=== PATIENT | female | born 1970 | race Caucasian/White ===

== ENCOUNTER → 2016-10-24 | Outpatient (CLI) | payer OTHER ==
[~2016-10-24] MED LIST: ACT30 PO; ALBUAER19 INH; AMT24 PO; ASPCH81X PO; ATOR-24 PO; BUPR75TA20 PO; CEPH500C2 PO; CLOP1TAB54 PO; CYM/30 PO; DOCU100C31 PO; DULO60CA44 PO; FURO-85 PO; GABA-113 PO; GABA1CAP5 PO; GLIP1TAB85 PO; HYDR-5688 PO; LEVO-366 PO; LEVO25TA5 PO; LISI40TA PO; METO25TA56 PO; MORP15TA19 PO; POLY335019 PO; SITA100T3 PO; TORS20TA2 PO; TRIA37.5 PO
[2016-10-24 20:43] LABS: URINE APPEARANCE CLEAR (CLEAR); URINE BILIRUBIN NEG (NEG); URINE COLOR YELLOW; URINE NITRITE NEG (NEG); URINE SPECIFIC GRAVITY 1.008 (1.000-1.030); UROBILINOGEN NEG (NEG)
[2016-10-24 20:56] LABS: MANUAL MICROSCOPIC REQUIRED? NO; REVIEW REQ? YES
== END | disposition home or self-care (01) ==
LOC: C.LABSPEC 12:06
PROVIDERS: ATTEND Nurse Practitioner Family
DX: M54.9 Dorsalgia, unspecified (principal)

== ENCOUNTER → 2016-12-25 | Outpatient (CLI) | payer OTHER ==
[2016-12-25 13:04] LABS: ESTIMATED AVERAGE GLUCOSE 154 mg/dl; HA1C FLAG Normal (Normal)
[2016-12-25 13:21] LABS: ALT/SGPT 33 U/L (12-78); AST/SGOT 25 U/L (15-37); BLOOD UREA NITROGEN 17 mg/dl (7-18); CARBON DIOXIDE 25 mmol/L (21-32); CHLORIDE 103 mmol/L (98-107); CREATININE 0.73 mg/dl (0.60-1.20); GLUCOSE 79 mg/dl (70-99); POTASSIUM 4.2 mmol/L (3.5-5.1); SODIUM 137 mmol/L (136-145)
[2016-12-25 13:32] LABS: ALB/GLOB RATIO 0.8 (0.9-2); ALKALINE PHOSPHATASE 65 U/L (45-117); CHOLESTEROL 129 mg/dl (0-200); CHOLESTEROL/HDL RATIO 5.9; HDL CHOLESTEROL 22 mg/dl; LDL CHOLESTEROL CALCULATED 81 mg/dl; TRIGLYCERIDES 129 mg/dl (0-150); VERY LOW DENSITY LIPOPROT CALC 26 mg/dl
== END | disposition home or self-care (01) ==
LOC: C.LABPBG 09:50
PROVIDERS: ATTEND Family Medicine
DX: I10 Essential (primary) hypertension (principal); E78.5 Hyperlipidemia, unspecified; E03.9 Hypothyroidism, unspecified; E55.9 Vitamin D deficiency, unspecified

== ENCOUNTER → 2017-01-01 | Outpatient (CLI) | payer OTHER ==
--- NOTE | 2017-01-01 09:19 | DIAGNOSTIC IMAGING REPORT ---
ABDOMEN COMPLETE (US) CLINICAL HISTORY: Denies abdominal pain COMPARISON STUDY: CT scan dated February 12, 2012 FINDINGS: No focal hepatic masses are visualized. There is no intra or extrahepatic biliary ductal dilatation. The common bile duct measures 5 mm. The pancreas appears normal as visualized. The gallbladder appears sonographically normal. The common bile duct measures 5 mm. No splenic masses are visualized. The spleen measures 10 cm. The right kidney measures 11.4 cm in length. The left kidney measures 12.1 cm in length. No focal renal masses are visualized. There is no hydronephrosis. Visualized portions aorta are unremarkable in appearance. No abnormality IVC are visualized. IMPRESSION: No significant abnormalities identified Electronically signed by: Collin Zapata M.D. 01/01/2017 9:18 AM Dictated Date/Time: 01/01/2017 9:15 AM
== END | disposition home or self-care (01) ==
LOC: C.ULTRBC 08:25
PROVIDERS: ATTEND Family Medicine
DX: R10.9 Unspecified abdominal pain (principal); R82.99 Other abnormal findings in urine

== ENCOUNTER → 2017-04-18 | Outpatient (CLI) | payer OTHER ==
[2017-04-18 13:11] LABS: BLOOD UREA NITROGEN 30 mg/dl (7-18); CALCIUM 9.8 mg/dl (8.5-10.1); CARBON DIOXIDE 24 mmol/L (21-32); CHLORIDE 101 mmol/L (98-107); GLUCOSE 180 mg/dl (70-99); POTASSIUM 4.1 mmol/L (3.5-5.1); SODIUM 136 mmol/L (136-145)
== END | disposition home or self-care (01) ==
LOC: C.LABPBG 09:17
PROVIDERS: ATTEND Family Medicine
DX: I10 Essential (primary) hypertension (principal)

== ENCOUNTER → 2017-05-31 | Outpatient (CLI) | payer OTHER ==
[2017-05-31 18:41] LABS: BLOOD UREA NITROGEN 25 mg/dl (7-18); BUN/CREATININE RATIO 25.3 (10-20); CARBON DIOXIDE 28 mmol/L (21-32); CHLORIDE 101 mmol/L (98-107); CREATININE 0.99 mg/dl (0.60-1.20); GLUCOSE 218 mg/dl (70-99); POTASSIUM 4.6 mmol/L (3.5-5.1); SODIUM 132 mmol/L (136-145)
== END ==
LOC: C.LABPBG 11:27
PROVIDERS: ATTEND Family Medicine
DX: R25.2 Cramp and spasm (principal)

== ENCOUNTER → 2017-06-18 | Outpatient (CLI) | payer OTHER ==
[2017-06-18 17:01] LABS: BLOOD UREA NITROGEN 24 mg/dl (7-18); BUN/CREATININE RATIO 22.2 (10-20); CALCIUM 9.8 mg/dl (8.5-10.1); CARBON DIOXIDE 26 mmol/L (21-32); CHLORIDE 101 mmol/L (98-107); GLUCOSE 235 mg/dl (70-99); POTASSIUM 4.7 mmol/L (3.5-5.1); SODIUM 134 mmol/L (136-145)
[2017-06-18 17:12] LABS: ALT/SGPT 36 U/L (12-78); CHOLESTEROL 146 mg/dl (0-200); CHOLESTEROL/HDL RATIO 5.8; HDL CHOLESTEROL 25 mg/dl; LDL CHOLESTEROL CALCULATED 86 mg/dl; TRIGLYCERIDES 173 mg/dl (0-150); VERY LOW DENSITY LIPOPROT CALC 35 mg/dl
[2017-06-19 06:04] LABS: ESTIMATED AVERAGE GLUCOSE 192 mg/dl; HA1C FLAG Normal (Normal)
== END | disposition home or self-care (01) ==
LOC: C.LABPBG 13:32
PROVIDERS: ATTEND Family Medicine
DX: E87.1 Hypo-osmolality and hyponatremia (principal); E11.9 Type 2 diabetes mellitus without complications; I10 Essential (primary) hypertension; E78.5 Hyperlipidemia, unspecified; E03.9 Hypothyroidism, unspecified

== ENCOUNTER 2017-07-02 17:18 | Emergency (ER) | payer OTHER ==
[~2017-07-02] VITALS: Ht 154.9 cm; Wt 112.6 kg
[~2017-07-02 17:18] MED LIST changes: -ACT30 PO; -AMT24 PO; -BUPR75TA20 PO; -DOCU100C31 PO; -FURO-85 PO; -GABA1CAP5 PO; -LEVO-366 PO; -POLY335019 PO; -TRIA37.5 PO
[2017-07-02 17:47] VITALS: TEMP 37; Ht 154.9 cm; Wt 112.6 kg
[2017-07-02] MEDS ORDERED: ACT30 PO (18:14)
[2017-07-02] MEDS ORDERED: FURO-85 PO (18:14)
[2017-07-02] MEDS ORDERED: DOCU100C31 PO (18:14)
[2017-07-02] MEDS ORDERED: POLY335019 PO (18:14)
[2017-07-02] MEDS ORDERED: GABA1CAP5 PO (18:14)
[2017-07-02] MEDS ORDERED: BUPR75TA20 PO (18:14)
[2017-07-02] MEDS ORDERED: TRIA37.5 PO (18:14)
[2017-07-02] MEDS ORDERED: AMT24 PO (18:14)
[2017-07-02] MEDS ORDERED: ACETAMINOPHEN 500 MG TAB PO STA (18:29)
[2017-07-02] MEDS ORDERED: CYCLOBENZAPRINE HCL 5 MG TAB PO STA (18:29)
[2017-07-02] MEDS ORDERED: SODIUM CHLORIDE 0.9% 500ML 500 ML IV STA (18:29)
[2017-07-02] MEDS ORDERED: TRAMADOL HCL 50 MG TAB PO STA (18:29)
[2017-07-02] MEDS ORDERED: OPTIRAY 320 IV PRN (18:45)
--- NOTE | 2017-07-02 18:55 | DIAGNOSTIC IMAGING REPORT ---
CHEST ONE VIEW PORTABLE CLINICAL HISTORY: L sided flank pain COMPARISON STUDY: May 28, 2014 FINDINGS: The heart is the upper limits of normal in size. Prominence of the right paratracheal soft tissues, is likely secondary to film rotation. There is central vascular prominence. There is no focal pulmonary consolidation. There are no pleural effusions. There is no free intraperitoneal air.[ IMPRESSION: 1. Central vascular prominence, finding likely accentuated due to the patient's body habitus 2. No evidence of focal pulmonary consolidation 3. No evidence of free intraperitoneal air Electronically signed by: Collin Zapata M.D. 07/02/2017 6:53 PM Dictated Date/Time: 07/02/2017 6:52 PM
[2017-07-02 19:05] LABS: BASO % 0.3 %; BASO ABS # 0.04 K/uL (0-0.2); COMPLETE YES; HEMATOCRIT 44.2 % (37-47); IG% 0.4 %; LYMPH % 16.6 %; LYMPH ABS # 2.09 K/uL (1.2-3.4); MEAN CELL VOLUME 82.9 fL (80-100); MEAN CORPUSCULAR HGB CONC 33.7 g/dl (32-36); MEAN PLATELET VOLUME 10.3 fL (7.4-10.4); MONO % 8.4 %; NEUT % 72.3 %; PLATELET COUNT 298 K/uL (130-400); RED BLOOD COUNT 5.33 M/uL (4.2-5.4); WHITE BLOOD COUNT 12.57 K/uL (4.8-10.8)
--- NOTE | 2017-07-02 19:05 | EMERGENCY ROOM VISIT NOTE ---
History Report prepared by Yakelin: Jose Otero Under the Supervision of: Dr. Torey Meadows M.D. First contact with patient: 17:59 Chief Complaint: FLANK PAIN Stated Complaint: LF SIDE BY KIDNEY IS SWOLLEN & PAINFUL History of Present Illness The patient is a 47 year old white female with a past medical history of HTN, CVA, TIA, hyperlipidemia, diabetes, kidney abscess and kidney stone who presents to the ED with a cc of intermittent left flank pain beginning two days ago. Pain worse with walking, not worsened with urination. Describes pain as "sharp". Patient on Hydrocodone and Morphine for chronic back pain. Recent scan which showed multiple stones in her kidneys. Positive low back pain. Negative nausea, vomiting, fevers, or chills. Patient is a smoker. No recent trauma or injury. Uses a walker to ambulate at home. Patient on Plavix and aspirin for her previous CVA and TIA. Supposed to be on supplemental oxygen at night, but does not regularly wear it. Source of History: patient Onset: Two days ago Position: other (left flank) Quality: sharp Timing: intermittent Modifying Factors (Worsening): other (walking) Associated Symptoms: + back pain (low), No fevers, No chills, No nausea, No vomiting Review of Systems See HPI for pertinent positives and negatives. A total of ten systems were reviewed and were otherwise negative. Past Medical & Surgical Medical Problems: (1) History of asthma (2) History of diabetes mellitus (3) History of hypertension (4) History of kidney stones (5) History of TIA (transient ischemic attack) Family History Diabetes mellitus FH: cancer Hypertension Social History Smoking Status: Current Every Day Smoker Alcohol Use: occasionally Marital Status: Housing Status: lives with family Occupation Status: unemployed Current/Historical Medications Scheduled Albuterol Inhaler (Ventolin Inhaler), 2 PUFFS INH QID Aspirin (Aspirin Chewable), 81 MG PO DAILY Atorvastatin (Lipitor), 80 MG PO DAILY Bupropion (Wellbutrin), 150 MG PO DAILY Clopidogrel Bisulfate (Plavix), 75 MG PO DAILY Docusate Sodium (Docusate Sodium), 100 MG PO BID Furosemide (Lasix), 20 MG PO DAILY Gabapentin (Neurontin), 400 MG PO TID Glipizide Xl (Glucotrol Xl), 10 MG PO QAM Hydrocodone/Acetaminophen 5MG/325MG ([place] 5MG/325MG), 1 TAB PO TID Levofloxacin (Levaquin), 750 MG PO DAILY Levothyroxine Sodium (Levothyroxine Sodium), 25 MCG PO DAILY Lisinopril (Zestril), 40 MG PO QAM Lisinopril (Zestril), 20 MG PO QPM Lubiprostone (Amitiza), 24 MCG PO BID Metoprolol Tartrate (Lopressor) (Lopressor), 50 MG PO BID Morphine Cont Rel (Ms Contin), 15 MG PO TID Pioglitazone (Actos), 45 MG PO DAILY Polyethylene Glycol 3350 (Miralax), 17 GM PO DAILY Sitagliptin Phosphate (Januvia), 100 MG PO DAILY Triamterene/Hctz (Dyazide 37.5MG/25MG), 1 TAB PO TID Allergies Coded Allergies: Aripiprazole (Verified Allergy, Intermediate, confused, 07/02/17) Cephalexin (Unverified Allergy, Unknown, HIVES, 07/02/17) Sulfa Drugs (Verified Allergy, Unknown, ., 07/02/17) Physical Exam Vital Signs Date Time Temp Pulse Resp B/P (MAP) Pulse Ox O2 Delivery O2 Flow Rate FiO2 07/02/17 22:29 87 18 106/68 96 Room Air 07/02/17 21:35 94 18 125/73 96 Room Air 07/02/17 17:47 37.0 105 20 113/65 94 Room Air Physical Exam GENERAL: Awake, alert, well-appearing, NAD, appears older than stated age. HENT: Normocephalic, atraumatic. EYES: Normal conjunctiva. Sclera non-icteric. NECK: Supple. No nuchal rigidity. FROM. RESPIRATORY: Wheezing throughout all lung damon. CARDIAC: RRR, no MRG ABDOMEN: Soft, NTND, BS+ BACK: Reproducible left CVA TTP. No erythema or calor noted. MSK: No chest wall TTP, no LE edema NEURO: GCS 15, CN 2-12 intact, moves all 4s on command SKIN: No rash or jaundice noted. Scars on upper back. Medical Decision & Procedures ER Provider Diagnostic Interpretation: Radiology results as stated below per my review and radiologist interpretation: CT ABD/PELVIS IV CONTRAST ONLY FINDINGS: Lower chest: There is right middle lobe atelectasis/consolidation. Liver: The liver is enlarged. Mild hepatic steatosis is suspected. There is mild hepatomegaly. Gallbladder: Unremarkable. Spleen: Normal in size and attenuation. Pancreas: Unremarkable. Adrenal glands: Unremarkable. Kidneys: There are several right renal calcifications which are likely cortical. There is right renal cortical scarring. There is an 8 mm left renal hypodensity likely representing a cyst. No solid renal masses are visualized. There is no hydronephrosis. Bowel: There are no transition zones indicate bowel obstruction. There is no evidence of acute diverticulitis. The visualized portions of the appendix appear normal. Peritoneum: There is no intraperitoneal free air or abdominal ascites. Vasculature: The abdominal aorta is normal in course and caliber. Adenopathy: None. Pelvic viscera: There is a suspected uterine fibroid. No bladder calculi are visualized. Skeletal structures: No destructive osseous lesions are seen. IMPRESSION: 1. Right renal cortical scarring. 2. No evidence of hydronephrosis 3. No evidence of bowel obstruction. No evidence of free air 4. No evidence of acute diverticulitis. No evidence of acute appendicitis. Electronically signed by: Collin Zapata M.D. 07/02/2017 9:16 PM CHEST ONE VIEW PORTABLE FINDINGS: The heart is the upper limits of normal in size. Prominence of the right paratracheal soft tissues, is likely secondary to film rotation. There is central vascular prominence. There is no focal pulmonary consolidation. There are no pleural effusions. There is no free intraperitoneal air.[ IMPRESSION: 1. Central vascular prominence, finding likely accentuated due to the patient's body habitus 2. No evidence of focal pulmonary consolidation 3. No evidence of free intraperitoneal air Electronically signed by: Collin Zapata M.D. 07/02/2017 6:53 PM Laboratory Results 07/02/17 18:50 Red Blood Count 5.33, Mean Corpuscular Volume 82.9, Mean Corpuscular Hemoglobin 28.0, Mean Corpuscular Hemoglobin Concent 33.7, Mean Platelet Volume 10.3, Neutrophils (%) (Auto) 72.3, Lymphocytes (%) (Auto) 16.6, Monocytes (%) (Auto) 8.4, Eosinophils (%) (Auto) 2.0, Basophils (%) (Auto) 0.3, Neutrophils # (Auto) 9.09, Lymphocytes # (Auto) 2.09, Monocytes # (Auto) 1.05, Eosinophils # (Auto) 0.25, Basophils # (Auto) 0.04 07/02/17 18:50 Test 07/02/17 18:50 07/02/17 19:10 07/02/17 20:56 White Blood Count 12.57 K/uL (4.8-10.8) Red Blood Count 5.33 M/uL (4.2-5.4) Hemoglobin 14.9 g/dL (12.0-16.0) Hematocrit 44.2 % (37-47) Mean Corpuscular Volume 82.9 fL (80-100) Mean Corpuscular Hemoglobin 28.0 pg (25-34) Mean Corpuscular Hemoglobin Concent 33.7 g/dl (32-36) Platelet Count 298 K/uL (130-400) Mean Platelet Volume 10.3 fL (7.4-10.4) Neutrophils (%) (Auto) 72.3 % Lymphocytes (%) (Auto) 16.6 % Monocytes (%) (Auto) 8.4 % Eosinophils (%) (Auto) 2.0 % Basophils (%) (Auto) 0.3 % Neutrophils # (Auto) 9.09 K/uL (1.4-6.5) Lymphocytes # (Auto) 2.09 K/uL (1.2-3.4) Monocytes # (Auto) 1.05 K/uL (0.11-0.59) Eosinophils # (Auto) 0.25 K/uL (0-0.5) Basophils # (Auto) 0.04 K/uL (0-0.2) RDW Standard Deviation 53.8 fL (36.4-46.3) RDW Coefficient of Variation 17.5 % (11.5-14.5) Immature Granulocyte % (Auto) 0.4 % Immature Granulocyte # (Auto) 0.05 K/uL (0.00-0.02) Prothrombin Time 11.0 SECONDS (9.0-12.0) Prothromb Time International Ratio 1.0 (0.9-1.1) Anion Gap 9.0 mmol/L (3-11) Est Creatinine Clear Calc Drug Dose 67.4 ml/min Estimated GFR () 62.3 Estimated GFR (Non- 53.8 BUN/Creatinine Ratio 19.8 (10-20) Calcium Level 9.6 mg/dl (8.5-10.1) Total Bilirubin 0.3 mg/dl (0.2-1) Direct Bilirubin mg/dl (0-0.2) Aspartate Amino Transf (AST/SGOT) 26 U/L (15-37) Alanine Aminotransferase (ALT/SGPT) 28 U/L (12-78) Alkaline Phosphatase 62 U/L (45-117) Total Protein 7.5 gm/dl (6.4-8.2) Albumin 3.0 gm/dl (3.4-5.0) Lipase 146 U/L (73-393) Chemistry Specimen Hemolysis Urine Color DK YELLOW Urine Appearance CLEAR (CLEAR) Urine pH 5.5 (4.5-7.5) Urine Specific [place] 1.021 (1.000-1.030) Urine Protein TRACE (NEG) Urine Glucose (UA) NEG (NEG) Urine Ketones TRACE (NEG) Urine Occult Blood TRACE (NEG) Urine Nitrite POS (NEG) Urine Bilirubin NEG (NEG) Urine Urobilinogen NEG (NEG) Urine Leukocyte Esterase SMALL (NEG) Urine WBC (Auto) >30 /hpf (0-5) Urine RBC (Auto) 5-10 /hpf (0-4) Urine Hyaline Casts (Auto) 5-10 /lpf (0-5) Urine Epithelial Cells (Auto) >30 /lpf (0-5) Urine Bacteria (Auto) 3+ (NEG) Troponin I < 0.015 ng/ml (0-0.045) Laboratory results reviewed by me Medications Administered Medications (Trade) Dose Ordered Sig/Alisha Route Start Time Stop Time Status Last Admin Dose Admin Sodium Chloride 500 ml @ 500 mls/hr Q1H STAT IV 07/02/17 18:29 07/02/17 19:28 DC 07/02/17 18:29 500 MLS/HR Tramadol HCl (Ultram Tab) 25 mg NOW STAT PO 07/02/17 18:29 07/02/17 18:33 DC 07/02/17 19:06 25 MG Acetaminophen (Tylenol Tab) 1,000 mg NOW STAT PO 07/02/17 18:29 07/02/17 18:33 DC 07/02/17 19:07 1,000 MG Cyclobenzaprine HCl (Flexeril Tab) 10 mg ONE STAT PO 07/02/17 18:29 07/02/17 18:33 DC 07/02/17 19:06 10 MG Ceftriaxone Sodium (Rocephin Inj) 1 gm NOW STAT IV 07/02/17 19:59 07/02/17 20:00 DC 07/02/17 19:59 1 GM ECG Indication: back/shoulder pain Rate (beats per minute): 102 Rhythm: sinus tachycardia Findings: 1st degree AV block, other (Prolonged DE. Normal axis. Questionable elevation in V4 and V5.) Comparison ECG Date: May 28, 2014 Change: no significant change ED Course 1820: The patient was evaluated in room A2. A complete history and physical exam was performed. 2209: I reevaluated the patient. Discussed results and discharge instructions: she verbalized understanding and agreement. The patient is ready for discharge. Medical Decision The patient is a 47 year old white female with a past medical history of HTN, CVA, TIA, hyperlipidemia, diabetes, kidney abscess and kidney stone who presents to the ED with a cc of intermittent left flank pain beginning two days ago. Differential diagnosis: Etiologies such as renal colic, appendicitis, diverticulitis, mesenteric ischemia, aortic pathology, infections, inflammatory bowel disease, PUD, biliary pathology, UTI, as well as others were entertained. Patient seen and evaluated the bedside. Patient has been complaining of some left-sided flank pain since Sunday. Patient's pain has been fairly constant. Patient does take aspirin and Plavix for prior CVAs and TIAs. Patient denies any recent trauma. Patient is a history of kidney stones. Patient denies any fevers or chills addition to nausea or vomiting. Patient states that her pain is worse when she voids. Denies any burning urination or blood in the urine. Patient did have labs, a urine, a CT of the abdomen pelvis with contrast completed. Patient was noted to have a urinary tract infection. Patient is CT the abdomen and pelvis didn't show any acute medical or surgical emergency. Patient's pain improved. Heart rate improved. EKG was fairly benign and had a negative troponin. Chest x-ray was clear. Patient was given strict follow-up, discharge , return precautions. Patient agreed with plan of care and patient was safely discharged home. Medication Reconcilliation Current Medication List: was personally reviewed by me Blood Pressure Screening Patient's blood pressure: Normal blood pressure Blood pressure disposition: Did not require urgent referral Impression Primary Impression: Left flank pain Additional Impressions: Encounter for smoking cessation counseling UTI (urinary tract infection) Scribe Attestation The scribe's documentation has been prepared under my direction and personally reviewed by me in its entirety. I confirm that the note above accurately reflects all work, treatment, procedures, and medical decision making performed by me. Departure Information Dispostion Home / Self-Care Prescriptions Levofloxacin (Levaquin) 500 Mg Tab 750 MG PO DAILY for 7 Days, #11 TAB Prov: Torey Meadows M.D. 07/02/17 Referrals Brandee Guadarrama MD (PCP) Patient Instructions ED UTI Cystitis Female, My [facility] Additional Instructions Please return to the emergency department if you have worsening or recurrent symptoms not amenable to at-home treatment. Please call for a follow-up appointment with her primary care physician. Please take your medications as prescribed. If you have other concerns and/or complaints please feel free to also call your primary care physician's office or return the ED for further evaluation, management, and treatment. You were found to have an elevated blood pressure today (>120 sytolic or >90 diastolic). Per medicare guidelines, you need to follow up with this blood pressure screening with your Primary Care Physician (PCP). For a new PCP call [phone]. You received narcotic or benzodiazepene medication while in the emergency room today. This is an addictive medication that may cause drowziness as well as constipation. Do not drive, operate heavy machinery, or drink alcohol under the influence of this medication. You may take 600 mg Ibuprofen every 6 hours as needed for pain with food for no more than 2 consecutive days. You may take tylenol 1000mg every 6 hours as needed for pain. You may take motrin and tylenol separately or at the same time. Take antibiotic as prescribed. You have been examined and treated today on an emergency basis only. This is not a substitute for, or an effort to provide, complete comprehensive medical care. It is impossible to recognize and treat all injuries or illnesses in a single emergency department visit. It is therefore important that you follow up closely with [facility]. Call as soon as possible for an appointment. Thank you for your time and consideration. I look forward to speaking with you again soon. Please don't hesitate to call us if you have any questions. Problem Qualifiers Additional Impressions: UTI (urinary tract infection) Urinary tract infection type: acute cystitis Hematuria presence: with hematuria Qualified Codes: N30.01 - Acute cystitis with hematuria
[2017-07-02 19:24] LABS: URINE APPEARANCE CLEAR (CLEAR); URINE BILIRUBIN NEG (NEG); URINE COLOR DK YELLOW; URINE EPITHELIAL CELL AUTO >30 /lpf (0-5); URINE NITRITE POS (NEG); URINE PH 5.5 (4.5-7.5); URINE SPECIFIC GRAVITY 1.021 (1.000-1.030); UROBILINOGEN NEG (NEG); ZZUR CULT IF INDIC CLEAN CATCH YES
[2017-07-02 19:25] LABS: MANUAL MICROSCOPIC REQUIRED? NO; REVIEW REQ? NO
[2017-07-02] MEDS ORDERED: CEFTRIAXONE SOD INJ 1 GM ADDVIAL IV STA (19:59)
[2017-07-02 20:16] LABS: ALT/SGPT 28 U/L (12-78); AST/SGOT 26 U/L (15-37)
[2017-07-02 20:17] LABS: ALKALINE PHOSPHATASE 62 U/L (45-117); BLOOD UREA NITROGEN 24 mg/dl (7-18); BUN/CREATININE RATIO 19.8 (10-20); CALCIUM 9.6 mg/dl (8.5-10.1); CARBON DIOXIDE 23 mmol/L (21-32); CHLORIDE 106 mmol/L (98-107); GLUCOSE 165 mg/dl (70-99); POTASSIUM 4.1 mmol/L (3.5-5.1); SODIUM 138 mmol/L (136-145)
--- NOTE | 2017-07-02 21:17 | DIAGNOSTIC IMAGING REPORT ---
CT ABD/PELVIS IV CONTRAST ONLY CLINICAL HISTORY: L flank pain; h/o of renal abscess and kidney stones COMPARISON STUDY: 02/12/2012 TECHNIQUE: Following the IV administration of 116 mL of Optiray-320, CT scan of the abdomen and pelvis was performed from the lung bases to the proximal femurs. Images are reviewed in the axial, sagittal, and coronal planes. IV contrast was administered without complication. A dose lowering technique was utilized adhering to the principles of ALARA. CT DOSE: 1453.98 mGy.cm FINDINGS: Lower chest: There is right middle lobe atelectasis/consolidation. Liver: The liver is enlarged. Mild hepatic steatosis is suspected. There is mild hepatomegaly. Gallbladder: Unremarkable. Spleen: Normal in size and attenuation. Pancreas: Unremarkable. Adrenal glands: Unremarkable. Kidneys: There are several right renal calcifications which are likely cortical. There is right renal cortical scarring. There is an 8 mm left renal hypodensity likely representing a cyst. No solid renal masses are visualized. There is no hydronephrosis. Bowel: There are no transition zones indicate bowel obstruction. There is no evidence of acute diverticulitis. The visualized portions of the appendix appear normal. Peritoneum: There is no intraperitoneal free air or abdominal ascites. Vasculature: The abdominal aorta is normal in course and caliber. Adenopathy: None. Pelvic viscera: There is a suspected uterine fibroid. No bladder calculi are visualized. Skeletal structures: No destructive osseous lesions are seen. IMPRESSION: 1. Right renal cortical scarring. 2. No evidence of hydronephrosis 3. No evidence of bowel obstruction. No evidence of free air 4. No evidence of acute diverticulitis. No evidence of acute appendicitis. Electronically signed by: Collin Zapata M.D. 07/02/2017 9:16 PM Dictated Date/Time: 07/02/2017 9:11 PM
[2017-07-02] MEDS ORDERED: LEVO-366 PO (22:14)
[2017-07-02 22:29] VITALS: BP 106/68; PULSE 87; O2SAT 96
--- NOTE | 2017-07-04 13:13 | Pharmacy Progress Note ---
ED Pharmacist Culture FollowUp Date of Service: Jul 04, 2017. Patient was discharged on levaquin for cystitis which was later found to be resistant to the E. Coli. Called patient regarding E. coli urine culture. She informed me she was not experiencing any new symptoms and was still afebrile. Prescription for macrobid 100mg BID X 7 days called to [place] pharmacy ) at the patient's request. Case discussed with Dr. Castle, who is the prescribing provider.
== END 2017-07-02 22:55 | disposition home or self-care (01) ==
LOC: C.EDB 17:19 → C.EDA 22:55
DX: R10.9 Unspecified abdominal pain (principal); Z71.6 Tobacco abuse counseling; N30.01 Acute cystitis with hematuria; I10 Essential (primary) hypertension; E11.9 Type 2 diabetes mellitus without complications; J45.909 Unspecified asthma, uncomplicated; E78.5 Hyperlipidemia, unspecified; F17.200 Nicotine dependence, unspecified, uncomplicated; Z86.73 Personal history of transient ischemic attack (TIA), and cerebral infarction without residual deficits; Z87.442 Personal history of urinary calculi; Z83.3 Family history of diabetes mellitus; Z82.49 Family history of ischemic heart disease and other diseases of the circulatory system; Z79.02 Long term (current) use of antithrombotics/antiplatelets; Z79.82 Long term (current) use of aspirin; Z79.84 Long term (current) use of oral hypoglycemic drugs; Z79.899 Other long term (current) drug therapy

== ENCOUNTER → 2017-07-19 | Outpatient (CLI) | payer OTHER ==
[~2017-07-19] MED LIST changes: +ACT30 PO; +AMT24 PO; +BUPR75TA20 PO; -CEPH500C2 PO; -CYM/30 PO; +DOCU100C31 PO; -DULO60CA44 PO; +FURO-85 PO; -GABA-113 PO; +GABA1CAP5 PO; +POLY335019 PO; -TORS20TA2 PO; +TRIA37.5 PO
[2017-07-19 17:28] LABS: BASO % 0.4 %; BASO ABS # 0.04 K/uL (0-0.2); COMPLETE YES; HEMATOCRIT 45.5 % (37-47); IG% 0.3 %; LYMPH % 21.4 %; LYMPH ABS # 2.32 K/uL (1.2-3.4); MEAN CELL VOLUME 84.7 fL (80-100); MEAN CORPUSCULAR HEMOGLOBIN 29.2 pg (25-34); MEAN CORPUSCULAR HGB CONC 34.5 g/dl (32-36); MEAN PLATELET VOLUME 10.2 fL (7.4-10.4); MONO % 7.8 %; NEUT % 67.1 %; PLATELET COUNT 282 K/uL (130-400); RED BLOOD COUNT 5.37 M/uL (4.2-5.4); WHITE BLOOD COUNT 10.83 K/uL (4.8-10.8)
[2017-07-19 18:17] LABS: ALB/GLOB RATIO 0.8 (0.9-2); ALKALINE PHOSPHATASE 79 U/L (45-117); ALT/SGPT 36 U/L (12-78); AST/SGOT 24 U/L (15-37); BLOOD UREA NITROGEN 26 mg/dl (7-18); BUN/CREATININE RATIO 23.6 (10-20); CALCIUM 9.4 mg/dl (8.5-10.1); CARBON DIOXIDE 25 mmol/L (21-32); CHLORIDE 102 mmol/L (98-107); GLUCOSE 188 mg/dl (70-99); POTASSIUM 4.6 mmol/L (3.5-5.1); SODIUM 135 mmol/L (136-145)
== END | disposition home or self-care (01) ==
LOC: C.LABPBG 13:09
PROVIDERS: ATTEND Family Medicine
DX: R68.83 Chills (without fever) (principal)

== ENCOUNTER → 2017-07-26 | Outpatient (CLI) | payer OTHER | END | disposition home or self-care (01) | LOC: C.LABPBG 13:33 | PROVIDERS: ATTEND Family Medicine | DX: R68.83 Chills (without fever) (principal) ==

== ENCOUNTER → 2017-12-06 | Outpatient (CLI) | payer OTHER ==
[~2017-12-06] MED LIST changes: +GABA-1220 PO; -GABA1CAP5 PO
[2017-12-06 13:02] LABS: HEMOGLOBIN A1C 7.2 % (4.5-5.6)
[2017-12-06 13:15] LABS: ALT/SGPT 36 U/L (12-78); BLOOD UREA NITROGEN 29 mg/dl (7-18); CALCIUM 9.2 mg/dl (8.5-10.1); CARBON DIOXIDE 24 mmol/L (21-32); CHOLESTEROL 147 mg/dl (0-200); CREATININE 1.11 mg/dl (0.60-1.20); GLUCOSE 129 mg/dl (70-99); POTASSIUM 4.1 mmol/L (3.5-5.1); SODIUM 135 mmol/L (136-145)
[2017-12-06 13:25] LABS: LDL CHOLESTEROL CALCULATED 91 mg/dl
== END | disposition home or self-care (01) ==
LOC: C.LABPBG 08:57
PROVIDERS: ATTEND Family Medicine
DX: E11.9 Type 2 diabetes mellitus without complications (principal); E78.5 Hyperlipidemia, unspecified; E03.9 Hypothyroidism, unspecified

== ENCOUNTER 2017-12-27 13:30 | Emergency (ER) | payer OTHER ==
[~2017-12-27] VITALS: Ht 152.4 cm; Wt 116.5 kg
[~2017-12-27 13:30] MED LIST changes: -CLOP1TAB54 PO; -TRIA37.5 PO
[2017-12-27] MEDS ORDERED: ALBUT/IPRATROP 3MG/0.5MG NEB 3 ML VIAL INH STA (13:43)
--- NOTE | 2017-12-27 13:44 | EMERGENCY ROOM VISIT NOTE ---
History Report prepared by Yakelin: Matthew William Under the Supervision of: Dr. Ant Pappas D.O. First contact with patient: 13:33 Stated Complaint: ILLNESS History of Present Illness The patient is a 47 year old female who presents to the Emergency Room with complaints of intermittent hematemesis and coughing up blood that began this morning at 0200, 11.5 hours ago. The patient states that when she woke up this morning she immediately "vomited" a large blood clot. She states that she then vomited one more clot, before "coughing" up blood persistently. The at bedside confirmed that there was a significant amount of blood. The patient cannot tell if the blood is coming from her lungs or belly. She adds that she does have trouble with nosebleeds and has had her nose cauterized in the past. She does feel fatigued, but denies any fevers, chills, or nausea. She is on Plavix and Aspirin secondary to a history of mini-strokes. She has COPD, and does smoke 2 packs per day. Source of History: patient Onset: 11.5 hours [employer] Position: chest Quality: other (Hematemesis/Vomiting blood) Timing: intermittent Associated Symptoms: + fatigue, No chest pain, No nausea Review of Systems See HPI for pertinent positives & negatives. A total of 10 systems reviewed and were otherwise negative. Past Medical & Surgical Medical Problems: (1) History of asthma (2) History of diabetes mellitus (3) History of hypertension (4) History of kidney stones (5) History of TIA (transient ischemic attack) Family History Diabetes mellitus FH: cancer Hypertension Social History Smoking Status: Current Every Day Smoker Alcohol Use: occasionally Marital Status: Housing Status: lives with family Occupation Status: unemployed Current/Historical Medications Scheduled Albuterol Hfa (Ventolin Hfa), 2-4 PUFFS INH Q6H Amlodipine (Norvasc), 5 MG PO DAILY Aspirin (Aspirin Chewable), 81 MG PO DAILY Atorvastatin (Lipitor), 80 MG PO DAILY Azithromycin (Zithromax), 250 MG PO DAILY Bupropion (Wellbutrin Sr), 150 MG PO BID Buspirone Hcl (Buspar), 15 MG PO BID Clopidogrel Bisulfate (Plavix), 75 MG PO DAILY Gabapentin (Gabapentin), 600 MG PO TID Glipizide Xl (Glucotrol Xl), 10 MG PO QAM Hydrocodone/Acetaminophen 5MG/325MG ([place] 5MG/325MG), 1 TAB PO TID Levothyroxine Sodium (Levothyroxine Sodium), 25 MCG PO DAILY Lisinopril (Zestril), 40 MG PO QAM Metoprolol Tartrate (Lopressor) (Lopressor), 50 MG PO BID Norethindrone (Aygestin), 5 MG PO BID Pioglitazone (Actos), 45 MG PO DAILY Sitagliptin Phosphate (Januvia), 100 MG PO DAILY Triamterene/Hctz (Dyazide 37.5MG/25MG), 1 TAB PO DAILY Scheduled PRN Morphine Sulfate (Morphine Sulfate ER), 15 MG PO TID PRN for Pain Allergies Coded Allergies: Aripiprazole (Verified Allergy, Intermediate, confused, 07/02/17) Cephalexin (Unverified Allergy, Unknown, HIVES, 07/02/17) Sulfa Drugs (Verified Allergy, Unknown, ., 07/02/17) Physical Exam Vital Signs Date Time Temp Pulse Resp B/P (MAP) Pulse Ox O2 Delivery O2 Flow Rate FiO2 12/27/17 17:30 86 19 107/85 93 Room Air 12/27/17 15:29 86 17 112/77 93 Room Air 12/27/17 14:17 87 25 121/75 95 Room Air 12/27/17 13:57 Room Air 12/27/17 13:57 96 Room Air 12/27/17 13:51 93 12/27/17 13:46 37.1 89 22 125/93 96 Room Air Physical Exam GENERAL: Patient is awake, alert, and in no acute distress. Patient is resting comfortably and showing no signs of anxiety EYES: The conjunctivae are clear. The pupils are round and reactive. EARS, NOSE, MOUTH AND THROAT: The nose is without any evidence of any deformity. Mucous membranes are moist tongue is midline. There is no clotted blood in the naris or posterior oropharynx. NECK: The neck is nontender and supple. RESPIRATORY: There was expiratory wheezing noted bilaterally, no tachypnea or conversational dyspnea noted. There is no evidence rhonchi or rales CARDIOVASCULAR: Regular rate and rhythm noted there no murmurs rubs or gallops normal S1 normal S2 GASTROINTESTINAL: The abdomen is soft. Bowel sounds are present in all quadrants. Abdomen is nontender MUSCULOSKELETAL/EXTREMITIES: There is no evidence of gross deformity full range of motion is noted in the hips and shoulders. NO pedal edema noted. NO calf tenderness appreciated. SKIN: There is no obvious evidence of any rash. There are no petechiae, pallor or cyanosis noted. NEUROLOGIC: Patient is awake alert and oriented x3 strength is symmetric patellar reflexes are 2+ bilaterally Medical Decision & Procedures ER Provider Diagnostic Interpretation: Radiology results as stated below per my review and radiologist interpretation: (CHEST FOR PE) ANGIO WITH CT DOSE: 654.39 mGycm HISTORY: 47 years-old Female presents with acute shortness of breath TECHNIQUE: Multiple CTA images of the chest were obtained after the intravenous administration of 93 ml Optiray 320. Coronal and sagittal MIPS were obtained from the axial data set and were submitted for review. A dose lowering technique was utilized adhering to the principles of ALARA. COMPARISON: Chest radiograph 12/27/2017, CT abdomen and pelvis 02/12/2012 FINDINGS: CTA: Heart is normal in size without pericardial effusion. Thoracic aorta is normal in both course and caliber without aneurysm or dissection. The imaged great vessels appear patent. Mild atherosclerosis of the aorta. The left vertebral artery appears very diminutive in size. The pulmonary arterial tree is opacified to the level of the segmental branches and demonstrates no focal filling defects to suggest pulmonary thromboembolic disease. CT CHEST: No dominant thyroid nodule. Calcifications are seen within the right thyroid lobe. Mildly enlarged 11 mm right hilar lymph node, likely reactive. No pneumothorax or pleural effusion. There is mild subsegmental dependent bibasilar atelectasis. Subsegmental are calcified granuloma of the right lower lobe. Linear subsegmental atelectasis or scarring of the inferior segment lingula and lateral segment right middle lobe. Central airways are patent. No acute abnormality identified within the imaged upper abdomen. Soft tissues appear unremarkable. Multilevel endplate spurring about the spine. IMPRESSION: 1. No acute intrathoracic abnormality identified, specifically no acute aortic pathology or evidence of pulmonary thromboembolic disease. 2. No lobar airspace consolidation to suggest pneumonia. The above report was generated using voice recognition software. It may contain grammatical, syntax or spelling errors. Electronically signed by: Sean Black M.D. 12/27/2017 4:23 PM Dictated Date/Time: 12/27/2017 4:17 PM Laboratory Results 12/27/17 14:10 Red Blood Count 5.47, Mean Corpuscular Volume 81.9, Mean Corpuscular Hemoglobin 27.4, Mean Corpuscular Hemoglobin Concent 33.5, Mean Platelet Volume 10.4, Neutrophils (%) (Auto) 70.2, Lymphocytes (%) (Auto) 18.4, Monocytes (%) (Auto) 7.5, Eosinophils (%) (Auto) 3.2, Basophils (%) (Auto) 0.4, Neutrophils # (Auto) 6.43, Lymphocytes # (Auto) 1.69, Monocytes # (Auto) 0.69, Eosinophils # (Auto) 0.29, Basophils # (Auto) 0.04 12/27/17 14:10 Test 12/27/17 14:10 12/27/17 14:15 White Blood Count 9.17 K/uL (4.8-10.8) Red Blood Count 5.47 M/uL (4.2-5.4) Hemoglobin 15.0 g/dL (12.0-16.0) Hematocrit 44.8 % (37-47) Mean Corpuscular Volume 81.9 fL (80-100) Mean Corpuscular Hemoglobin 27.4 pg (25-34) Mean Corpuscular Hemoglobin Concent 33.5 g/dl (32-36) Platelet Count 294 K/uL (130-400) Mean Platelet Volume 10.4 fL (7.4-10.4) Neutrophils (%) (Auto) 70.2 % Lymphocytes (%) (Auto) 18.4 % Monocytes (%) (Auto) 7.5 % Eosinophils (%) (Auto) 3.2 % Basophils (%) (Auto) 0.4 % Neutrophils # (Auto) 6.43 K/uL (1.4-6.5) Lymphocytes # (Auto) 1.69 K/uL (1.2-3.4) Monocytes # (Auto) 0.69 K/uL (0.11-0.59) Eosinophils # (Auto) 0.29 K/uL (0-0.5) Basophils # (Auto) 0.04 K/uL (0-0.2) RDW Standard Deviation 50.9 fL (36.4-46.3) RDW Coefficient of Variation 16.9 % (11.5-14.5) Immature Granulocyte % (Auto) 0.3 % Immature Granulocyte # (Auto) 0.03 K/uL (0.00-0.02) Prothrombin Time 10.5 SECONDS (9.0-12.0) Prothromb Time International Ratio 1.0 (0.9-1.1) Activated Partial Thromboplast Time 25.9 SECONDS (21.0-31.0) Partial Thromboplastin Ratio 1.0 Urine Color YELLOW Urine Appearance CLEAR (CLEAR) Urine pH 8.0 (4.5-7.5) Urine Specific Dixon 1.010 (1.000-1.030) Urine Protein NEG (NEG) Urine Glucose (UA) NEG (NEG) Urine Ketones NEG (NEG) Urine Occult Blood TRACE (NEG) Urine Nitrite NEG (NEG) Urine Bilirubin NEG (NEG) Urine Urobilinogen NEG (NEG) Urine Leukocyte Esterase NEG (NEG) Urine WBC (Auto) 1-5 /hpf (0-5) Urine RBC (Auto) 0-4 /hpf (0-4) Urine Hyaline Casts (Auto) 1-5 /lpf (0-5) Urine Epithelial Cells (Auto) >30 /lpf (0-5) Urine Bacteria (Auto) NEG (NEG) Anion Gap 7.0 mmol/L (3-11) Est Creatinine Clear Calc Drug Dose 67.6 ml/min Estimated GFR () 62.3 Estimated GFR (Non- 53.8 BUN/Creatinine Ratio 19.3 (10-20) Calcium Level 8.9 mg/dl (8.5-10.1) Total Bilirubin 0.4 mg/dl (0.2-1) Aspartate Amino Transf (AST/SGOT) 26 U/L (15-37) Alanine Aminotransferase (ALT/SGPT) 31 U/L (12-78) Alkaline Phosphatase 78 U/L (45-117) Troponin I < 0.015 ng/ml (0-0.045) Pro-B-Type Natriuretic Peptide 22 pg/ml (0-450) Total Protein 7.4 gm/dl (6.4-8.2) Albumin 3.0 gm/dl (3.4-5.0) Globulin 4.4 gm/dl (2.5-4.0) Albumin/Globulin Ratio 0.7 (0.9-2) Bedside D-Dimer > 450 ng/mlFEU (0-450) Laboratory results per my review. Medications Administered Medications (Trade) Dose Ordered Sig/Alisha Route Start Time Stop Time Status Last Admin Dose Admin Albuterol/ Ipratropium (Duoneb) 3 ml NOW STAT INH 12/27/17 13:43 12/27/17 13:45 DC 12/27/17 14:17 3 ML Azithromycin (Zithromax Tab) 500 mg NOW STAT PO 12/27/17 16:54 12/27/17 16:55 DC 12/27/17 17:29 500 MG ECG Per My Interpretation Indication: SOB/dyspnea Rate (beats per minute): 89 Rhythm: normal sinus Findings: other (no HUA/STD, no PVCs) Comparison ECG Date: 07/02/2017 ED Course 1335: The patient was evaluated in room B7. A complete history and physical examination were performed. 1343: Ordered Duoneb 3 mL INH. 1654: Ordered Azithromycin 500 mg PO. 1706: Upon reevaluation, the patient is resting in bed. I discussed the results and treatment plan with her. She verbalized agreement of the treatment plan. The patient was discharged home. Medical Decision Differential diagnosis: Etiologies such as gastroenteritis, food borne illness, infections, appendicitis , diverticulitis, inflammatory bowel disease, obstruction, GI bleed, biliary pathology, as well as others were entertained. Nursing notes reviewed. The patient is a 47-year-old female who presented to the emergency department for hemoptysis. This does not appear to be hematemesis by history as well as physical exam. She does state that she has had some epistaxis recently but no source of the blood was noted in the nasopharynx were on nasal exam. I discussed patient's laboratory and radiographic studies with her. I was concerned hemoptysis could be secondary to a pulmonary embolism. For this reason d-dimer and CT the chest were ordered. I discussed the patient's laboratory and radiographic studies with her. At this time she does continue to smoke. She was encouraged to stop smoking as soon as possible. She was also encouraged to continue all medications as prescribed. It is possible this is secondary to a bronchitis so she was started on a course of Zithromax. She was encouraged to follow-up with her family doctor soon as possible but return to the emergency department immediately if symptoms change worsen or the need arises. Medication Reconcilliation Current Medication List: was personally reviewed by me Blood Pressure Screening Patient's blood pressure: Normal blood pressure Impression Primary Impression: Bronchitis Scribe Attestation The scribe's documentation has been prepared under my direction and personally reviewed by me in its entirety. I confirm that the note above accurately reflects all work, treatment, procedures, and medical decision making performed by me. Departure Information Dispostion Home / Self-Care Prescriptions Azithromycin (Zithromax) 250 Mg Tab 250 MG PO DAILY, #4 TAB Prov: Ant Pappas, 12/27/17 Referrals Brandee Guadarrama MD (PCP) Forms HOME CARE DOCUMENTATION FORM, IMPORTANT VISIT INFORMATION, WORK / SCHOOL INSTRUCTIONS Patient Instructions My [facility] Additional Instructions Continue all medications as prescribed. Try to stop smoking. Follow-up with your family doctor soon as possible. Take the next dose of Zithromax tomorrow, Sunday, because you were given the first dose in the emergency department today.
[2017-12-27 13:46] VITALS: TEMP 37.1
[2017-12-27 13:57] VITALS: O2SAT 96; Ht 152.4 cm; Wt 116.5 kg
[2017-12-27] MEDS ORDERED: BUSP15TA70 PO (14:25)
[2017-12-27] MEDS ORDERED: METO50TA16 PO (14:25)
[2017-12-27] MEDS ORDERED: VNTHFA/IN INH (14:25)
[2017-12-27] MEDS ORDERED: NRN600 PO (14:25)
[2017-12-27] MEDS ORDERED: BUPR-79 PO (14:25)
[2017-12-27] MEDS ORDERED: MRPSR15 PO (14:25)
[2017-12-27] MEDS ORDERED: ACT30 PO (14:25)
[2017-12-27] MEDS ORDERED: AMLO-110 PO (14:25)
[2017-12-27] MEDS ORDERED: NORE5TAB5 PO (14:25)
[2017-12-27 14:29] LABS: BASO % 0.4 %; BASO ABS # 0.04 K/uL (0-0.2); EOS % 3.2 %; EOS ABS # 0.29 K/uL (0-0.5); HEMATOCRIT 44.8 % (37-47); IG# 0.03 K/uL (0.00-0.02); LYMPH % 18.4 %; LYMPH ABS # 1.69 K/uL (1.2-3.4); MEAN CELL VOLUME 81.9 fL (80-100); MEAN CORPUSCULAR HEMOGLOBIN 27.4 pg (25-34); MEAN CORPUSCULAR HGB CONC 33.5 g/dl (32-36); MEAN PLATELET VOLUME 10.4 fL (7.4-10.4); MONO % 7.5 %; MONO ABS # 0.69 K/uL (0.11-0.59); NEUT % 70.2 %; NEUT ABS # 6.43 K/uL (1.4-6.5); PLATELET COUNT 294 K/uL (130-400); RED CELL DISTRIBUTION WIDTH CV 16.9 % (11.5-14.5); RED CELL DISTRIBUTION WIDTH SD 50.9 fL (36.4-46.3); WHITE BLOOD COUNT 9.17 K/uL (4.8-10.8)
[2017-12-27 14:36] LABS: PTT PATIENT 25.9 SECONDS (21.0-31.0)
[2017-12-27 14:48] LABS: ALT/SGPT 31 U/L (12-78); AST/SGOT 26 U/L (15-37); BLOOD UREA NITROGEN 23 mg/dl (7-18); CALCIUM 8.9 mg/dl (8.5-10.1); CARBON DIOXIDE 25 mmol/L (21-32); GLUCOSE 161 mg/dl (70-99); POTASSIUM 4.5 mmol/L (3.5-5.1); SODIUM 135 mmol/L (136-145)
[2017-12-27 14:52] LABS: ALKALINE PHOSPHATASE 78 U/L (45-117); TOTAL PROTEIN 7.4 gm/dl (6.4-8.2)
[2017-12-27] MEDS ORDERED: OPTIRAY 320 IV PRN (15:30)
--- NOTE | 2017-12-27 16:24 | DIAGNOSTIC IMAGING REPORT ---
(CHEST FOR PE) ANGIO WITH CT DOSE: 654.39 mGycm HISTORY: 47 years-old Female presents with acute shortness of breath TECHNIQUE: Multiple CTA images of the chest were obtained after the intravenous administration of 93 ml Optiray 320. Coronal and sagittal MIPS were obtained from the axial data set and were submitted for review. A dose lowering technique was utilized adhering to the principles of ALARA. COMPARISON: Chest radiograph 12/27/2017, CT abdomen and pelvis 02/12/2012 FINDINGS: CTA: Heart is normal in size without pericardial effusion. Thoracic aorta is normal in both course and caliber without aneurysm or dissection. The imaged great vessels appear patent. Mild atherosclerosis of the aorta. The left vertebral artery appears very diminutive in size. The pulmonary arterial tree is opacified to the level of the segmental branches and demonstrates no focal filling defects to suggest pulmonary thromboembolic disease. CT CHEST: No dominant thyroid nodule. Calcifications are seen within the right thyroid lobe. Mildly enlarged 11 mm right hilar lymph node, likely reactive. No pneumothorax or pleural effusion. There is mild subsegmental dependent bibasilar atelectasis. Subsegmental are calcified granuloma of the right lower lobe. Linear subsegmental atelectasis or scarring of the inferior segment lingula and lateral segment right middle lobe. Central airways are patent. No acute abnormality identified within the imaged upper abdomen. Soft tissues appear unremarkable. Multilevel endplate spurring about the spine. IMPRESSION: 1. No acute intrathoracic abnormality identified, specifically no acute aortic pathology or evidence of pulmonary thromboembolic disease. 2. No lobar airspace consolidation to suggest pneumonia. The above report was generated using voice recognition software. It may contain grammatical, syntax or spelling errors. Electronically signed by: Sean Black M.D. 12/27/2017 4:23 PM Dictated Date/Time: 12/27/2017 4:17 PM
[2017-12-27] MEDS ORDERED: AZITHROMYCIN 250 MG TAB PO STA (16:54)
[2017-12-27] MEDS ORDERED: AZIT250T PO (17:07)
[2017-12-27] MEDS ORDERED: CLOP1TAB54 PO (17:20)
[2017-12-27 17:30] VITALS: BP 107/85; PULSE 86; O2SAT 93
[2017-12-27] MEDS ORDERED: LISI40TA PO (18:07)
[2017-12-27] MEDS ORDERED: TRIA37.5 PO (18:14)
--- NOTE | 2017-12-31 08:18 | DIAGNOSTIC IMAGING REPORT ---
CHEST ONE VIEW PORTABLE CLINICAL HISTORY: Respiratory distress COMPARISON STUDY: 07/02/2017 FINDINGS: The heart is normal in size. Diffuse interstitial prominence, likely secondary to technical factors given the patient's large body habitus. There is no lobar consolidation. There is no overt failure. There are no pleural effusions.[ IMPRESSION: 1. Interstitial prominence, likely related to technical factors given the patient's large body habitus 2. No evidence of focal pulmonary consolidation Electronically signed by: Collin Zapata M.D. 12/27/2017 2:20 PM Dictated Date/Time: 12/27/2017 2:18 PM
== END 2017-12-27 17:45 | disposition home or self-care (01) ==
LOC: EDBD 13:30 → C.EDB 13:32
DX: J40 Bronchitis, not specified as acute or chronic (principal); Z86.73 Personal history of transient ischemic attack (TIA), and cerebral infarction without residual deficits; J44.9 Chronic obstructive pulmonary disease, unspecified; J45.909 Unspecified asthma, uncomplicated; E11.9 Type 2 diabetes mellitus without complications; I10 Essential (primary) hypertension; Z87.442 Personal history of urinary calculi; Z83.3 Family history of diabetes mellitus; Z80.9 Family history of malignant neoplasm, unspecified; Z82.49 Family history of ischemic heart disease and other diseases of the circulatory system; F17.210 Nicotine dependence, cigarettes, uncomplicated; Z79.82 Long term (current) use of aspirin; Z79.02 Long term (current) use of antithrombotics/antiplatelets; Z79.899 Other long term (current) drug therapy; Z88.1 Allergy status to other antibiotic agents; Z88.2 Allergy status to sulfonamides; Z88.8 Allergy status to other drugs, medicaments and biological substances

== ENCOUNTER 2018-05-03 15:21 | Emergency (ER) | payer OTHER ==
[~2018-05-03 15:21] MED LIST changes: -ALBUAER19 INH; +AMLO5TAB3 PO; -AMT24 PO; +AZIT250T PO; +BUPR-79 PO; -BUPR75TA20 PO; +BUSP15TA70 PO; +CLOP1TAB54 PO; -DOCU100C31 PO; -FURO-85 PO; -GABA-1220 PO; -METO25TA56 PO; +METO50TA16 PO; -MORP15TA19 PO; +MRPSR15 PO; +NORE5TAB5 PO; +NRN600 PO; -POLY335019 PO; +TRIA37.5 PO; +VNTHFA/IN INH
[2018-05-03 15:32] VITALS: TEMP 37.1
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
[2018-05-03 17:53] VITALS: BP 140/85; PULSE 87; O2SAT 95
== END 2018-05-03 17:55 | disposition home or self-care (01) ==
LOC: EDBD 15:21 → C.EDD 15:23
DX: T23.112A Burn of first degree of left thumb (nail), initial encounter (principal); X10.2XXA Contact with fats and cooking oils, initial encounter; Y92.090 Kitchen in other non-institutional residence as the place of occurrence of the external cause; E11.9 Type 2 diabetes mellitus without complications; Z86.73 Personal history of transient ischemic attack (TIA), and cerebral infarction without residual deficits; E78.5 Hyperlipidemia, unspecified; F17.210 Nicotine dependence, cigarettes, uncomplicated; Z79.82 Long term (current) use of aspirin; Z79.02 Long term (current) use of antithrombotics/antiplatelets; Z83.3 Family history of diabetes mellitus; Z80.9 Family history of malignant neoplasm, unspecified; Z82.49 Family history of ischemic heart disease and other diseases of the circulatory system

== ENCOUNTER 2018-11-14 15:05 | Inpatient (IN) ==
[2018-11-14] MEDS ORDERED: ALBUTEROL 0.083% NEBU SOLN 3 ML VIAL NEB STA (16:00)
[2018-11-14 16:13] LABS: Basophils # (auto) 0.07 K/uL (0-0.2); Basophils % (auto) 0.9 %; Eosinophils % (auto) 1.3 %; Hematocrit (blood only) 46.3 % (37-47); Hemoglobin 15.8 g/dL (12.0-16.0); Immature Granulocytes # (auto) 0.33 K/uL (0.00-0.02); Immature Granulocytes % (auto) 4.3 %; Lymphocytes # (auto) 1.45 K/uL (1.2-3.4); Lymphocytes % (auto) 18.9 %; Mean Corpuscular Hgb Conc 34.1 g/dL (32-36); Mean Corpuscular Volume 81.5 fL (80-100); Mean Platelet Volume 10.7 fL (7.4-10.4); Monocytes # (auto) 0.73 K/uL (0.11-0.59); Monocytes % (auto) 9.5 %; Neutrophils # (auto) 5.01 K/uL (1.4-6.5); Neutrophils % (auto) 65.1 %; Platelet Count 274 K/uL (130-400); RDW Coefficient of Variation 16.5 % (11.5-14.5); RDW Standard Deviation 48.8 fL (36.4-46.3); Red Blood Count 5.68 M/uL (4.2-5.4); White Blood Count 7.69 K/uL (4.8-10.8)
--- NOTE | 2018-11-14 16:29 | XRay Report ---
XR chest 1V portable CLINICAL HISTORY: sob dyspnea COMPARISON STUDY: 10/24/2017 FINDINGS: The bones soft tissues and hemidiaphragms are normal. The cardiomediastinal silhouette is n ormal. The lungs are clear. The pulmonary vasculature is normal. Mild stable cardiomegaly. IMPRESSION: No acute process. Chronic changes as noted. The above report was generated using voice recognition software. It may contain grammatical, syntax or spelling errors. Electronically signed by: Deondre Trejo M.D. 11/14/2018 4:27 PM
[2018-11-14 16:42] LABS: Albumin Globulin Ratio 0.5 (0.9-2); Albumin Level 2.6 gm/dl (3.4-5.0); BUN Creatinine Ratio 29.2 (10-20); Bilirubin,Total 0.4 mg/dl (0.2-1); Calcium 13.6 mg/dl (8.5-10.1); Creatinine Clr Calc Pharmacy 30.9 ml/min; Est GFR (African American) 26.5; Est GFR (Non-African American) 22.9; Globulin 5.7 gm/dl (2.5-4.0); Potassium 5.1 mmol/L (3.5-5.1); Total Protein 8.3 gm/dl (6.4-8.2)
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
[2018-11-14] MEDS ORDERED: SODIUM CHLORIDE 0.9% 1000ML 1,000 ML IV ONE (17:17)
--- NOTE | 2018-11-14 17:17 | CT Scan Report ---
CT SCAN OF THE ABDOMEN AND PELVIS WITHOUT IV CONTRAST CLINICAL HISTORY: Fall. COMPARISON STUDY: Abdominal CT dated 10/24/2018 and 02/12/2012. TECHNIQUE: CT scan of the abdomen and pelvis is performed from the lung bases to the proximal femora. Images are reviewed in the axial, sagittal, and coronal planes. IV contrast was not administered for this examination as per the referring clinician. Note that the examination was performed in suboptim al fashion without IV contrast. A dose lowering technique was utilized adhering to the principles of ALARA. CT DOSE: 1332.78 mGy.cm FINDINGS: Lung bases: The heart is normal in size noting a small to moderate pericardial effusion. There is bib asilar scarring/atelectasis. No airspace consolidation or pleural effusion is identified. A 3 mm pleu ral-based nodule at the right lung base is again seen on image #37. Liver: The unenhanced liver is normal in size, contour, and attenuation. There is no intrahepatic william iary ductal dilatation. There is a 5.4 cm low-attenuation lesion identified within the right hepatic lobe seen on image #98. Gallbladder: Unremarkable. Spleen: Normal in size and attenuation. Pancreas: The unenhanced pancreas is grossly unremarkable. Adrenal glands: Unremarkable. Kidneys: The unenhanced kidneys are normal in size and without hydronephrosis. Cortical scarring is n oted in the right kidney. There are punctate nonobstructing right renal calculi. No left or a calculi are identified. There is no evidence of contour deforming renal mass lesion. Abdominal vasculature: The abdominal aorta is normal in course and caliber noting mild to moderate at herosclerotic calcification. Bowel: Residual enteric contrast is noted in the colon. No bowel obstruction is identified. The appen hany is well-visualized and normal, and filled with enteric contrast. Peritoneum: There is laxity of the ventral abdominal wall with protrusion of abdominal contents. Ther e is no intraperitoneal free air or abdominal ascites. There is an indeterminant 1.4 cm peritoneal no dule anterior to the left lobe of liver seen on image #115. A 12 mm peritoneal nodule seen within the anterior pelvis on image #355. Additional smaller peritoneal and retroperitoneal nodules are identif ied on images #66, #97, #220, and #358. Lymphadenopathy: None. Pelvic viscera: Evaluation of the pelvis is read by streak artifact from retained enteric contrast in the colon. The bladder bladder is normal as visualized. An exophytic fibroid versus enlarged right o vary as seen on image #322 and measures 4.3 cm. Skeletal structures: The skeletal structures are osteopenic. Mild lumbosacral spondylosis is observed . Sclerotic change is noted in the sacroiliac joints and symphysis pubis. Subtle osteolytic lesions i dentified within the mirta bilaterally (images #229 and #228). A subtle osteolytic lesion is also seen in the body of L3 on image #169, and in the spinous process of T10 on image #42. A lesion the right femoral head is seen on image #337. There are chronic left-sided rib fractures. IMPRESSION: 1. Suboptimal examination without IV contrast. 2. There is no evidence of solid organ injury in the abdomen or pelvis on this unenhanced examination . 3. There is an enlarging right hepatic lobe mass lesion, as well as numerous enlarging peritoneal nod ules as compared to 10/24/2018. These are new from 02/12/2012 and highly concerning for neoplasm. 4. There are several subtle osteolytic bone lesions. These are also highly concerning for metastatic disease. 5. Small nonobstructing right renal calculi. 6. Small to moderate pericardial effusion, unchanged from 10/24/2018. 7. There is an enlarged right ovary versus exophytic uterine fibroid. Nonemergent follow-up with pelv ic ultrasound is recommended. 8. Additional findings as above. Electronically signed by: Tony Khan M.D. 11/14/2018 5:15 PM
--- NOTE | 2018-11-14 17:46 | History & Physical Report ---
Date of Service November 14, 2018 History of Present Illness Primary Care Provider: Brandee Guadarrama MD Allergies Allergy/AdvReac Type Severity Reaction Status Date / Time aripiprazole Allergy Intermediate confused Verified 11/14/18 16:22 cephalexin Allergy Unknown HIVES Unverified 11/14/18 16:22 Sulfa (Sulfonamide Allergy Unknown . Verified 11/14/18 16:22 Antibiotics) Home Medications Home Medications Medication Instructions Recorded Confirmed Type albuterol sulfate [ProAir HFA] 2 puff INHALATION Q6H PRN 10/24/18 11/14/18 History amlodipine 5 mg PO DAILY 10/24/18 11/14/18 History aspirin [Aspirin Low Dose] 81 mg PO DAILY 10/24/18 11/14/18 History atorvastatin 80 mg PO DAILY 10/24/18 11/14/18 History blood glucose control, normal 10/24/18 11/14/18 History [OneTouch Ultra Control] bupropion HCl 75 mg PO TID 10/24/18 11/14/18 History clopidogrel 75 mg PO DAILY 10/24/18 11/14/18 History diclofenac sodium 75 mg PO BID 10/24/18 11/14/18 History docusate sodium [Colace] 100 mg PO BID 10/24/18 11/14/18 History duloxetine 60 mg PO DAILY 10/24/18 11/14/18 History fluticasone furoate [Arnuity 1 inh INHALATION DAILY 10/24/18 11/14/18 History Ellipta] furosemide 20 mg PO DAILY PRN 10/24/18 11/14/18 History gabapentin 800 mg PO TID 10/24/18 11/14/18 History glipizide 10 mg PO BID 10/24/18 11/14/18 History ipratropium bromide 2 spray INTRANASAL BID PRN 10/24/18 11/14/18 History lamotrigine 150 mg PO BID 10/24/18 11/14/18 History levothyroxine 25 mcg PO DAILY 10/24/18 11/14/18 History lidocaine [Aspercreme (lidocaine)] 1 patch TOPICAL BID 10/24/18 11/14/18 History lubiprostone [Amitiza] 24 mcg PO BID 10/24/18 11/14/18 History metoprolol tartrate 50 mg PO BID 10/24/18 11/14/18 History pioglitazone 45 mg PO DAILY 10/24/18 11/14/18 History polyethylene glycol 3350 [Miralax] 17 g PO BID 10/24/18 11/14/18 History psyllium husk [Metamucil] 0.52 g PO DAILY 10/24/18 11/14/18 History sitagliptin [Januvia] 100 mg PO DAILY 10/24/18 11/14/18 History tolterodine 2 mg PO DAILY 10/24/18 11/14/18 History umeclidinium-vilanterol [Anoro 1 inh INHALATION DAILY 10/24/18 11/14/18 History Ellipta] B complex-vitamin C-folic acid 1 tab PO DAILY 11/14/18 11/14/18 History buspirone 15 mg PO BID 11/14/18 11/14/18 History hydrocodone-acetaminophen 1 tab PO TID PRN 11/14/18 11/14/18 History lisinopril 20 mg PO DAILY 11/14/18 11/14/18 History morphine 15 mg PO TID PRN 11/14/18 11/14/18 History norethindrone acetate 5 mg PO BID 11/14/18 11/14/18 History triamterene-hydrochlorothiazid 1 tab PO DAILY 11/14/18 11/14/18 History Past Med/Surg History Medical History Chronic back pain (Chronic) History of TIA (transient ischemic attack) (Chronic) History of asthma (Chronic) History of kidney stones (Chronic) History of diabetes mellitus (Chronic) History of hypertension (Chronic) Social History Feels Safe at Home: Yes Smoking Status: Heavy tobacco smoker Preferred Language: Tajik Review of Systems Pertinent positives and negatives reviewed in HPI--all others negative Physical Exam 2 Vital Signs (Past 24 Hours): Last Vital Signs Temp 37.1 C 11/14/18 15:29 Pulse 122 H 11/14/18 16:42 Resp 20 11/14/18 16:42 BP 99/69 L 11/14/18 16:42 Pulse Ox 95 11/14/18 16:42 Results & Data Diagnostic Findings CT AP: 1. Suboptimal examination without IV contrast. 2. There is no evidence of solid organ injury in the abdomen or pelvis on this unenhanced examination. 3. There is an enlarging right hepatic lobe mass lesion, as well as numerous enlarging peritoneal nodules as compared to 10/24/2018. These are new from 2011 and highly concerning for neoplasm. 4. There are several subtle osteolytic bone lesions. These are also highly concerning for metastatic disease. 5. Small nonobstructing right renal calculi. 6. Small to moderate pericardial effusion, unchanged from 10/24/2018. 7. There is an enlarged right ovary versus exophytic uterine fibroid. Nonemergent follow-up with pelvic ultrasound is recommended. 8. Additional findings as above. CT L spine: DJD CXR: neg for acute
--- NOTE | 2018-11-14 18:51 | History & Physical Report ---
Date of Service November 14, 2018 Assessment & Plan (1) Abnormal CT of the abdomen: As noted Concern for mets with lung primary given above Hem/onc c/s pending (2) ARF (acute renal failure): Noted as 2.0 on 10/24 Monitor s/p IVF (3) Hypercalcemia: Concerning in the setting of xochilt mets Monitor on IVF (4) Swallowing difficulty: Recent barium swallow reported as neg Speech eval pending (5) Chronic back pain: Now worse s/p fall Continue home meds ?? soft tissue injury vs mets (6) HTN (hypertension): continue home meds Monitor with hold parameters given mildly hypoTN in the ED (7) Fall: Related to hypoglycemia Monitor (8) Depression: continue home meds as able Pt has not been taking due to inability to swallow (9) DM type 2 (diabetes mellitus, type 2): Has been unable to take solid PO and with weight loss Likely hypoglycemia was related to this A1c pending SSI PRN Holding PO meds until further assessment of needs (10) CVA (cerebral vascular accident): Aspirin/plavix (11) Anxiety: continue home meds as able Pt has not been taking due to inability to swallow (12) Lung nodule: Seen by Dr. Angulo but unable to have bx C/S pending (13) Fibroid: Recs for non-emergent US f/u (14) Tobacco use disorder: Declines need for nicotine patch (15) ROSIBEL (obstructive sleep apnea): Noncompliant with CPAP, does use HS O2 (16) Hypothyroid: continue home meds (17) Hyperlipidemia: continue home meds (18) DVT prophylaxis: SCDs Heparin for DVT proph History of Present Illness Primary Care Provider: Brandee Guadarrama MD 48 y/o F c/o worsening LBP. Pt has h/o LBP that she takes pain medication for. On Sunday, pt fell at home with LOC. EMS came to the home and her BS was found to be 30. She felt fine once this was improved and declined further care at that time. Since then, she has had worsening b/l lumbar spine pain. No radiation. It was noted at that time that pt's glucometer was not working. Her daughter got her a new one and had been monitoring. He BS were in the low 100s since then. Pt states that she has not been eating much recently due to swallowing issues. She can swallow fluids, but not solids. Daughter states that since the hypoglycemia issue on Sunday, they have been working with [facility] and her BS have been better. Pt states that she has lost a lot of weight with the swallowing issues. She has not been taking most of her medications due to this as well. She has been taking her DM, thyroid, HTN, aspirin/plavix, and pain meds, but none of her psych meds or lasix. Pt states she had an outpt barium swallow that was reported to her as negative. Pt was found to have a lung mass last year. She was supposed to have a bx with Dr. Angulo, however she arrived on day of procedure and was unable to have it due to not being told she was to stop her aspirin/plavix. It was rescheduled but pt had other health issues and so this has not been done. Pt denies fever, chest pain, abd pain, n/v/c/d, LE pain or swelling. Pt states she has intermittent SOB and this is at its baseline. Allergies Allergy/AdvReac Type Severity Reaction Status Date / Time aripiprazole Allergy Intermediate confused Verified 11/14/18 16:22 cephalexin Allergy Unknown HIVES Unverified 11/14/18 16:22 Sulfa (Sulfonamide Allergy Unknown . Verified 11/14/18 16:22 Antibiotics) Home Medications Home Medications Medication Instructions Recorded Confirmed Type albuterol sulfate [ProAir HFA] 2 puff INHALATION Q6H PRN 10/24/18 11/14/18 History amlodipine 5 mg PO DAILY 10/24/18 11/14/18 History aspirin [Aspirin Low Dose] 81 mg PO DAILY 10/24/18 11/14/18 History atorvastatin 80 mg PO DAILY 10/24/18 11/14/18 History blood glucose control, normal 10/24/18 11/14/18 History [OneTouch Ultra Control] bupropion HCl 75 mg PO TID 10/24/18 11/14/18 History clopidogrel 75 mg PO DAILY 10/24/18 11/14/18 History diclofenac sodium 75 mg PO BID 10/24/18 11/14/18 History docusate sodium [Colace] 100 mg PO BID 10/24/18 11/14/18 History duloxetine 60 mg PO DAILY 10/24/18 11/14/18 History fluticasone furoate [Arnuity 1 inh INHALATION DAILY 10/24/18 11/14/18 History Ellipta] furosemide 20 mg PO DAILY PRN 10/24/18 11/14/18 History gabapentin 800 mg PO TID 10/24/18 11/14/18 History glipizide 10 mg PO BID 10/24/18 11/14/18 History ipratropium bromide 2 spray INTRANASAL BID PRN 10/24/18 11/14/18 History lamotrigine 150 mg PO BID 10/24/18 11/14/18 History levothyroxine 25 mcg PO DAILY 10/24/18 11/14/18 History lidocaine [Aspercreme (lidocaine)] 1 patch TOPICAL BID 10/24/18 11/14/18 History lubiprostone [Amitiza] 24 mcg PO BID 10/24/18 11/14/18 History metoprolol tartrate 50 mg PO BID 10/24/18 11/14/18 History pioglitazone 45 mg PO DAILY 10/24/18 11/14/18 History polyethylene glycol 3350 [Miralax] 17 g PO BID 10/24/18 11/14/18 History psyllium husk [Metamucil] 0.52 g PO DAILY 10/24/18 11/14/18 History sitagliptin [Januvia] 100 mg PO DAILY 10/24/18 11/14/18 History tolterodine 2 mg PO DAILY 10/24/18 11/14/18 History umeclidinium-vilanterol [Anoro 1 inh INHALATION DAILY 10/24/18 11/14/18 History Ellipta] B complex-vitamin C-folic acid 1 tab PO DAILY 11/14/18 11/14/18 History buspirone 15 mg PO BID 11/14/18 11/14/18 History hydrocodone-acetaminophen 1 tab PO TID PRN 11/14/18 11/14/18 History lisinopril 20 mg PO DAILY 11/14/18 11/14/18 History morphine 15 mg PO TID PRN 11/14/18 11/14/18 History norethindrone acetate 5 mg PO BID 11/14/18 11/14/18 History triamterene-hydrochlorothiazid 1 tab PO DAILY 11/14/18 11/14/18 History Past Med/Surg History Medical History Chronic back pain (Chronic) History of TIA (transient ischemic attack) (Chronic) History of asthma (Chronic) History of kidney stones (Chronic) History of diabetes mellitus (Chronic) History of hypertension (Chronic) Family History Mother Heart attack Social History Feels Safe at Home: Yes Smoking Status: Heavy tobacco smoker Tobacco Type: cigarettes Cigarettes per Day: 20 Hx Alcohol Use: No Hx Substance Use: No Preferred Language: Nigerian Review of Systems Pertinent positives and negatives reviewed in HPI--all others negative Physical Exam 2 Vital Signs (Past 24 Hours): Last Vital Signs Temp 37.1 C 11/14/18 15:29 Pulse 117 H 11/14/18 17:58 Resp 20 11/14/18 17:58 BP 131/94 11/14/18 17:58 Pulse Ox 94 11/14/18 17:58 Constitutional: WD/WN, vitals as above + obese Eyes: normal visual damon by confrontation and + anicteric sclerae Neck: normal visual inspection and trachea midline Respiratory: normal respiratory effort, lungs clear to auscultation Cardiovascular: Rate/Rhythm: regular rate and regular rhythm Gastrointestinal (Abdomen): Inspection/Auscultation: abdomen not distended Percussion/Palpation: abdomen soft; abdomen nontender Musculoskeletal: Head/Neck/Chest: normocephalic and head atraumatic negative for edema, peripheral pulses intact Skin: no rashes, warm and dry Neurologic: awake; not confused Speech / Cognition: normal speech Psychiatric: A+Ox3, euthymic affect Results & Data Diagnostic Findings CT AP: 1. Suboptimal examination without IV contrast. 2. There is no evidence of solid organ injury in the abdomen or pelvis on this unenhanced examination. 3. There is an enlarging right hepatic lobe mass lesion, as well as numerous enlarging peritoneal nodules as compared to 10/24/2018. These are new from 2011 and highly concerning for neoplasm. 4. There are several subtle osteolytic bone lesions. These are also highly concerning for metastatic disease. 5. Small nonobstructing right renal calculi. 6. Small to moderate pericardial effusion, unchanged from 10/24/2018. 7. There is an enlarged right ovary versus exophytic uterine fibroid. Nonemergent follow-up with pelvic ultrasound is recommended. 8. Additional findings as above. CT lumbar spine: DJD CXR: neg for acute ECG Rhythm: sinus tachycardia Code Status & VTE Plan Code Status Full cardiac code, DNI VTE Prophylaxis Plan VTE Prophylaxis will be ordered: Yes
[2018-11-14] MEDS ORDERED: GLUCOSE 40% GEL 15 GM TUBE PO PRN (20:29)
[2018-11-14] MEDS ORDERED: FUROSEMIDE 20 MG TAB PO PRN (20:29)
[2018-11-14] MEDS ORDERED: MAGNESIUM HYDROXIDE SUSP 30 ML UDC PO PRN (20:29)
[2018-11-14] MEDS ORDERED: CARBOHYDRATES FOR HYPOGLYCEMIA PO PRN (20:29)
[2018-11-14] MEDS ORDERED: GLUCAGON FOR INJ 1 MG VIAL SQ PRN (20:29)
[2018-11-14] MEDS ORDERED: MoRPHine SULFATE CR 15 MG TABCR PO PRN (20:29)
[2018-11-14] MEDS ORDERED: DEXTROSE 50% 50 ML SYRINGE IV PRN (20:29)
[2018-11-14] MEDS ORDERED: GLUCOSE 10 TABS/TUBE PO PRN (20:29)
[2018-11-14 20:54] LABS: Appearance Urine Cloudy (Clear); Bacteria Urine Automated 4+ (Negative); Bilirubin Urine Negative (Negative); Color Urine Yellow; Epithelial Cell Urine Auto >30 /lpf (0-5); Glucose Urine UA Negative (Negative); Ketones Urine Negative (Negative); Leukocyte Esterase Urine 2+ (Negative); Nitrite Urine Positive (Negative); Protein Urine Negative (Negative); Specific Gravity Urine 1.016 (1.000-1.030); Urobilinogen Urine Negative (Negative); WBC Urine Automated >30 /hpf (0-5)
--- NOTE | 2018-11-14 20:56 | Emergency Department Note ---
Entered by Km Andrew acting as a scribe for Brady Clements MD History of Present Illness General Chief complaint: Back Injury/Pain Time Seen by Provider: 11/14/18 15:46 Source: patient and family History of Present Illness Onset (ago): week(s) (past few) Location: back and lower extremity (knees) Pain Consistency: + other (persistent back and knee pain) Quality: + other (failure to thrive, worsened back/knee pain after fall, hypoglycemia five days ago) Associated symptoms: + shortness of breath and + other (trouble swallowing, right ear pain; denies suicidal or homicidal ideation) The patient is a 48 year old female with a history of depression, diabetes and chronic back pain who presents to the Emergency Room with failure to thrive for the past few weeks. The patient reports that five days ago, she fell out of bed and was found to have a blood sugar of 38. She notes that she was not evaluated at that time, and her blood sugar carly to 128 after drinking BOOST. She reports that her lower back pain and knee pain have worsened since falling. She notes some shortness of breath, trouble swallowing, and right ear discomfort. She reports that she has been more depressed since the onset of her symptoms. She denies suicidal/homicidal ideation, hallucinations, numbness, bowel/bladder incontinence, cardiac history, or history of her blood sugar dropping low prior to five days ago. She states that she takes Plavix and baby aspirin for a history of stroke. She notes that she was taken off of morphine and hydrocodone last month due to insurance, but recently started again 1.5 weeks ago. She notes that she recently had a barium swallow at [facility] that was unremarkable. She states that she takes four medications for diabetes but does not take insulin. She notes that she is a smoker. She states that she lives with family. She denies a history of back surgery. She states that she uses nebulizers, inhalers, and supplemental oxygen at night. Home Medications Home Medications Medication Instructions Recorded Confirmed Type albuterol sulfate [ProAir HFA] 2 puff INHALATION Q6H PRN 10/24/18 11/14/18 History amlodipine 5 mg PO DAILY 10/24/18 11/14/18 History aspirin [Aspirin Low Dose] 81 mg PO DAILY 10/24/18 11/14/18 History atorvastatin 80 mg PO DAILY 10/24/18 11/14/18 History blood glucose control, normal 10/24/18 11/14/18 History [OneTouch Ultra Control] bupropion HCl 75 mg PO TID 10/24/18 11/14/18 History clopidogrel 75 mg PO DAILY 10/24/18 11/14/18 History diclofenac sodium 75 mg PO BID 10/24/18 11/14/18 History docusate sodium [Colace] 100 mg PO BID 10/24/18 11/14/18 History duloxetine 60 mg PO DAILY 10/24/18 11/14/18 History fluticasone furoate [Arnuity 1 inh INHALATION DAILY 10/24/18 11/14/18 History Ellipta] furosemide 20 mg PO DAILY PRN 10/24/18 11/14/18 History gabapentin 800 mg PO TID 10/24/18 11/14/18 History glipizide 10 mg PO BID 10/24/18 11/14/18 History ipratropium bromide 2 spray INTRANASAL BID PRN 10/24/18 11/14/18 History lamotrigine 150 mg PO BID 10/24/18 11/14/18 History levothyroxine 25 mcg PO DAILY 10/24/18 11/14/18 History lidocaine [Aspercreme (lidocaine)] 1 patch TOPICAL BID 10/24/18 11/14/18 History lubiprostone [Amitiza] 24 mcg PO BID 10/24/18 11/14/18 History metoprolol tartrate 50 mg PO BID 10/24/18 11/14/18 History pioglitazone 45 mg PO DAILY 10/24/18 11/14/18 History polyethylene glycol 3350 [Miralax] 17 g PO BID 10/24/18 11/14/18 History psyllium husk [Metamucil] 0.52 g PO DAILY 10/24/18 11/14/18 History sitagliptin [Januvia] 100 mg PO DAILY 10/24/18 11/14/18 History tolterodine 2 mg PO DAILY 10/24/18 11/14/18 History umeclidinium-vilanterol [Anoro 1 inh INHALATION DAILY 10/24/18 11/14/18 History Ellipta] B complex-vitamin C-folic acid 1 tab PO DAILY 11/14/18 11/14/18 History buspirone 15 mg PO BID 11/14/18 11/14/18 History hydrocodone-acetaminophen 1 tab PO TID PRN 11/14/18 11/14/18 History lisinopril 20 mg PO DAILY 11/14/18 11/14/18 History morphine 15 mg PO TID PRN 11/14/18 11/14/18 History norethindrone acetate 5 mg PO BID 11/14/18 11/14/18 History triamterene-hydrochlorothiazid 1 tab PO DAILY 11/14/18 11/14/18 History Allergies Allergy/AdvReac Type Severity Reaction Status Date / Time aripiprazole Allergy Intermediate confused Verified 11/14/18 16:22 cephalexin Allergy Unknown HIVES Unverified 11/14/18 16:22 Sulfa (Sulfonamide Allergy Unknown . Verified 11/14/18 16:22 Antibiotics) Past Med/Surg History Medical History Chronic back pain (Chronic) History of TIA (transient ischemic attack) (Chronic) History of asthma (Chronic) History of kidney stones (Chronic) History of diabetes mellitus (Chronic) History of hypertension (Chronic) Family History Mother Heart attack Social History Feels Safe at Home: Yes Smoking Status: Heavy tobacco smoker Tobacco Type: cigarettes Cigarettes per Day: 20 Hx Alcohol Use: No Hx Substance Use: No Preferred Language: Yakut Review of Systems See HPI for pertinent positives & negatives. and A total of 10 systems reviewed and were otherwise negative Physical Exam Vital Signs Vital Signs - 24 hr 11/14/18 15:29 11/14/18 16:12 11/14/18 16:42 Temperature 37.1 C Temperature Source Oral Sepsis Recent Fever Within 48 Hours No Sepsis New/Unexplained Change in Mental Status No Sepsis Action Taken by Nursing No Action Required Pulse Rate 128 H Pulse Rate [Apical] 122 H Respiratory Rate 22 20 Respiratory Effort / Characteristics Labored Blood Pressure 106/88 Blood Pressure [Right Arm] 99/69 L Blood Pressure Mean 94 Blood Pressure Mean [Right Arm] 79 Blood Pressure Position Sitting Blood Pressure Position [Right Arm] Pulse Oximetry 93 91 95 Oxygen Delivery Method Room Air Room Air Room Air 11/14/18 17:58 11/14/18 19:22 11/14/18 20:07 Temperature Temperature Source Sepsis Recent Fever Within 48 Hours Sepsis New/Unexplained Change in Mental Status Sepsis Action Taken by Nursing Pulse Rate Pulse Rate [Apical] 117 H 117 H Respiratory Rate 20 Respiratory Effort / Characteristics Blood Pressure Blood Pressure [Right Arm] 131/94 115/85 Blood Pressure Mean Blood Pressure Mean [Right Arm] 106 95 Blood Pressure Position Blood Pressure Position [Right Arm] Sitting Pulse Oximetry 94 95 95 Oxygen Delivery Method Room Air Room Air Room Air General: Chronically-ill appearing middle age female in no acute distress. HEENT: Normal cephalic atraumatic. Pupils are equal round and reactive to light. Extraocular movements are intact. Oropharynx is pink with moist mucous membranes. No swelling of the mouth lips or tongue. Neck: Supple with a midline trachea. No meningeal signs or stiffness, no JVD or bruits. No Stridor. Chest: Clear to auscultation bilaterally. No wheezes or rhonchi. No increased work of breathing. Heart: regular rate and rhythm. Abdomen: Soft nontender, nondistended without rebound guarding or rigidity. Extremities: No cyanosis clubbing or edema. No calf tenderness or assymetry Spine/Back. Non tender to palpation. No CVA tenderness Skin: Good turgor without rashes. Neurologic exam: Cranial nerves two through 12 are intact. Motor and sensation are intact and symmetrical throughout. Psychiatric: Normal thought process. Denies suicidal or homicidal ideation. Course 1547: Past medical records reviewed. The patient was evaluated in room A5, and a complete history and physical examination were performed. 1720: I updated the patient on results. She is agreeable to hospitalization. 1751: I consulted Dr. Talley [facility] Hospitalist. She will reevaluate the patient for hospitalization. Consultations Consultation #1: I consulted Dr. Talley [facility] Hospitalist. She will reevaluate the patient for hospitalization. Time: 17:51 Administered Medications Discontinued Medications Albuterol (Ventolin 0.083% 2.5mg/3ml) 2.5 mg NEB NOW STA Stop: 11/14/18 16:01 Last Admin: 11/14/18 16:25 Dose: 2.5 mg Sodium Chloride (Nss 1000ml) 1,000 mls @ 999 mls/hr IV .Q1H1M ONE Stop: 11/14/18 18:17 Last Infusion: 11/14/18 19:26 Dose: 0 mls/hr Admin: 11/14/18 17:26 Dose: 999 mls/hr Medical Decision Making Differential Diagnosis Differential diagnosis: trauma, electrolyte or metabolic abnormalities, cardiac disease, toxicological, psychological Medical Records Attestation: I reviewed the patient's medical records. Home Medications Current Medication List: was personally reviewed by me Laboratory Data Attestation: I reviewed the patient's lab results. Result diagrams: 11/14/18 15:42 11/14/18 15:42 Lab Results 11/14/18 11/14/18 11/14/18 Range/Units 15:40 15:42 15:42 WBC 7.69 (4.8-10.8) K/uL RBC 5.68 H (4.2-5.4) M/uL Hgb 15.8 (12.0-16.0) g/dL Hct 46.3 (37-47) % MCV 81.5 (80-100) fL MCH 27.8 (25-34) pg MCHC 34.1 (32-36) g/dL RDW Std Deviation 48.8 H (36.4-46.3) fL RDW Coeff of Rayray 16.5 H (11.5-14.5) % Plt Count 274 (130-400) K/uL MPV 10.7 H (7.4-10.4) fL Immature Gran % (Auto) 4.3 % Neut % (Auto) 65.1 % Lymph % (Auto) 18.9 % [place] % (Auto) 9.5 % Eos % (Auto) 1.3 % Baso % (Auto) 0.9 % Immature Gran # (Auto) 0.33 H (0.00-0.02) K/uL Neut # (Auto) 5.01 (1.4-6.5) K/uL Lymph # (Auto) 1.45 (1.2-3.4) K/uL [place] # (Auto) 0.73 H (0.11-0.59) K/uL Eos # (Auto) 0.10 (0-0.5) K/uL Baso # (Auto) 0.07 (0-0.2) K/uL Sodium 127 L (136-145) mmol/L Potassium 5.1 (3.5-5.1) mmol/L Chloride 95 L (98-107) mmol/L Carbon Dioxide 25 (21-32) mmol/L Anion Gap 7.0 (3-11) BUN 71 H (7-18) mg/dl Creatinine 2.42 H (0.6-1.2) mg/dl Est Cr Clr Drug Dosing 30.9 ml/min Est GFR ( Amer) 26.5 Est GFR (Non-Af Amer) 22.9 BUN/Creatinine Ratio 29.2 H (10-20) Glucose 126 H (70-99) mg/dl POC Glucose 128 H (70-99) Calcium 13.6 H* (8.5-10.1) mg/dl Total Bilirubin 0.4 (0.2-1) mg/dl AST 49 H (15-37) U/L ALT 27 (12-78) U/L Alkaline Phosphatase 75 (45-117) U/L Total Protein 8.3 H (6.4-8.2) gm/dl Albumin 2.6 L (3.4-5.0) gm/dl Globulin 5.7 H (2.5-4.0) gm/dl Albumin/Globulin Ratio 0.5 L (0.9-2) Lipase 1057 H (73-393) U/L 11/14/18 Range/Units 20:32 WBC (4.8-10.8) K/uL RBC (4.2-5.4) M/uL Hgb (12.0-16.0) g/dL Hct (37-47) % MCV (80-100) fL MCH (25-34) pg MCHC (32-36) g/dL RDW Std Deviation (36.4-46.3) fL RDW Coeff of Rayray (11.5-14.5) % Plt Count (130-400) K/uL MPV (7.4-10.4) fL Immature Gran % (Auto) % Neut % (Auto) % Lymph % (Auto) % [place] % (Auto) % Eos % (Auto) % Baso % (Auto) % Immature Gran # (Auto) (0.00-0.02) K/uL Neut # (Auto) (1.4-6.5) K/uL Lymph # (Auto) (1.2-3.4) K/uL [place] # (Auto) (0.11-0.59) K/uL Eos # (Auto) (0-0.5) K/uL Baso # (Auto) (0-0.2) K/uL Sodium (136-145) mmol/L Potassium (3.5-5.1) mmol/L Chloride (98-107) mmol/L Carbon Dioxide (21-32) mmol/L Anion Gap (3-11) BUN (7-18) mg/dl Creatinine (0.6-1.2) mg/dl Est Cr Clr Drug Dosing ml/min Est GFR ( Amer) Est GFR (Non-Af Amer) BUN/Creatinine Ratio (10-20) Glucose (70-99) mg/dl POC Glucose 85 (70-99) Calcium (8.5-10.1) mg/dl Total Bilirubin (0.2-1) mg/dl AST (15-37) U/L ALT (12-78) U/L Alkaline Phosphatase (45-117) U/L Total Protein (6.4-8.2) gm/dl Albumin (3.4-5.0) gm/dl Globulin (2.5-4.0) gm/dl Albumin/Globulin Ratio (0.9-2) Lipase (73-393) U/L Imaging Data Radiologist's Impression: Radiology results as stated below per my review and the radiologist's interpretation: CT SCAN OF THE ABDOMEN AND PELVIS WITHOUT IV CONTRAST CLINICAL HISTORY: Fall. COMPARISON STUDY: Abdominal CT dated 10/24/2018 and 02/12/2012. TECHNIQUE: CT scan of the abdomen and pelvis is performed from the lung bases to the proximal femora. Images are reviewed in the axial, sagittal, and coronal planes. IV contrast was not administered for this examination as per the referring clinician. Note that the examination was performed in suboptimal fashion without IV contrast. A dose lowering technique was utilized adhering to the principles of ALARA. CT DOSE: 1332.78 mGy.cm FINDINGS: Lung bases: The heart is normal in size noting a small to moderate pericardial effusion. There is bibasilar scarring/atelectasis. No airspace consolidation or pleural effusion is identified. A 3 mm pleural-based nodule at the right lung base is again seen on image #37. Liver: The unenhanced liver is normal in size, contour, and attenuation. There is no intrahepatic biliary ductal dilatation. There is a 5.4 cm low-attenuation lesion identified within the right hepatic lobe seen on image #98. Gallbladder: Unremarkable. Spleen: Normal in size and attenuation. Pancreas: The unenhanced pancreas is grossly unremarkable. Adrenal glands: Unremarkable. Kidneys: The unenhanced kidneys are normal in size and without hydronephrosis. Cortical scarring is noted in the right kidney. There are punctate nonobstructing right renal calculi. No left or a calculi are identified. There is no evidence of contour deforming renal mass lesion. Abdominal vasculature: The abdominal aorta is normal in course and caliber noting mild to moderate atherosclerotic calcification. Bowel: Residual enteric contrast is noted in the colon. No bowel obstruction is identified. The appendix is well-visualized and normal, and filled with enteric contrast. Peritoneum: There is laxity of the ventral abdominal wall with protrusion of abdominal contents. There is no intraperitoneal free air or abdominal ascites. There is an indeterminant 1.4 cm peritoneal nodule anterior to the left lobe of liver seen on image #115. A 12 mm peritoneal nodule seen within the anterior pelvis on image #355. Additional smaller peritoneal and retroperitoneal nodules are identified on images #66, #97, #220, and #358. Lymphadenopathy: None. Pelvic viscera: Evaluation of the pelvis is read by streak artifact from retained enteric contrast in the colon. The bladder bladder is normal as visualized. An exophytic fibroid versus enlarged right ovary as seen on image # 322 and measures 4.3 cm. Skeletal structures: The skeletal structures are osteopenic. Mild lumbosacral spondylosis is observed. Sclerotic change is noted in the sacroiliac joints and symphysis pubis. Subtle osteolytic lesions identified within the mirta bilaterally (images #229 and #228). A subtle osteolytic lesion is also seen in the body of L3 on image #169, and in the spinous process of T10 on image #42. A lesion the right femoral head is seen on image #337. There are chronic left- sided rib fractures. IMPRESSION: 1. Suboptimal examination without IV contrast. 2. There is no evidence of solid organ injury in the abdomen or pelvis on this unenhanced examination. 3. There is an enlarging right hepatic lobe mass lesion, as well as numerous enlarging peritoneal nodules as compared to 10/24/2018. These are new from 2011 and highly concerning for neoplasm. 4. There are several subtle osteolytic bone lesions. These are also highly concerning for metastatic disease. 5. Small nonobstructing right renal calculi. 6. Small to moderate pericardial effusion, unchanged from 10/24/2018. 7. There is an enlarged right ovary versus exophytic uterine fibroid. Nonemergent follow-up with pelvic ultrasound is recommended. 8. Additional findings as above. Electronically signed by: Tony Khan M.D. 11/14/2018 5:15 PM XR chest 1V portable CLINICAL HISTORY: sob dyspnea COMPARISON STUDY: 10/24/2017 FINDINGS: The bones soft tissues and hemidiaphragms are normal. The cardiomediastinal silhouette is normal. The lungs are clear. The pulmonary vasculature is normal. Mild stable cardiomegaly. IMPRESSION: No acute process. Chronic changes as noted. The above report was generated using voice recognition software. It may contain grammatical, syntax or spelling errors. Electronically signed by: Deondre Trejo M.D. 11/14/2018 4:[address] lumbar spine wo con CT DOSE: HISTORY: Trauma. Pain. eval for trauma TECHNIQUE: Multiaxial CT images of the lumbar spine were performed and reformatted in the sagittal and coronal plane without the use of contrast. A dose lowering technique was utilized adhering to the principles of ALARA. COMPARISON: None. FINDINGS: No fractures. No subluxation. Paraspinal soft tissues are unremarkable. Degenerative disc changes throughout. Significant degenerative change posterior elements. No evidence for compression deformity. Moderate degenerative sclerosis superior sacroiliac joints. IMPRESSION: No fractures within the lumbar spine. Considerable degenerative change. The above report was generated using voice recognition software. It may contain grammatical, syntax or spelling errors. Electronically signed by: Deondre Trejo M.D. 11/14/2018 5:01 PM ECG Data Attestation: I personally reviewed and interpreted this ECG as follows: Indication: SOB/dyspnea Rate (beats per minute): 128 Rhythm: sinus tachycardia Findings: + other (inferior T-wave abnormalities; QTc is short compared to prior ECG); no ST elevation Comparison ECG Date: from (10/24/18) Change: the following changes noted (QTc is now short compared to prior) Blood Pressure Blood Pressure Findings: Normal blood pressure Blood Pressure Disposition: did not require urgent referral MDM Narrative This patient comes in after complaining of back pain. She fell this past Sunday and had some back issues. she has ongoing diabetes and apparently she was hypoglycemic at the time. she has been keeping her sugar up. Her psychiatric counter caser saw her today and was concerned about her back so she sent her here. The patient had pain in her legs but she has no neurologic deficits. She has normal bowel and bladder function and no dysuria or hematuria. She was initially significantly tachycardic in the 120s. IV access established was hydrated with IV normal saline. EKG, chest x-ray, and multiple blood testing was obtained. She was found to have significant electrolyte abnormalities. Her sodium is low at 127 and potassium is significant high at 13. Her BUN and creatinine are also elevated with a creatinine 2.7 which is new. She was just above to the last time it was checked. EKG shows sinus tachycardia QT interval is mildly shortened compared to old which could further go along with the hypercalcemia. She has no ischemic changes. Chest x-ray does not show any acute findings. I did a CAT scan of her abdomen and pelvis without contrast due to renal insufficiency/failure. She has a liver lesion which is concerning for malignancy and she also has some bony lesions which are concerning for metastases that could also be causing some of her pain. With her electrolyte abnormalities and as well as her other diagnoses I do think she needs to be admitted for further inpatient treatment and evaluation. He has a history of mental health issues however at this point she denies overdose or suicidal or homicidal ideations the seem to be stable. She was hydrated with IV fluids in the ER and will be admitted for these measures. Impression & Plan Renal failure, Hypercalcemia, Low back pain, Lesion of liver, Bony metastasis Discharge Plan Visit Data Chief Complaint: Back Injury/Pain ED Provider: Brady Clements Discharge Problem: Renal failure, Hypercalcemia, Low back pain, Lesion of liver, Bony metastasis Patient Disposition: Being Evaluated by Hospitalist Discharge Instructions Interventions: ED Discharge Assessment Last Done: 11/14/18 20:07 The scribe's documentation has been prepared under my direction and personally reviewed by me in its entirety. I confirm that the note above accurately reflects all work, treatment, procedures, and medical decision making performed by me.
[2018-11-14] MEDS ORDERED: ALBUTEROL HFA 8 GM INHALER INH PRN (21:15)
[2018-11-14] MEDS: SODIUM CHLORIDE 0.45 % 1,000 ML IV SCH (21:18)
[2018-11-14] MEDS ORDERED: IPRATROPIUM BROMIDE NASAL SPRAY 0.06% 15ML NAE PRN (21:45)
[2018-11-14] MEDS: DOCUSATE SODIUM 100 MG CAP PO SCH (21:52)
[2018-11-14] MEDS: BusPIRone 15 MG TAB PO SCH (21:53)
[2018-11-14] MEDS: GABAPENTIN 800 MG TAB PO SCH ×2 (21:53→22:32)
[2018-11-14] MEDS: DICLOFENAC SODIUM 75 MG TABCR PO SCH (21:53)
[2018-11-14] MEDS: INSULIN ASPART 100 UNITS/ML 3 ML PEN SC SCH (21:55)
[2018-11-14] MEDS: LUBIPROSTONE 8 MCG CAP PO SCH (22:06)
[2018-11-14] MEDS: NORETHINDRONE 5 MG TAB PO SCH (22:07)
[2018-11-14] MEDS: buPROPion HCl 75 MG TABLET PO SCH (22:07)
[2018-11-14] MEDS: METOPROLOL TARTRATE 50 MG TAB PO SCH (22:08)
[2018-11-14] MEDS: lamoTRIgine 100 MG TAB PO SCH (22:08)
[2018-11-14] MEDS: POLYETHYLENE (MIRALAX) 17 GM PACK PO SCH (22:09)
[2018-11-14 22:37] LABS: INR 1.1 (0.9-1.1); Prothrombin Time 11.4 Seconds (9.0-12.0)
[2018-11-15] MEDS: HEPARIN SOD 5,000 UNIT/0.5 ML VIAL SQ SCH ×4 (00:55→21:04)
[2018-11-15 05:50] LABS: Hematocrit (blood only) 44.2 % (37-47); Hemoglobin 14.9 g/dL (12.0-16.0); Mean Corpuscular Hgb Conc 33.7 g/dL (32-36); Mean Platelet Volume 10.1 fL (7.4-10.4); Nucleated RBC # (auto) 0.05 K/uL (0-0); Nucleated RBC % (auto) 0.8 %; Platelet Count 238 K/uL (130-400); RDW Coefficient of Variation 16.6 % (11.5-14.5); RDW Standard Deviation 49.6 fL (36.4-46.3); Red Blood Count 5.39 M/uL (4.2-5.4)
[2018-11-15] MEDS: HYDROCODONE/ACETAMOPHEN 5/325MG TAB PO PRN (05:58)
[2018-11-15] MEDS: LEVOTHYROXINE SODIUM 25 MCG TABLET PO SCH (05:58)
[2018-11-15 06:41] LABS: BUN Creatinine Ratio 30.1 (10-20); Calcium 12.3 mg/dl (8.5-10.1); Creatinine Clr Calc Pharmacy 32.3 ml/min; Est GFR (African American) 27.9; Est GFR (Non-African American) 24.1
[2018-11-15 06:56] LABS: Basophils # (auto) 0.04 K/uL (0-0.2); Basophils % (auto) 0.6 %; Eosinophils # (auto) 0.11 K/uL (0-0.5); Eosinophils % (auto) 1.7 %; Immature Granulocytes # (auto) 0.33 K/uL (0.00-0.02); Immature Granulocytes % (auto) 5.1 %; Lymphocytes # (auto) 1.31 K/uL (1.2-3.4); Lymphocytes % (auto) 20.2 %; Monocytes % (auto) 7.7 %; Neutrophils # (auto) 4.21 K/uL (1.4-6.5); Neutrophils % (auto) 64.7 %
[2018-11-15 07:07] LABS: Estimated Average Glucose 157 mg/dl
[2018-11-15] MEDS: SODIUM CHLORIDE 0.45 % 1,000 ML IV SCH ×2 (08:58→21:15)
[2018-11-15] MEDS: INSULIN ASPART 100 UNITS/ML 3 ML PEN SC SCH ×4 (08:59→20:54)
[2018-11-15] MEDS ORDERED: ASPIRIN 81 MG ECTAB PO SCH (09:00)
[2018-11-15] MEDS ORDERED: LISINOPRIL 20 MG TAB PO SCH (09:00)
[2018-11-15] MEDS: buPROPion HCl 75 MG TABLET PO SCH ×3 (09:00→20:55)
[2018-11-15] MEDS: NORETHINDRONE 5 MG TAB PO SCH ×2 (09:00→20:51)
[2018-11-15] MEDS ORDERED: TRIAMTERENE/HCTZ 37.5/25MG CAP PO SCH (09:00)
[2018-11-15] MEDS: DICLOFENAC SODIUM 75 MG TABCR PO SCH (09:01)
[2018-11-15] MEDS: DOCUSATE SODIUM 100 MG CAP PO SCH ×2 (09:01→20:44)
[2018-11-15] MEDS: LUBIPROSTONE 8 MCG CAP PO SCH ×2 (09:01→20:43)
[2018-11-15] MEDS: BusPIRone 15 MG TAB PO SCH (09:02)
[2018-11-15] MEDS: CLOPIDOGREL BISULFATE 75 MG TAB PO SCH (09:02)
[2018-11-15] MEDS: ATORVASTATIN 40 MG TAB PO SCH (09:02)
[2018-11-15] MEDS: DULOXETINE HCL 60 MG CAP PO SCH (09:03)
[2018-11-15] MEDS: lamoTRIgine 100 MG TAB PO SCH ×2 (09:03→20:53)
[2018-11-15] MEDS: TOLTERODINE TARTRATE LA 2 MG CAPCR PO SCH (09:04)
[2018-11-15] MEDS: GABAPENTIN 800 MG TAB PO SCH ×2 (09:04→09:14)
[2018-11-15] MEDS: VITAMIN B COMPLEX TAB PO SCH (09:04)
[2018-11-15] MEDS: METOPROLOL TARTRATE 50 MG TAB PO SCH ×2 (09:04→20:53)
[2018-11-15] MEDS: PSYLLIUM 58.6% POWDER PACKET PO SCH (09:05)
[2018-11-15] MEDS: POLYETHYLENE (MIRALAX) 17 GM PACK PO SCH ×2 (09:05→20:44)
--- NOTE | 2018-11-15 09:26 | Oncology Consultation ---
Date of Consultation November 15, 2018 Assessment & Plan (1) Lesion of liver: The appearance of her scans is concerning for a malignancy, though they are limited due to a lack of IV contrast. I would get a dedicated chest CT today , to look for primary lesions. Given her upper airway symptoms, I might also consider a CT neck, though that study would be difficult to interpret without contrast. I would also consult gastroenterology to discuss her dysphagia symptoms. If a primary lesion is not immediately obvious following such a workup , the next step would likely involve a biopsy of the liver mass, though an US might be needed to better characterize the lesion first. Present on Admission?: Yes (2) Hypercalcemia: This may be related to a malignancy. One possibility is a paraneoplastic hypercalcemia and I would check a PTH-related protein level. The other possibility is hypercalcemia from increased bone turnover related to possible bony metastases seen on CT. Continue supportive management for now. Bisphosphonates will need to be used with caution, or omitted, in light of her renal failure. Another alternative would be denosumab. Present on Admission?: Yes History of Present Illness Reason for Consultation: CT scans concerning for metastatic malignancy Hypercalcemia Renal Failure Attending Physician: Erlin Garcia DO History of Present Illness Ms. 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 She has been ill over the last few months. Her primary complaints have been generalized weakness, ~20-30lb weight loss, and difficulty eating. She says food gets stuck, though she describes the sensation as happening high in her neck. She states that the sensation is often associated with pain in her right ear. She denies any vomiting, hematemesis, or regurgitation. She was seen in the ER in October for a somewhat similar constellation of symptoms. At that time, she had a CT that revealed an Indeterminate 37 mm right hepatic lobe lesion, an indeterminate 11 mm peritoneal nodule located anterior to the left lobe the liver, and a 4 cm lobulated right adnexal structure, likely representing a mildly enlarged right ovary. She also had an XU and mild hypercalcemia. Her ED physicians recommended admission, but she refused and left AMA. She returned yesterday after her intensive renal case manager found that she was too weak to climb down stairs. She had a more marked hypercalcemia and XU. She has some pain in her back and legs, though a lumbar spine MRI was negative for masses or fractures. She also has a rash that has been ongoing for a few weeks. It starts as nodules that rupture and then leave a discolored jalyn on her skin. Allergies Allergy/AdvReac Type Severity Reaction Status Date / Time aripiprazole Allergy Intermediate confused Verified 11/14/18 16:22 cephalexin Allergy Unknown HIVES Unverified 11/14/18 16:22 Sulfa (Sulfonamide Allergy Unknown . Verified 11/14/18 16:22 Antibiotics) Home Medications Home Medications Medication Instructions Recorded Confirmed Type albuterol sulfate [ProAir HFA] 2 puff INHALATION Q6H PRN 10/24/18 11/14/18 History amlodipine 5 mg PO DAILY 10/24/18 11/14/18 History aspirin [Aspirin Low Dose] 81 mg PO DAILY 10/24/18 11/14/18 History atorvastatin 80 mg PO DAILY 10/24/18 11/14/18 History blood glucose control, normal 10/24/18 11/14/18 History [OneTouch Ultra Control] bupropion HCl 75 mg PO TID 10/24/18 11/14/18 History clopidogrel 75 mg PO DAILY 10/24/18 11/14/18 History diclofenac sodium 75 mg PO BID 10/24/18 11/14/18 History docusate sodium [Colace] 100 mg PO BID 10/24/18 11/14/18 History duloxetine 60 mg PO DAILY 10/24/18 11/14/18 History fluticasone furoate [Arnuity 1 inh INHALATION DAILY 10/24/18 11/14/18 History Ellipta] furosemide 20 mg PO DAILY PRN 10/24/18 11/14/18 History gabapentin 800 mg PO TID 10/24/18 11/14/18 History glipizide 10 mg PO BID 10/24/18 11/14/18 History ipratropium bromide 2 spray INTRANASAL BID PRN 10/24/18 11/14/18 History lamotrigine 150 mg PO BID 10/24/18 11/14/18 History levothyroxine 25 mcg PO DAILY 10/24/18 11/14/18 History lidocaine [Aspercreme (lidocaine)] 1 patch TOPICAL BID 10/24/18 11/14/18 History lubiprostone [Amitiza] 24 mcg PO BID 10/24/18 11/14/18 History metoprolol tartrate 50 mg PO BID 10/24/18 11/14/18 History pioglitazone 45 mg PO DAILY 10/24/18 11/14/18 History polyethylene glycol 3350 [Miralax] 17 g PO BID 10/24/18 11/14/18 History psyllium husk [Metamucil] 0.52 g PO DAILY 10/24/18 11/14/18 History sitagliptin [Januvia] 100 mg PO DAILY 10/24/18 11/14/18 History tolterodine 2 mg PO DAILY 10/24/18 11/14/18 History umeclidinium-vilanterol [Anoro 1 inh INHALATION DAILY 10/24/18 11/14/18 History Ellipta] B complex-vitamin C-folic acid 1 tab PO DAILY 11/14/18 11/14/18 History buspirone 15 mg PO BID 11/14/18 11/14/18 History hydrocodone-acetaminophen 1 tab PO TID PRN 11/14/18 11/14/18 History lisinopril 20 mg PO DAILY 11/14/18 11/14/18 History morphine 15 mg PO TID PRN 11/14/18 11/14/18 History norethindrone acetate 5 mg PO BID 11/14/18 11/14/18 History triamterene-hydrochlorothiazid 1 tab PO DAILY 11/14/18 11/14/18 History Patient History Medical History Chronic back pain (Chronic) History of TIA (transient ischemic attack) (Chronic) History of asthma (Chronic) History of kidney stones (Chronic) History of diabetes mellitus (Chronic) History of hypertension (Chronic) Family History Mother Heart attack Social History Current Living Situation: Spouse Other Information That Helps Us Care for You: No Feels Safe at Home: Yes Smoking Status: Current every day smoker Tobacco Type: cigarettes Cigarettes per Day: 18 Do You Dip or Chew Tobacco: No Second Hand Exposure: Yes Tobacco Cessation Education Requested by Patient: Yes Hx Alcohol Use: No Hx Substance Use: No Beliefs That Will Affect Care: None Preferred Language: Bulgarian Oxygen Equipment Preparer Required: No Review of Systems Constitutional: as per Subjective / HPI Eyes: no worsening vision Ear, Nose, Mouth, Throat: as per Subjective / HPI Respiratory: + cough and + dyspnea Cardiovascular: no chest pain and no palpitations Gastrointestinal: no abdominal pain, no vomiting and no diarrhea/loose stools Genitourinary (Female): no dysuria, no hematuria and no abnormal vaginal bleeding Musculoskeletal: + back pain Integumentary: as per Subjective / HPI Neurologic: no localized weakness, no headache(s) and no confusion Hematologic / Lymphatic: no lymphadenopathy and no night sweats Physical Exam 2 Vital Signs (Past 24 Hours): Last Vital Signs Temp 37.0 C 11/15/18 07:00 Pulse 92 H 11/15/18 07:00 Resp 21 11/15/18 07:00 BP 91/63 L 11/15/18 07:00 Pulse Ox 92 11/15/18 07:00 Constitutional: + ill appearing, + obese and + disheveled; no acute distress Eyes: + anicteric sclerae and EOM intact bilaterally ENMT: external ear and nose normal, oropharynx normal Respiratory: normal respiratory effort and + prolonged expiratory phase Auscultation: + wheezes (in all damon anteriorly) Cardiovascular: RRR, no murmur, no edema Gastrointestinal (Abdomen): normal bowel sounds, soft, nontender, no hepatosplenomegaly Musculoskeletal: no cyanosis or clubbing, extremities motor strength 5/5 Skin: Scattered brownish discolored spots on her abdomen anteriorly, with some containing central areas of healing ulceration Lymphatic: no cervical or axillary lymphadenopathy Results & Data Laboratory Results Abnormal Labs 11/14/18 11/14/18 11/14/18 15:40 15:42 15:42 RBC 5.68 H RDW Std Deviation 48.8 H RDW Coeff of Rayray 16.5 H MPV 10.7 H Immature Gran # (Auto) 0.33 H [place] # (Auto) 0.73 H Absolute Nucleated RBC Sodium 127 L Chloride 95 L BUN 71 H Creatinine 2.42 H BUN/Creatinine Ratio 29.2 H Glucose 126 H POC Glucose 128 H Hemoglobin A1c Calcium 13.6 H* AST 49 H Total Protein 8.3 H Albumin 2.6 L Globulin 5.7 H Albumin/Globulin Ratio 0.5 L Lipase 1057 H Urine Appearance Urine Blood Urine Nitrite Ur Leukocyte Esterase Urine WBC (Auto) Urine RBC (Auto) U Hyaline Cast (Auto) U Epithel Cells (Auto) Urine Bacteria (Auto) 11/14/18 11/15/18 11/15/18 20:30 05:36 05:36 RBC RDW Std Deviation 49.6 H RDW Coeff of Rayray 16.6 H MPV Immature Gran # (Auto) 0.33 H [place] # (Auto) Absolute Nucleated RBC 0.05 H Sodium 130 L Chloride BUN 70 H Creatinine 2.32 H BUN/Creatinine Ratio 30.1 H Glucose POC Glucose Hemoglobin A1c Calcium 12.3 H* AST Total Protein Albumin Globulin Albumin/Globulin Ratio Lipase Urine Appearance Cloudy H Urine Blood 1+ H Urine Nitrite Positive H Ur Leukocyte Esterase 2+ H Urine WBC (Auto) >30 H Urine RBC (Auto) 10-30 H U Hyaline Cast (Auto) 5-10 H U Epithel Cells (Auto) >30 H Urine Bacteria (Auto) 4+ H 11/15/18 05:36 RBC RDW Std Deviation RDW Coeff of Rayray MPV Immature Gran # (Auto) [place] # (Auto) Absolute Nucleated RBC Sodium Chloride BUN Creatinine BUN/Creatinine Ratio Glucose POC Glucose Hemoglobin A1c 7.1 H Calcium AST Total Protein Albumin Globulin Albumin/Globulin Ratio Lipase Urine Appearance Urine Blood Urine Nitrite Ur Leukocyte Esterase Urine WBC (Auto) Urine RBC (Auto) U Hyaline Cast (Auto) U Epithel Cells (Auto) Urine Bacteria (Auto)
[2018-11-15] MEDS: ONDANSETRON INJ 2 MG/ML 2 ML VIAL IV PRN (11:40)
[2018-11-15] MEDS: GABAPENTIN 250 MG/5 ML 470 ML BTL PO SCH ×3 (12:24→21:13)
--- NOTE | 2018-11-15 17:58 | Family Medicine Progress Note ---
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 She presented with complaints of chronic back pain. -Gabapentin and Cymbalta for chronic pain, can increase dose as needed for adequate pain control. -MS Contin for pain as well. -Will stop ASA/Plavix for 1 week for possible lung biopsy to likely be done outpt. (2) Renal failure: Repeat UA to look for possible intrarenal cause -Socium random urine-for fractional excretion -IV fluids-will continue to assess how he tolerates hydration -Trend BMP -Nephrotoxic meds d/c- Diclofenac, Lisionpril, HZT (3) Hypercalcemia: -asymptomatic currently -On IV fluids -Will continue to assess need for calcitonin/bisphosphonate (4) Swallowing difficulty: -GI consult for possible scope to uncover potential causes -Barium swallow showed mild dysmotility-otherwise normal (5) Chronic back pain: -As above for pain for bony mets (6) HTN (hypertension): -Lisinopril held due to effect on kidneys. (7) Fall: related to her hypoglycemia -fall precautions (8) Depression: cont home meds (9) DM type 2 (diabetes mellitus, type 2): V7y---6.1 SSI prn (10) CVA (cerebral vascular accident): Aspirin/Plavix d/c for liver met biopsy in near future (11) Anxiety: continue home meds (12) Fibroid: f/u outpt (13) ROSIBEL (obstructive sleep apnea): -noncompliant with CPAP -uses bedtime oxygen (14) Hypothyroid: continue home meds (15) Hyperlipidemia: continue home meds (16) DVT prophylaxis: Heparin, SCDs Supervising Physician Co-Signing Physician Notes I personally examined the patient and verified all morrison points of history and exam, discussed case, and agree with decision making with Dr Martinez. Having significant dysphasia is her biggest problem. She notes her pain is under reasonable control. She has lost significant weight over quite a time period. Visited patient and then revisited later. On revisit we were asked to evaluate due to degree of lethargy. She is sleeping appearing comfortable she awakens arouses communicates well and then drifts back off to sleep. She has no new complaints at that time. Her family has extensive questions and answered them all to the best my ability. Initial visit approximately 10 to 10:20 AM, second visit approximately 4 to 4:30 PM. Vitals noted, in general she appears very fatigued but is in no distress. HEENT normocephalic atraumatic mucous membranes are moist. Skin shows no rashes no pallor or icterus. Lungs are clear to auscultation without any rales rhonchi or wheezes, cardio is regular without rubs murmurs or gallops. Neuro shows no focal deficits Metastatic cancermost likely lung, repeat CT chest given that it appears that the initial diagnosis was made on CT more than [address] head for staging. We will hold aspirin and Plavix with hopes of being able to get a needle biopsy of her liver lesion. Dysphasiaher barium swallow not that long ago appears relatively normal, there was a mild degree of dysmotility but certainly not enough to explain her symptoms. Will ask GI to evaluate her for possible EGD. Painher pain appears to be under reasonable control right now. Continue current regimen. Renal failureit is uncertain how much of this is acute and how much is permanent. Check UA, fractional excretion of sodium. Continue IV fluids and follow. Cerebrovascular diseaseshe notes a stroke about 16 years ago, and she believes another stroke about 7 years ago. She is not aware of circumstances other than that she was started on aspirin and Plavix for those and has been on it since. She does not have a history of NC, and has no stents that she is aware of. Given the need to obtain a needle biopsy of her liver to progress her care with her cancer, holding the aspirin and Plavix appears to be more favorable for risk /benefit in the current setting DVT prophylaxisheparin subcu Subjective Pt states that her biggest problem is her dysphagia. States she is also scared of having to be on a ventilator. Denies chest pain, SOB, palpitations, N/V, diarrhea. Physical Exam 2 Vital Signs (Past 24 Hours): Last Vital Signs Temp 36.4 C L 11/15/18 15:01 Pulse 107 H 11/15/18 15:01 Resp 20 11/15/18 15:01 BP 94/66 L 11/15/18 15:01 Pulse Ox 94 11/15/18 15:01 General: Alert, oriented HEENT: NC/AT, PERRLA, EOMI, oropharynx moist. Chest: Nontender to palpation. CV: RRR, Normal s1, s2. No murmurs appreciated Resp:Audible stridor without stethoscope. Breath sounds clear bilaterally with some reflected stridor, no increased effort of breathing. No crackles/rhonchi/ rales. Abdomen: Mulitple healed lesions on abdomen. BS+. Soft, nontender, nondistended. No guarding. No organomegaly appreciated. Extremities: No edema. Results & Data Laboratory Results Laboratory Results - last 24 hr 11/14/18 11/14/18 11/14/18 20:30 20:30 20:32 WBC RBC Hgb Hct MCV MCH MCHC RDW Std Deviation RDW Coeff of Rayray Plt Count MPV Immature Gran % (Auto) Neut % (Auto) Lymph % (Auto) [place] % (Auto) Eos % (Auto) Baso % (Auto) Immature Gran # (Auto) Neut # (Auto) Lymph # (Auto) [place] # (Auto) Eos # (Auto) Baso # (Auto) Absolute Nucleated RBC Nucleated RBC % (auto) Giant Platelets PT INR Sodium Potassium Chloride Carbon Dioxide Anion Gap BUN Creatinine Est Cr Clr Drug Dosing Est GFR ( Amer) Est GFR (Non-Af Amer) BUN/Creatinine Ratio Glucose POC Glucose 85 Estimat Average Glucose Hemoglobin A1c Calcium Urine Color Yellow Urine Appearance Cloudy H Urine pH 5.0 Ur Specific [place] 1.016 Urine Protein Negative Urine Glucose (UA) Negative Urine Ketones Negative Urine Blood 1+ H Urine Nitrite Positive H Urine Bilirubin Negative Urine Urobilinogen Negative Ur Leukocyte Esterase 2+ H Urine WBC (Auto) >30 H Urine RBC (Auto) 10-30 H U Hyaline Cast (Auto) 5-10 H U Epithel Cells (Auto) >30 H Urine Bacteria (Auto) 4+ H POC Ur Test Cancelled 11/14/18 11/15/18 11/15/18 22:12 05:36 05:36 WBC 6.50 RBC 5.39 Hgb 14.9 Hct 44.2 MCV 82.0 MCH 27.6 MCHC 33.7 RDW Std Deviation 49.6 H RDW Coeff of Rayray 16.6 H Plt Count 238 MPV 10.1 Immature Gran % (Auto) 5.1 Neut % (Auto) 64.7 Lymph % (Auto) 20.2 [place] % (Auto) 7.7 Eos % (Auto) 1.7 Baso % (Auto) 0.6 Immature Gran # (Auto) 0.33 H Neut # (Auto) 4.21 Lymph # (Auto) 1.31 [place] # (Auto) 0.50 Eos # (Auto) 0.11 Baso # (Auto) 0.04 Absolute Nucleated RBC 0.05 H Nucleated RBC % (auto) 0.8 Giant Platelets 1+ PT 11.4 INR 1.1 Sodium 130 L Potassium 5.0 Chloride 98 Carbon Dioxide 24 Anion Gap 8.0 BUN 70 H Creatinine 2.32 H Est Cr Clr Drug Dosing 32.3 Est GFR ( Amer) 27.9 Est GFR (Non-Af Amer) 24.1 BUN/Creatinine Ratio 30.1 H Glucose 82 POC Glucose Estimat Average Glucose Hemoglobin A1c Calcium 12.3 H* Urine Color Urine Appearance Urine pH Ur Specific [place] Urine Protein Urine Glucose (UA) Urine Ketones Urine Blood Urine Nitrite Urine Bilirubin Urine Urobilinogen Ur Leukocyte Esterase Urine WBC (Auto) Urine RBC (Auto) U Hyaline Cast (Auto) U Epithel Cells (Auto) Urine Bacteria (Auto) POC Ur Test 11/15/18 11/15/18 11/15/18 05:36 07:38 11:48 WBC RBC Hgb Hct MCV MCH MCHC RDW Std Deviation RDW Coeff of Rayray Plt Count MPV Immature Gran % (Auto) Neut % (Auto) Lymph % (Auto) [place] % (Auto) Eos % (Auto) Baso % (Auto) Immature Gran # (Auto) Neut # (Auto) Lymph # (Auto) [place] # (Auto) Eos # (Auto) Baso # (Auto) Absolute Nucleated RBC Nucleated RBC % (auto) Giant Platelets PT INR Sodium Potassium Chloride Carbon Dioxide Anion Gap BUN Creatinine Est Cr Clr Drug Dosing Est GFR ( Amer) Est GFR (Non-Af Amer) BUN/Creatinine Ratio Glucose POC Glucose 91 100 H Estimat Average Glucose 157 Hemoglobin A1c 7.1 H Calcium Urine Color Urine Appearance Urine pH Ur Specific [place] Urine Protein Urine Glucose (UA) Urine Ketones Urine Blood Urine Nitrite Urine Bilirubin Urine Urobilinogen Ur Leukocyte Esterase Urine WBC (Auto) Urine RBC (Auto) U Hyaline Cast (Auto) U Epithel Cells (Auto) Urine Bacteria (Auto) POC Ur Test 11/15/18 16:38 WBC RBC Hgb Hct MCV MCH MCHC RDW Std Deviation RDW Coeff of Rayray Plt Count MPV Immature Gran % (Auto) Neut % (Auto) Lymph % (Auto) [place] % (Auto) Eos % (Auto) Baso % (Auto) Immature Gran # (Auto) Neut # (Auto) Lymph # (Auto) [place] # (Auto) Eos # (Auto) Baso # (Auto) Absolute Nucleated RBC Nucleated RBC % (auto) Giant Platelets PT INR Sodium Potassium Chloride Carbon Dioxide Anion Gap BUN Creatinine Est Cr Clr Drug Dosing Est GFR ( Amer) Est GFR (Non-Af Amer) BUN/Creatinine Ratio Glucose POC Glucose 85 Estimat Average Glucose Hemoglobin A1c Calcium Urine Color Urine Appearance Urine pH Ur Specific [place] Urine Protein Urine Glucose (UA) Urine Ketones Urine Blood Urine Nitrite Urine Bilirubin Urine Urobilinogen Ur Leukocyte Esterase Urine WBC (Auto) Urine RBC (Auto) U Hyaline Cast (Auto) U Epithel Cells (Auto) Urine Bacteria (Auto) POC Ur Test Medications Administered Home Medications albuterol sulfate [ProAir HFA] 2 puff INHALATION Q6H PRN 10/24/18 [History Confirmed 11/14/18] amlodipine 5 mg PO DAILY 10/24/18 [History Confirmed 11/14/18] aspirin [Aspirin Low Dose] 81 mg PO DAILY 10/24/18 [History Confirmed 11/14/18] atorvastatin 80 mg PO DAILY 10/24/18 [History Confirmed 11/14/18] blood glucose control, normal [OneTouch Ultra Control] 10/24/18 [History Confirmed 11/14/18] bupropion HCl 75 mg PO TID 10/24/18 [History Confirmed 11/14/18] clopidogrel 75 mg PO DAILY 10/24/18 [History Confirmed 11/14/18] diclofenac sodium 75 mg PO BID 10/24/18 [History Confirmed 11/14/18] docusate sodium [Colace] 100 mg PO BID 10/24/18 [History Confirmed 11/14/18] duloxetine 60 mg PO DAILY 10/24/18 [History Confirmed 11/14/18] fluticasone furoate [Arnuity Ellipta] 1 inh INHALATION DAILY 10/24/18 [History Confirmed 11/14/18] furosemide 20 mg PO DAILY PRN 10/24/18 [History Confirmed 11/14/18] gabapentin 800 mg PO TID 10/24/18 [History Confirmed 11/14/18] glipizide 10 mg PO BID 10/24/18 [History Confirmed 11/14/18] ipratropium bromide 2 spray INTRANASAL BID PRN 10/24/18 [History Confirmed 11/14] lamotrigine 150 mg PO BID 10/24/18 [History Confirmed 11/14/18] levothyroxine 25 mcg PO DAILY 10/24/18 [History Confirmed 11/14/18] lidocaine [Aspercreme (lidocaine)] 1 patch TOPICAL BID 10/24/18 [History Confirmed 11/14/18] lubiprostone [Amitiza] 24 mcg PO BID 10/24/18 [History Confirmed 11/14/18] metoprolol tartrate 50 mg PO BID 10/24/18 [History Confirmed 11/14/18] pioglitazone 45 mg PO DAILY 10/24/18 [History Confirmed 11/14/18] polyethylene glycol 3350 [Miralax] 17 g PO BID 10/24/18 [History Confirmed 11/14] psyllium husk [Metamucil] 0.52 g PO DAILY 10/24/18 [History Confirmed 11/14/18] sitagliptin [Januvia] 100 mg PO DAILY 10/24/18 [History Confirmed 11/14/18] tolterodine 2 mg PO DAILY 10/24/18 [History Confirmed 11/14/18] umeclidinium-vilanterol [Anoro Ellipta] 1 inh INHALATION DAILY 10/24/18 [ History Confirmed 11/14/18] B complex-vitamin C-folic acid 1 tab PO DAILY 11/14/18 [History Confirmed ] buspirone 15 mg PO BID 11/14/18 [History Confirmed 11/14/18] hydrocodone-acetaminophen 1 tab PO TID PRN 11/14/18 [History Confirmed 11/14/18] lisinopril 20 mg PO DAILY 11/14/18 [History Confirmed 11/14/18] morphine 15 mg PO TID PRN 11/14/18 [History Confirmed 11/14/18] norethindrone acetate 5 mg PO BID 11/14/18 [History Confirmed 11/14/18] triamterene-hydrochlorothiazid 1 tab PO DAILY 11/14/18 [History Confirmed ] Active Medications Acetaminophen (Tylenol) 650 mg PO Q4H PRN PRN Reason: pain/fever Stop: 12/14/18 20:28 Hydrocodone Bitart/Acetaminophen ([place] 5/325) 1 tab PO TID PRN PRN Reason: Pain Stop: 11/28/18 20:28 Last Admin: 11/15/18 05:58 Dose: 1 tab Albuterol (Ventolin Hfa) 2 puffs INH Q6H PRN PRN Reason: Shortness Of Breath Stop: 12/14/18 21:14 Aspirin (Ecotrin Ectab) 81 mg PO DAILY [facility] Stop: 12/15/18 08:59 Last Admin: 11/15/18 09:01 Dose: 81 mg Atorvastatin Calcium (Lipitor) 80 mg PO DAILY [facility] Stop: 12/15/18 08:59 Last Admin: 11/15/18 09:02 Dose: 80 mg Bupropion HCl (Wellbutrin) 75 mg PO TID [facility] Stop: 12/14/18 20:59 Last Admin: 11/15/18 13:16 Dose: Not Given Buspirone HCl (Buspar) 15 mg PO BID [facility] Stop: 12/15/18 20:59 Clopidogrel Bisulfate (Plavix) 75 mg PO DAILY [facility] Stop: 12/15/18 08:59 Last Admin: 11/15/18 09:02 Dose: 75 mg Dextrose (Dextrose 50%) 25 - 50 ml IV UD PRN; Protocol PRN Reason: Hypoglycemia Protocol Stop: 12/14/18 20:28 Docusate Sodium (Colace) 100 mg PO BID [facility] Stop: 12/14/18 20:59 Last Admin: 11/15/18 09:01 Dose: 100 mg Duloxetine HCl (Cymbalta) 60 mg PO DAILY [facility] Stop: 12/15/18 08:59 Last Admin: 11/15/18 09:03 Dose: 60 mg Furosemide (Lasix) 20 mg PO DAILY PRN PRN Reason: Fluid Retention Stop: 12/14/18 20:28 Last Admin: 11/15/18 09:02 Dose: 20 mg Gabapentin (Neurontin) 800 mg PO TID [facility] Stop: 12/15/18 10:59 Last Admin: 11/15/18 16:50 Dose: 800 mg Glucagon (Glucagen) 1 mg SQ UD PRN; Protocol PRN Reason: Hypoglycemia Protocol Stop: 12/14/18 20:28 Glucose (Glucose 40%) 15 - 30 gm PO UD PRN; Protocol PRN Reason: Hypoglycemia Protocol Stop: 12/14/18 20:28 Glucose (Dex4 Glucose) 4 - 8 tabs PO UD PRN; Protocol PRN Reason: Hypoglycemia Protocol Stop: 12/14/18 20:28 Heparin Sodium (Porcine) (Heparin Sodium (Porcine)) 5,000 units SQ Q8 [facility] Stop: 12/14/18 22:59 Last Admin: 11/15/18 13:15 Dose: 5,000 units Sodium Chloride (1/2 Nss) 1,000 mls @ 80 mls/hr IV .[id number] [facility] Stop: 12/14/18 20:28 Last Admin: 11/15/18 08:58 Dose: 80 mls/hr Insulin Aspart (Novolog Flexpen) 0 units SC ACHS [facility] Stop: 12/14/18 20:59 Last Admin: 11/15/18 18:04 Dose: 1 units Ipratropium [place] (Atrovent Nasal [place] 0.06%) 1 sprays MELISSA BID PRN PRN Reason: NASAL CONGESTION Stop: 12/14/18 21:44 Lamotrigine (Lamictal) 150 mg PO BID [facility] Stop: 12/14/18 21:29 Last Admin: 11/15/18 09:03 Dose: 150 mg Latanoprost (Xalatan Oph) 1 drops OP BID [facility] Stop: 12/15/18 20:59 Levobunolol HCl (Betagan 0.5% Oph) 1 drops OP BID [facility] Stop: 12/15/18 20:59 Levothyroxine Sodium (Synthroid) 25 mcg PO DAILYBB [facility] Stop: 12/15/18 06:29 Last Admin: 11/15/18 05:58 Dose: 25 mcg Lubiprostone (Amitiza) 24 mcg PO BID [facility] Stop: 12/14/18 21:59 Last Admin: 11/15/18 09:01 Dose: 24 mcg Magnesium Hydroxide (Milk Of Magnesia) 30 ml PO Q6H PRN PRN Reason: Constipation Stop: 12/14/18 20:28 Metoprolol Tartrate (Lopressor) 50 mg PO BID [facility] Stop: 12/14/18 20:59 Last Admin: 11/15/18 09:04 Dose: Not Given Miscellaneous (Order Awaiting Action) 1 ea N/A QS [facility] Stop: 12/15/18 00:00 Last Admin: 11/15/18 16:41 Dose: Not Given Miscellaneous (Carbohydrates For Hypoglycemia) 15 - 30 gm PO UD PRN PRN Reason: Hypoglycemia Treatment Stop: 12/14/18 20:28 Miscellaneous (Order Awaiting Action) 1 ea N/A QS [facility] Stop: 12/15/18 00:00 Last Admin: 11/15/18 16:41 Dose: Not Given Miscellaneous (Order Awaiting Action) 1 ea N/A QS [facility] Stop: 12/15/18 00:00 Last Admin: 11/15/18 16:41 Dose: Not Given Norethindrone (Aygestin) 5 mg PO BID [facility] Stop: 12/14/18 20:59 Last Admin: 11/15/18 09:00 Dose: 5 mg Ondansetron HCl (Zofran) 4 mg IV Q6H PRN PRN Reason: Nausea Stop: 12/14/18 20:28 Last Admin: 11/15/18 11:40 Dose: 4 mg Polyethylene Glycol (Miralax Powder Packet) 17 gm PO BID [facility] Stop: 12/14/18 20:59 Last Admin: 11/15/18 09:05 Dose: Not Given Psyllium Hydrophilic Mucilloid (Metamucil) 1 pkt PO QAM [facility] Stop: 12/15/18 08:59 Last Admin: 11/15/18 09:05 Dose: Not Given Tolterodine Tartrate (Detrol La) 2 mg PO DAILY [facility] Stop: 12/15/18 08:59 Last Admin: 11/15/18 09:04 Dose: 2 mg Vitamin B Complex (Vitamin B Complex) 1 tab PO QAM [facility] Stop: 12/15/18 08:59 Last Admin: 11/15/18 09:04 Dose: 1 tab Resident Activity Tracking Resident Involvement: Resident Care Provided Care Provided: [facility] Medicine _ (1) Renal failure Acute renal failure type: Chronic kidney disease stage: Renal failure chronicity:
--- NOTE | 2018-11-15 19:32 | CT Scan Report ---
HEAD CT NONCONTRAST CT DOSE: HISTORY: lung cancer staging TECHNIQUE: Multiaxial CT images of the head were performed without the use of intravenous contrast. A utomated exposure control was utilized for this study. A dose lowering technique was utilized adheri ng to the principles of ALARA. Comparison: None. Findings: The paranasal sinuses and mastoid air cells are clear. The calvarium and skull base are int act. The ventricles and sulci are within normal limits. Evaluation for a mass is suboptimal due to th e lack of intravenous contrast. However, there is no definite is no mass, hematoma, midline shift, or acute infarct. Impression: No acute intracranial abnormality. Electronically signed by: Abdirahman Nance M.D. 11/15/2018 7:31 PM
--- NOTE | 2018-11-15 20:02 | CT Scan Report ---
CT chest wo con CT DOSE: 1688.80 mGy.cm HISTORY: History of lung cancer. TECHNIQUE: Multiaxial CT images of the chest were performed without contrast. A dose lowering techni que was utilized adhering to the principles of ALARA. COMPARISON: Chest CTA 12/27/2017. Abdomen and pelvis CT 11/14/2018. FINDINGS: There is a 5.7 cm mass within the right hepatic lobe which likely represents an extensive d isease. Periportal lymphadenopathy multiple scattered retroperitoneal and peritoneal nodules are agai n noted within the upper abdomen. There is right lower cervical/supraclavicular and right axillary ly mphadenopathy. Dominant right lower cervical lymph node measures 4.2 cm. There is extensive right par atracheal/right hilar soft tissue abnormality consistent with metastatic disease. This nearly encases the mid to distal trachea. This also partially encases the left mainstem bronchus and completely enc ases the right mainstem bronchus and right lobar bronchi. There appears to be occlusion of the right upper lobe bronchus and right middle lobe bronchus due to this soft tissue mass/lymphadenopathy. Ther e is mild to moderate narrowing of the bronchus intermedius. This also encases the distal right main pulmonary artery and abuts the right side of the aortic arch. This soft tissue mass partially encases the innominate artery. Multiple additional enlarged anterior mediastinal lymph nodes consistent with metastatic disease. Small pericardial effusion is noted. The dominant metastatic mass/confluent lymp hadenopathy measures up to 8.5 cm. There is a healing left lateral seventh rib fracture. This could b e pathologic. Suspect scattered tiny lytic lesions within the visualized osseous structures. This lik luis represents metastatic disease. No pneumothorax. Mild emphysema. A 3 mm nodule within the left low er lobe on image 219. This was not present on the prior study and is concerning for a septic focus. T here are 3 focal areas of consolidation within the periphery the right upper lobe with the largest me asuring 3.2 cm. These are concerning for metastatic disease. Consolidation within the right middle lo be posteriorly favors atelectasis. A 5 mm nodule within the right middle lobe which also likely repre sents metastatic disease. Reticulonodular interstitial thickening within the right upper lobe which m ay be due to a postobstructive pneumonitis versus lymphangitic carcinomatosis. IMPRESSION: Extensive metastatic disease within the neck, chest, and visualized upper abdomen as described above. Dominant right peritracheal/hilar soft tissue mass measures up to 8.5 cm. Electronically signed by: Abdirahman Nance M.D. 11/15/2018 8:01 PM
[2018-11-15] MEDS: LEVOBUNOLOL HCL 0.5% OP SOLN 5 ML BTL OP SCH (20:51)
[2018-11-15] MEDS: LATANOPROST 0.005% OP SOLN 2.5 ML BTL OP SCH (20:55)
[2018-11-16] MEDS: HEPARIN SOD 5,000 UNIT/0.5 ML VIAL SQ SCH ×3 (05:31→21:54)
[2018-11-16] MEDS: LEVOTHYROXINE SODIUM 25 MCG TABLET PO SCH (05:31)
[2018-11-16 06:07] LABS: Basophils # (auto) 0.02 K/uL (0-0.2); Basophils % (auto) 0.2 %; Eosinophils # (auto) 0.13 K/uL (0-0.5); Eosinophils % (auto) 1.6 %; Hematocrit (blood only) 43.3 % (37-47); Hemoglobin 14.3 g/dL (12.0-16.0); Immature Granulocytes # (auto) 0.22 K/uL (0.00-0.02); Immature Granulocytes % (auto) 2.7 %; Lymphocytes # (auto) 1.52 K/uL (1.2-3.4); Lymphocytes % (auto) 18.7 %; Mean Corpuscular Volume 83.1 fL (80-100); Mean Platelet Volume 10.3 fL (7.4-10.4); Monocytes # (auto) 0.48 K/uL (0.11-0.59); Monocytes % (auto) 5.9 %; Neutrophils # (auto) 5.77 K/uL (1.4-6.5); Neutrophils % (auto) 70.9 %; Nucleated RBC # (auto) 0.02 K/uL (0-0); Nucleated RBC % (auto) 0.3 %; Platelet Count 232 K/uL (130-400); RDW Coefficient of Variation 16.5 % (11.5-14.5); RDW Standard Deviation 50.1 fL (36.4-46.3); Red Blood Count 5.21 M/uL (4.2-5.4); White Blood Count 8.14 K/uL (4.8-10.8)
[2018-11-16 06:40] LABS: BUN Creatinine Ratio 31.3 (10-20); Calcium 11.4 mg/dl (8.5-10.1); Est GFR (African American) 31.8; Est GFR (Non-African American) 27.5; Potassium 4.6 mmol/L (3.5-5.1)
[2018-11-16] MEDS ORDERED: MICONAZOLE NITRATE POWDER 43 GM ONE (08:25)
[2018-11-16] MEDS: ATORVASTATIN 40 MG TAB PO SCH (08:36)
[2018-11-16] MEDS: DULOXETINE HCL 60 MG CAP PO SCH (08:37)
[2018-11-16] MEDS: lamoTRIgine 100 MG TAB PO SCH ×2 (08:37→21:55)
[2018-11-16] MEDS: DOCUSATE SODIUM 100 MG CAP PO SCH (08:37)
[2018-11-16] MEDS: NORETHINDRONE 5 MG TAB PO SCH ×2 (08:37→21:59)
[2018-11-16] MEDS: TOLTERODINE TARTRATE LA 2 MG CAPCR PO SCH (08:39)
[2018-11-16] MEDS: VITAMIN B COMPLEX TAB PO SCH (08:39)
[2018-11-16] MEDS: LUBIPROSTONE 8 MCG CAP PO SCH (08:40)
[2018-11-16] MEDS: LEVOBUNOLOL HCL 0.5% OP SOLN 5 ML BTL OP SCH ×2 (08:40→21:59)
[2018-11-16] MEDS: buPROPion HCl 75 MG TABLET PO SCH ×3 (08:40→21:53)
[2018-11-16] MEDS: LATANOPROST 0.005% OP SOLN 2.5 ML BTL OP SCH ×3 (08:40→21:59)
[2018-11-16] MEDS: POLYETHYLENE (MIRALAX) 17 GM PACK PO SCH ×2 (08:41→21:59)
[2018-11-16] MEDS: PSYLLIUM 58.6% POWDER PACKET PO SCH (08:41)
[2018-11-16] MEDS: GABAPENTIN 250 MG/5 ML 470 ML BTL PO SCH ×3 (08:43→21:58)
[2018-11-16] MEDS: METOPROLOL TARTRATE 50 MG TAB PO SCH ×2 (08:44→08:50)
[2018-11-16] MEDS: INSULIN ASPART 100 UNITS/ML 3 ML PEN SC SCH ×4 (08:57→22:01)
[2018-11-16] MEDS: SODIUM CHLORIDE 0.45 % 1,000 ML IV SCH (09:02)
--- NOTE | 2018-11-16 09:31 | Family Medicine Progress Note ---
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 She has dysphagia and an XU. She presented with complaints of chronic back pain. -CT of chest: "Extensive metastatic disease within the neck, chest, and visualized upper abdomen as described above. Dominant right peritracheal/hilar soft tissue mass measures up to 8.5 cm." -CT Head: "No acute intracranial abnormality." -ASA/Plavix stopped for 1 week for possible LIVER biopsy to determine nature of primary. -Based on primary, if small cell or lymphoma can see some benefit from immuno/ chemotherapy per heme/onc. -Heme/Onc consulted---appreciate recs: "The appearance of her scans is concerning for a malignancy, though they are limited due to a lack of IV contrast. I would get a dedicated chest CT today, to look for primary lesions. Given her upper airway symptoms, I might also consider a CT neck, though that study would be difficult to interpret without contrast. I would also consult gastroenterology to discuss her dysphagia symptoms. If a primary lesion is not immediately obvious following such a workup, the next step would likely involve a biopsy of the liver mass, though an US might be needed to better characterize the lesion first." PAIN -Gabapentin and Cymbalta for chronic pain. Cymbalta dose increased to 90mg to also help with new arm pain and anxiety related to dx. -ASA/Plavix stopped for 1 week for possible lung biopsy to likely be done outpt. ACUTE KIDNEY INJURY -IMPROVING -Likely pre-renal failure due to dehydration as Cr trending down with fluid hydration. Likely due to salt wasting (HZT use) and poor intake (anorexia) -Sodium random urine-for fractional excretion-PENDING -Continue fluids, switched to NSS today. Extra bolus given for blood pressure. -Trend BMP -Nephrotoxic meds d/c- Diclofenac, Lisionpril, HZT HYPERCALCEMIA -IMPROVING -asymptomatic currently -Could be due to paraneoplastic effect if primary cancer is small cell- PTH and Prp ordered. -On IV fluids which will treat -Will continue to assess need for calcitonin/bisphosphonate DYSPHAGIA -unchanged -CT chest shows rsn--impingement from metastatic mass -GI consult for possible scope to uncover potential causes and possible palliative stent--Appreciate recs "A 48-year-old woman with extensive metastatic disease, lymphadenopathy, but normal upper gastrointestinal series several weeks ago. I do not think an upper endoscopy is indicated in this setting, it would notadd to her care. She seems to be keeping up with her nutrition usingnutritional shakes and broth and at this point with an unclear source of herprimary, I would recommend continuing to look for her primary source to see if this can be treated and perhaps the lymphadenopathy could be improved upon, which may be contributing to some of her solid dysphagia. I discussed this with the family." -Barium swallow showed mild dysmotility-otherwise normal -Will consider rad onc consult once primary known for possible palliative radiation to help with dysphagia HYPOTENSION -Likely due to poor intake and on metoprolol 50mg. Metoprolol halved to 25mg BID today. Fluid bolus today with IV fluids NSS running Lisinopril held for XU. CHRONIC BACK PAIN -as above for pain HYPERTENSION -Lisinopril held due to effect on kidneys. -Currently HYPOtensive DM Type II -A1c-7.1 -ISS Depression -continue home meds Hypothyroidism -continue home meds Fall -related to hypoglycemia Anxiety -continue home meds CVA -Stop ASA/Plavix- for future liver biopsy Hyperlipidemia -cont home meds Fibroid -f/u outpt ROSIBEL -noncompliant with CPAP -Use bedtime O2 DVT Prophylaxis: heparin FEN/GI: Soft regular meals Dispo: Pending mets workup (2) Renal failure: (3) Hypercalcemia: (4) Swallowing difficulty: (5) Chronic back pain: (6) HTN (hypertension): (7) Fall: (8) Depression: (9) DM type 2 (diabetes mellitus, type 2): (10) CVA (cerebral vascular accident): (11) Anxiety: (12) Fibroid: (13) ROSIBEL (obstructive sleep apnea): (14) Hypothyroid: (15) Hyperlipidemia: (16) DVT prophylaxis: (17) Hypotension: Supervising Physician Co-Signing Physician Notes I personally examined the patient and verified all morrison points of history and exam, discussed case, and agree with decision making with Dr Martinez. pain controlled. dysphagia about the same. case discussed with oncology, input appreciated. CT reviewed personally as well as report. no other new HPI. having had updates from Dr Martinez and then Dr Lovett, they appear a bit overwhelmed when i am present, but i answer all questions to the best of my ability. Vitals noted, in general she appears very fatigued but is in no distress. HEENT normocephalic atraumatic mucous membranes are moist. Skin shows no rashes no pallor or icterus. Lungs unlabored no accessory muscles. Neuro shows no focal deficits Metastatic cancermost likely lung, vs possibly lymphoma. Bx liver lesion once possible - holding asa/plavix. DysphasiaCT chest sheds light on this. probably relates to mass/nodes. Painher pain appears to be under reasonable control right now. Continue current regimen, overall, but will increase cymbalta to try to help slowly w pain control and anxiety related to the situation. Renal failureit is uncertain how much of this is acute and how much is permanent. urine studies pending. is improving w fluids - continue hyponatremia - likely mixed picture - some sodium losses related to chronic diuretic (on hold) and probably some nutritional deficiency from poor oral intake given ongoing drop w rehydration fluids - will change to NSS Cerebrovascular diseasesee prior - risks/benefits ok to hold antiplatelets for biopsy DVT prophylaxisheparin subcu Subjective Pt states that her symptoms are unchanged except new onset left arm pain. Still has the dysphagia. Denies chest pain, SOB, palps, N/V, abdominal pain, diarhea/ constipation. Review of Systems All systems reviewed & are unremarkable except as noted in HPI & below Physical Exam 2 Vital Signs (Past 24 Hours): Last Vital Signs Temp 36.9 C 11/16/18 07:09 Pulse 91 H 11/16/18 07:09 Resp 20 11/16/18 07:09 BP 92/61 L 11/16/18 07:09 Pulse Ox 95 11/16/18 07:09 General: Alert, oriented. Sitting in bed. Looks older than stated age. HEENT: NC/AT, PERRL, EOMI, oropharynx moist. Chest: Nontender to palpation. CV: RRR, Normal s1, s2. No murmurs appreciated Resp:Audible stridor without stethoscope. Breath sounds clear bilaterally with some reflected stridor, no increased effort of breathing. No crackles/rhonchi/ rales. Abdomen: Mulitple healed lesions on abdomen. BS+. Soft, nontender, nondistended. No guarding. No organomegaly appreciated. Extremities: No edema. Results & Data Laboratory Results Laboratory Results - last 24 hr 11/15/18 11/15/18 11/16/18 16:38 20:25 05:51 WBC RBC Hgb Hct MCV MCH MCHC RDW Std Deviation RDW Coeff of Rayray Plt Count MPV Immature Gran % (Auto) Neut % (Auto) Lymph % (Auto) Hanson % (Auto) Eos % (Auto) Baso % (Auto) Immature Gran # (Auto) Neut # (Auto) Lymph # (Auto) Hanson # (Auto) Eos # (Auto) Baso # (Auto) Absolute Nucleated RBC Nucleated RBC % (auto) Sodium 128 L Potassium 4.6 Chloride 98 Carbon Dioxide 25 Anion Gap 5.0 BUN 65 H Creatinine 2.08 H Est Cr Clr Drug Dosing 36.0 Est GFR ( Amer) 31.8 Est GFR (Non-Af Amer) 27.5 BUN/Creatinine Ratio 31.3 H Glucose 87 POC Glucose 85 152 H Calcium 11.4 H Specimen Hemolysis Urine Color Urine Appearance Urine pH Ur Specific Means Urine Protein Urine Glucose (UA) Urine Ketones Urine Blood Urine Nitrite Urine Bilirubin Urine Urobilinogen Ur Leukocyte Esterase Urine WBC (Auto) Urine RBC (Auto) U Hyaline Cast (Auto) U Epithel Cells (Auto) Urine Bacteria (Auto) Ur Random Creatinine Ur Random Sodium 11/16/18 11/16/18 11/16/18 05:51 07:35 09:30 WBC 8.14 RBC 5.21 Hgb 14.3 Hct 43.3 MCV 83.1 MCH 27.4 MCHC 33.0 RDW Std Deviation 50.1 H RDW Coeff of Rayray 16.5 H Plt Count 232 MPV 10.3 Immature Gran % (Auto) 2.7 Neut % (Auto) 70.9 Lymph % (Auto) 18.7 Hanson % (Auto) 5.9 Eos % (Auto) 1.6 Baso % (Auto) 0.2 Immature Gran # (Auto) 0.22 H Neut # (Auto) 5.77 Lymph # (Auto) 1.52 Hanson # (Auto) 0.48 Eos # (Auto) 0.13 Baso # (Auto) 0.02 Absolute Nucleated RBC 0.02 H Nucleated RBC % (auto) 0.3 Sodium Potassium Chloride Carbon Dioxide Anion Gap BUN Creatinine Est Cr Clr Drug Dosing Est GFR ( Amer) Est GFR (Non-Af Amer) BUN/Creatinine Ratio Glucose POC Glucose 94 Calcium Specimen Hemolysis Urine Color Urine Appearance Urine pH Ur Specific Means Urine Protein Urine Glucose (UA) Urine Ketones Urine Blood Urine Nitrite Urine Bilirubin Urine Urobilinogen Ur Leukocyte Esterase Urine WBC (Auto) Urine RBC (Auto) U Hyaline Cast (Auto) U Epithel Cells (Auto) Urine Bacteria (Auto) Ur Random Creatinine 61.4 Ur Random Sodium 13 11/16/18 11/16/18 11/16/18 09:30 09:30 11:28 WBC RBC Hgb Hct MCV MCH MCHC RDW Std Deviation RDW Coeff of Rayray Plt Count MPV Immature Gran % (Auto) Neut % (Auto) Lymph % (Auto) Hanson % (Auto) Eos % (Auto) Baso % (Auto) Immature Gran # (Auto) Neut # (Auto) Lymph # (Auto) Hanson # (Auto) Eos # (Auto) Baso # (Auto) Absolute Nucleated RBC Nucleated RBC % (auto) Sodium Potassium Chloride Carbon Dioxide Anion Gap BUN Creatinine Est Cr Clr Drug Dosing Est GFR ( Amer) Est GFR (Non-Af Amer) BUN/Creatinine Ratio Glucose POC Glucose 129 H Calcium Specimen Hemolysis Urine Color Yellow Urine Appearance Cloudy H Urine pH 5.0 Ur Specific Means 1.013 Urine Protein Negative Urine Glucose (UA) Negative Urine Ketones Negative Urine Blood Negative Urine Nitrite Positive H Urine Bilirubin Negative Urine Urobilinogen Negative Ur Leukocyte Esterase 3+ H Urine WBC (Auto) >30 H Urine RBC (Auto) 0-4 U Hyaline Cast (Auto) 1-5 U Epithel Cells (Auto) >30 H Urine Bacteria (Auto) 3+ H Ur Random Creatinine Ur Random Sodium Cancelled Medications Administered Home Medications albuterol sulfate [ProAir HFA] 2 puff INHALATION Q6H PRN 10/24/18 [History Confirmed 11/14/18] amlodipine 5 mg PO DAILY 10/24/18 [History Confirmed 11/14/18] aspirin [Aspirin Low Dose] 81 mg PO DAILY 10/24/18 [History Confirmed 11/14/18] atorvastatin 80 mg PO DAILY 10/24/18 [History Confirmed 11/14/18] blood glucose control, normal [OneTouch Ultra Control] 10/24/18 [History Confirmed 11/14/18] bupropion HCl 75 mg PO TID 10/24/18 [History Confirmed 11/14/18] clopidogrel 75 mg PO DAILY 10/24/18 [History Confirmed 11/14/18] diclofenac sodium 75 mg PO BID 10/24/18 [History Confirmed 11/14/18] docusate sodium [Colace] 100 mg PO BID 10/24/18 [History Confirmed 11/14/18] duloxetine 60 mg PO DAILY 10/24/18 [History Confirmed 11/14/18] fluticasone furoate [Arnuity Ellipta] 1 inh INHALATION DAILY 10/24/18 [History Confirmed 11/14/18] furosemide 20 mg PO DAILY PRN 10/24/18 [History Confirmed 11/14/18] gabapentin 800 mg PO TID 10/24/18 [History Confirmed 11/14/18] glipizide 10 mg PO BID 10/24/18 [History Confirmed 11/14/18] ipratropium bromide 2 spray INTRANASAL BID PRN 10/24/18 [History Confirmed 11/14] lamotrigine 150 mg PO BID 10/24/18 [History Confirmed 11/14/18] levothyroxine 25 mcg PO DAILY 10/24/18 [History Confirmed 11/14/18] lidocaine [Aspercreme (lidocaine)] 1 patch TOPICAL BID 10/24/18 [History Confirmed 11/14/18] lubiprostone [Amitiza] 24 mcg PO BID 10/24/18 [History Confirmed 11/14/18] metoprolol tartrate 50 mg PO BID 10/24/18 [History Confirmed 11/14/18] pioglitazone 45 mg PO DAILY 10/24/18 [History Confirmed 11/14/18] polyethylene glycol 3350 [Miralax] 17 g PO BID 10/24/18 [History Confirmed 11/14] psyllium husk [Metamucil] 0.52 g PO DAILY 10/24/18 [History Confirmed 11/14/18] sitagliptin [Januvia] 100 mg PO DAILY 10/24/18 [History Confirmed 11/14/18] tolterodine 2 mg PO DAILY 10/24/18 [History Confirmed 11/14/18] umeclidinium-vilanterol [Anoro Ellipta] 1 inh INHALATION DAILY 10/24/18 [ History Confirmed 11/14/18] B complex-vitamin C-folic acid 1 tab PO DAILY 11/14/18 [History Confirmed ] buspirone 15 mg PO BID 11/14/18 [History Confirmed 11/14/18] hydrocodone-acetaminophen 1 tab PO TID PRN 11/14/18 [History Confirmed 11/14/18] lisinopril 20 mg PO DAILY 11/14/18 [History Confirmed 11/14/18] morphine 15 mg PO TID PRN 11/14/18 [History Confirmed 11/14/18] norethindrone acetate 5 mg PO BID 11/14/18 [History Confirmed 11/14/18] triamterene-hydrochlorothiazid 1 tab PO DAILY 11/14/18 [History Confirmed ] Active Medications Acetaminophen (Tylenol) 650 mg PO Q4H PRN PRN Reason: pain/fever Stop: 12/14/18 20:28 Hydrocodone Bitart/Acetaminophen ([place] 5/325) 1 tab PO TID PRN PRN Reason: Pain Stop: 11/28/18 20:28 Last Admin: 11/16/18 11:46 Dose: 1 tab Albuterol (Ventolin Hfa) 2 puffs INH Q6H PRN PRN Reason: Shortness Of Breath Stop: 12/14/18 21:14 Aspirin (Ecotrin Ectab) 81 mg PO DAILY [facility] Stop: 12/15/18 08:59 Last Admin: 11/15/18 09:01 Dose: 81 mg Atorvastatin Calcium (Lipitor) 80 mg PO DAILY TARA Stop: 12/15/18 08:59 Last Admin: 11/16/18 08:36 Dose: 80 mg Bupropion HCl (Wellbutrin) 75 mg PO TID TARA Stop: 12/14/18 20:59 Last Admin: 11/16/18 14:37 Dose: 75 mg Buspirone HCl (Buspar) 15 mg PO BID [facility] Stop: 12/15/18 20:59 Last Admin: 11/16/18 08:38 Dose: 15 mg Clopidogrel Bisulfate (Plavix) 75 mg PO DAILY [facility] Stop: 12/15/18 08:59 Last Admin: 11/15/18 09:02 Dose: 75 mg Dextrose (Dextrose 50%) 25 - 50 ml IV UD PRN; Protocol PRN Reason: Hypoglycemia Protocol Stop: 12/14/18 20:28 Docusate Sodium (Colace) 100 mg PO BID TARA Stop: 12/14/18 20:59 Last Admin: 11/16/18 08:37 Dose: 100 mg Duloxetine HCl (Cymbalta) 90 mg PO DAILY TARA Stop: 12/17/18 08:59 Furosemide (Lasix) 20 mg PO DAILY PRN PRN Reason: Fluid Retention Stop: 12/14/18 20:28 Last Admin: 11/15/18 09:02 Dose: 20 mg Gabapentin (Neurontin) 800 mg PO TID TARA Stop: 12/15/18 10:59 Last Admin: 11/16/18 14:38 Dose: 800 mg Glucagon (Glucagen) 1 mg SQ UD PRN; Protocol PRN Reason: Hypoglycemia Protocol Stop: 12/14/18 20:28 Glucose (Glucose 40%) 15 - 30 gm PO UD PRN; Protocol PRN Reason: Hypoglycemia Protocol Stop: 12/14/18 20:28 Glucose (Dex4 Glucose) 4 - 8 tabs PO UD PRN; Protocol PRN Reason: Hypoglycemia Protocol Stop: 12/14/18 20:28 Heparin Sodium (Porcine) (Heparin Sodium (Porcine)) 5,000 units SQ Q8 TARA Stop: 12/14/18 22:59 Last Admin: 11/16/18 14:33 Dose: 5,000 units Sodium Chloride (Nss 1000ml) 1,000 mls @ 80 mls/hr IV .[id number] [facility] Stop: 12/16/18 10:44 Last Admin: 11/16/18 11:41 Dose: 80 mls/hr Insulin Aspart (Novolog Flexpen) 0 units SC ACHS TARA Stop: 12/14/18 20:59 Last Admin: 11/16/18 13:01 Dose: 4 units Ipratropium [place] (Atrovent Nasal [place] 0.06%) 1 sprays MELISSA BID PRN PRN Reason: NASAL CONGESTION Stop: 12/14/18 21:44 Lamotrigine (Lamictal) 150 mg PO BID [facility] Stop: 12/14/18 21:29 Last Admin: 11/16/18 08:37 Dose: 150 mg Latanoprost (Xalatan Oph) 1 drops OP BID TARA Stop: 12/15/18 20:59 Last Admin: 11/16/18 09:01 Dose: Not Given Levobunolol HCl (Betagan 0.5% Oph) 1 drops OP BID [facility] Stop: 12/15/18 20:59 Last Admin: 11/16/18 08:40 Dose: 1 drops Levothyroxine Sodium (Synthroid) 25 mcg PO DAILYBB [facility] Stop: 12/15/18 06:29 Last Admin: 11/16/18 05:31 Dose: 25 mcg Lubiprostone (Amitiza) 24 mcg PO BID [facility] Stop: 12/14/18 21:59 Last Admin: 11/16/18 08:40 Dose: 24 mcg Magnesium Hydroxide (Milk Of Magnesia) 30 ml PO Q6H PRN PRN Reason: Constipation Stop: 12/14/18 20:28 Metoprolol Tartrate (Lopressor) 50 mg PO BID [facility] Stop: 12/14/18 20:59 Last Admin: 11/16/18 08:50 Dose: Not Given Miscellaneous (Order Awaiting Action) 1 ea N/A QS [facility] Stop: 12/15/18 00:00 Last Admin: 11/16/18 08:42 Dose: Not Given Miscellaneous (Carbohydrates For Hypoglycemia) 15 - 30 gm PO UD PRN PRN Reason: Hypoglycemia Treatment Stop: 12/14/18 20:28 Miscellaneous (Order Awaiting Action) 1 ea N/A QS [facility] Stop: 12/15/18 00:00 Last Admin: 11/16/18 08:54 Dose: Not Given Miscellaneous (Order Awaiting Action) 1 ea N/A QS [facility] Stop: 12/15/18 00:00 Last Admin: 11/16/18 08:42 Dose: Not Given Norethindrone (Aygestin) 5 mg PO BID [facility] Stop: 12/14/18 20:59 Last Admin: 11/16/18 08:37 Dose: 5 mg Ondansetron HCl (Zofran) 4 mg IV Q6H PRN PRN Reason: Nausea Stop: 12/14/18 20:28 Last Admin: 11/15/18 11:40 Dose: 4 mg Polyethylene Glycol (Miralax Powder Packet) 17 gm PO BID [facility] Stop: 12/14/18 20:59 Last Admin: 11/16/18 08:41 Dose: Not Given Psyllium Hydrophilic Mucilloid (Metamucil) 1 pkt PO QAM [facility] Stop: 12/15/18 08:59 Last Admin: 11/16/18 08:41 Dose: Not Given Tolterodine Tartrate (Detrol La) 2 mg PO DAILY TARA Stop: 12/15/18 08:59 Last Admin: 11/16/18 08:39 Dose: 2 mg Vitamin B Complex (Vitamin B Complex) 1 tab PO QAM TARA Stop: 12/15/18 08:59 Last Admin: 11/16/18 08:39 Dose: 1 tab Resident Activity Tracking Resident Involvement: Resident Care Provided Care Provided: Adult [facility] Medicine _ (1) Renal failure Acute renal failure type: Chronic kidney disease stage: Renal failure chronicity:
[2018-11-16 10:00] LABS: Appearance Urine Cloudy (Clear); Bacteria Urine Automated 3+ (Negative); Bilirubin Urine Negative (Negative); Color Urine Yellow; Epithelial Cell Urine Auto >30 /lpf (0-5); Glucose Urine UA Negative (Negative); Ketones Urine Negative (Negative); Leukocyte Esterase Urine 3+ (Negative); Nitrite Urine Positive (Negative); Protein Urine Negative (Negative); Specific Gravity Urine 1.013 (1.000-1.030); Urobilinogen Urine Negative (Negative); WBC Urine Automated >30 /hpf (0-5)
[2018-11-16 10:30] LABS: Creatinine Urine Random 61.4 mg/dl
[2018-11-16] MEDS: SODIUM CHLORIDE 0.9% 1000ML 1,000 ML IV SCH ×2 (11:41→23:33)
[2018-11-16] MEDS: HYDROCODONE/ACETAMOPHEN 5/325MG TAB PO PRN (11:46)
--- NOTE | 2018-11-16 13:57 | Consultation Report ---
DATE OF CONSULTATION: 11/16/2018 GASTROENTEROLOGY CONSULT REFERRED BY: Dr. Hudson. REASON FOR CONSULT: I was asked by Dr. Hudson to consult on this woman for dysphagia. HISTORY OF PRESENT ILLNESS: The patient is a 48-year-old, found to have extensive metastatic disease of unclear primary. She has had some dysphagia that she reports to large pills and some harder solid foods, but has been able to drink shakes and soups and was currently drinking a shake and having soup while I went to go see her. She denies any heartburn. She denies any vomiting currently. She had a barium swallow on 10/30/2018 that did not reveal any evidence of luminal pathology of her esophagus. There was just some evidence of mild dysmotility. I reviewed her medical records and her past medical history and her past medical history is significant for history of CVA, diabetes, depression, hypertension, hyperlipidemia. She was admitted because of her fall and workup has found extensive metastatic disease of unknown primary. PAST SURGICAL HISTORY: Not significant. FAMILY HISTORY: Negative for gastrointestinal disease. DRUG ALLERGIES: INCLUDE ARIPIPRAZOLE, CEPHALEXIN AND SULFA. OUTPATIENT MEDICATIONS: Include numerous inhalers, amlodipine, baby aspirin, atorvastatin, bupropion, clopidogrel, diclofenac, docusate, Lasix, gabapentin, glipizide, lamotrigine, levothyroxine, Amitiza, metoprolol, pioglitazone, MiraLax p.r.n., Januvia, morphine p.r.n., triamterene/hydrochlorothiazide and hydrocodone p.r.n. SOCIAL HISTORY: Significant for heavy tobacco use. She denies alcohol use. REVIEW OF SYSTEMS: She has had increasing weakness, though she denies any fevers. She denies any joint swelling, though she has had a lot of extensive lower back pain. She has had a chronic cough and symptoms of COPD. She denies diarrhea or rectal bleeding. She denies dysuria. She has had no dyspnea on exertion, though she has poor exercise tolerance and weakness. She denies anginal symptoms. Her vision and hearing have not changed. She denies any seizures. PHYSICAL EXAMINATION: GENERAL: Reveals an obese woman lying in bed with family at the bedside. VITAL SIGNS: Most recent vitals show a blood pressure of 106/68, pulse of 98, temperature is 36.4 centigrade. SKIN: Anicteric. EYES: Show anicteric sclerae. NECK: Obese, but supple. MOUTH: Clear of lesions. CHEST: Has diffuse rhonchi. ABDOMEN: Obese, but benign. There is no rebound tenderness or obvious masses felt. EXTREMITIES: Warm with fair distal pulses. NEUROLOGIC: She is alert and oriented x3. IMPRESSION AND PLAN: A 48-year-old woman with extensive metastatic disease, lymphadenopathy, but normal upper gastrointestinal series several weeks ago. I do not think an upper endoscopy is indicated in this setting, it would not add to her care. She seems to be keeping up with her nutrition using nutritional shakes and broth and at this point with an unclear source of her primary, I would recommend continuing to look for her primary source to see if this can be treated and perhaps the lymphadenopathy could be improved upon, which may be contributing to some of her solid dysphagia. I discussed this with the family.
[2018-11-16] MEDS ORDERED: SODIUM CHLORIDE 0.9% 1000ML 250 ML IV ONE (15:02)
[2018-11-16] MEDS: METOPROLOL TARTRATE 25 MG TAB PO SCH (22:25)
[2018-11-17] MEDS: LEVOTHYROXINE SODIUM 25 MCG TABLET PO SCH (05:59)
[2018-11-17] MEDS: HEPARIN SOD 5,000 UNIT/0.5 ML VIAL SQ SCH ×3 (06:00→21:29)
[2018-11-17 06:08] LABS: Basophils # (auto) 0.01 K/uL (0-0.2); Basophils % (auto) 0.1 %; Eosinophils # (auto) 0.09 K/uL (0-0.5); Hematocrit (blood only) 41.5 % (37-47); Hemoglobin 13.7 g/dL (12.0-16.0); Immature Granulocytes # (auto) 0.19 K/uL (0.00-0.02); Immature Granulocytes % (auto) 2.2 %; Lymphocytes # (auto) 1.32 K/uL (1.2-3.4); Lymphocytes % (auto) 15.3 %; Mean Corpuscular Volume 83.3 fL (80-100); Mean Platelet Volume 10.8 fL (7.4-10.4); Monocytes # (auto) 0.42 K/uL (0.11-0.59); Monocytes % (auto) 4.9 %; Neutrophils # (auto) 6.62 K/uL (1.4-6.5); Neutrophils % (auto) 76.5 %; Platelet Count 229 K/uL (130-400); RDW Coefficient of Variation 16.5 % (11.5-14.5); RDW Standard Deviation 50.4 fL (36.4-46.3); Red Blood Count 4.98 M/uL (4.2-5.4); White Blood Count 8.65 K/uL (4.8-10.8)
[2018-11-17 06:42] LABS: Albumin Level 2.2 gm/dl (3.4-5.0); BUN Creatinine Ratio 32.2 (10-20); Est GFR (Non-African American) 34.6; Potassium 4.4 mmol/L (3.5-5.1)
[2018-11-17 06:45] LABS: Albumin Globulin Ratio 0.5 (0.9-2); Bilirubin,Total 0.3 mg/dl (0.2-1); Globulin 4.7 gm/dl (2.5-4.0); Total Protein 6.9 gm/dl (6.4-8.2)
[2018-11-17] MEDS: ATORVASTATIN 40 MG TAB PO SCH (08:14)
[2018-11-17] MEDS: METOPROLOL TARTRATE 25 MG TAB PO SCH ×2 (08:15→21:29)
[2018-11-17] MEDS: lamoTRIgine 100 MG TAB PO SCH (08:15)
[2018-11-17] MEDS: NORETHINDRONE 5 MG TAB PO SCH ×2 (08:16→21:28)
[2018-11-17] MEDS: LEVOBUNOLOL HCL 0.5% OP SOLN 5 ML BTL OP SCH ×2 (08:16→21:28)
[2018-11-17] MEDS: TOLTERODINE TARTRATE LA 2 MG CAPCR PO SCH (08:17)
[2018-11-17] MEDS: VITAMIN B COMPLEX TAB PO SCH (08:17)
[2018-11-17] MEDS: buPROPion HCl 75 MG TABLET PO SCH ×3 (08:17→21:28)
[2018-11-17] MEDS ORDERED: DULOXETINE HCL 30 MG CAP PO SCH (09:00)
[2018-11-17] MEDS: POLYETHYLENE (MIRALAX) 17 GM PACK PO SCH ×2 (09:05→21:22)
[2018-11-17] MEDS: PSYLLIUM 58.6% POWDER PACKET PO SCH (09:05)
[2018-11-17] MEDS: LATANOPROST 0.005% OP SOLN 2.5 ML BTL OP SCH ×2 (09:06→21:28)
[2018-11-17] MEDS: GABAPENTIN 250 MG/5 ML 470 ML BTL PO SCH ×3 (09:08→21:22)
[2018-11-17] MEDS: INSULIN ASPART 100 UNITS/ML 3 ML PEN SC SCH ×4 (09:10→21:34)
--- NOTE | 2018-11-17 10:37 | Family Medicine Progress Note ---
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 She has dysphagia and an XU. She presented with complaints of chronic back pain. -CT of chest: "Extensive metastatic disease within the neck, chest, and visualized upper abdomen as described above. Dominant right peritracheal/hilar soft tissue mass measures up to 8.5 cm." -CT Head: "No acute intracranial abnormality." -ASA/Plavix stopped for 1 week on evening of 11/15 for possible LIVER biopsy to determine nature of primary. -Based on primary, if small cell or lymphoma can see some benefit from immuno/ chemotherapy per heme/onc. -Heme/Onc consulted---appreciate recs: "The appearance of her scans is concerning for a malignancy, though they are limited due to a lack of IV contrast. I would get a dedicated chest CT today, to look for primary lesions. Given her upper airway symptoms, I might also consider a CT neck, though that study would be difficult to interpret without contrast. I would also consult gastroenterology to discuss her dysphagia symptoms. If a primary lesion is not immediately obvious following such a workup, the next step would likely involve a biopsy of the liver mass, though an US might be needed to better characterize the lesion first." PAIN -Gabapentin and Cymbalta for chronic pain. Cymbalta dose increased to 90mg to also help with new arm pain and anxiety related to dx. -No narcotics yet since pt states pain well controlled and due to great need later, will avoid sensitization when not needed now. NEW ONSET Delirium -Differential includes depression associated psychosis vs. delirium due to clinical condition even though pt is only 48 -Psych consult placed -Will continue to follow ASYMPTOMATIC UTI -Pt denied symptoms before this new onset delirium -However with new onset delirium will treat since pt cannot voice new symptoms. -Allergic to sulfa abx, and cephalexin so Bactrim and Ceftraixone are CI. Macrobid bordeline resistant based on sensitivites. So pt placed on cipro 200BID for 3 days. ACUTE KIDNEY INJURY -IMPROVING -Likely pre-renal failure due to dehydration as Cr trending down with fluid hydration. Likely due to salt wasting (HZT use) and poor intake (anorexia) -Sodium random urine-for fractional excretion-calculated FeNa is 0.34%. So appropriate kidney response in holding onto sodium suggesting further a prerenal cause of the renal insufficiency. -Continue fluids, switched to NSS. -Trend BMP -Nephrotoxic meds d/c- Diclofenac, Lisionpril, HZT HYPERCALCEMIA -IMPROVING- trending down. -Could be due to paraneoplastic effect if primary cancer is small cell- PTH and Prp ordered-PENDING -On IV fluids which will treat. -Will continue to assess need for calcitonin/bisphosphonate- less likely now that calcium has been trending down. DYSPHAGIA -unchanged -CT chest shows likely cause--impingement from metastatic mass -GI consult for possible scope to uncover potential causes and possible palliative stent. State nothing they can contribute--Appreciate recs "A 48-year- old woman with extensive metastatic disease, lymphadenopathy, but normal upper gastrointestinal series several weeks ago. I do not think an upper endoscopy is indicated in this setting, it would notadd to her care. She seems to be keeping up with her nutrition usingnutritional shakes and broth and at this point with an unclear source of herprimary, I would recommend continuing to look for her primary source to see if this can be treated and perhaps the lymphadenopathy could be improved upon, which may be contributing to some of her solid dysphagia. I discussed this with the family." -Barium swallow showed mild dysmotility-otherwise normal -Will consider rad onc consult once primary known for possible palliative radiation to help with dysphagia HYPOTENSION IMPROVING -Likely due to poor intake and on metoprolol 50mg. Metoprolol halved to 25mg BID. Fluid bolus today with IV fluids NSS running. Consider fluid boluses as needed. Lisinopril held for XU. CHRONIC BACK PAIN -as above for pain HYPERTENSION -RESOLVED currently -Lisinopril held due to effect on kidneys. -Currently HYPOtensive DM Type II -A1c-7.1 -ISS Depression -continue home meds Hypothyroidism -continue home meds Fall -related to hypoglycemia Anxiety -continue home meds CVA -Stop ASA/Plavix- for future liver biopsy Hyperlipidemia -cont home meds Fibroid -f/u outpt ROSIBEL -noncompliant with CPAP -Use bedtime O2 DVT Prophylaxis: heparin FEN/GI:Full Liquid Carb consistent DM2 Dispo: Pending mets workup (2) Renal failure: (3) Hypercalcemia: (4) Swallowing difficulty: (5) Chronic back pain: (6) HTN (hypertension): (7) Fall: (8) Depression: (9) DM type 2 (diabetes mellitus, type 2): (10) CVA (cerebral vascular accident): (11) Anxiety: (12) Fibroid: (13) ROSIBEL (obstructive sleep apnea): (14) Hypothyroid: (15) Hyperlipidemia: (16) DVT prophylaxis: (17) Hypotension: Supervising Physician Co-Signing Physician Notes I personally examined the patient and verified all morrison points of history and exam, discussed case, and agree with decision making with Dr Martinez. more confused today, although she will wake up and note that she does not have much pain and she is not short of breath. Daughter notes that although yesterday no one had voiced any reticence about discussing the patient's situation (including the patient herself) unfortunately there is now a degree of family strife and the daughter requests that moving forward we only discussed the case with the patient, the daughter, and the . We discussed this extensively and in addition to this we felt it helpful for them to get service excellence to try to help with POA papers as well. Vitals noted, in general she appears very fatigued but is in no distress. HEENT normocephalic atraumatic mucous membranes are moist. Skin shows no rashes no pallor or icterus. Lungs unlabored no accessory muscles. Neuro shows no focal deficits. She wakes up briefly to converse and then falls asleep again. Metastatic cancermost likely lung, vs possibly lymphoma. Bx liver lesion once possible - holding asa/plavix. Will ask radiology to review films tomorrow. DysphasiaCT chest sheds light on this. probably relates to mass/nodes. Oral intake as possible, IV support as well. Nutrition consult Painher pain appears to be under reasonable control right now. Continue current regimen, overall, and follow Altered mental statusseems to fit the most with a delirium, however her acute illness burden does not seem severe enough to clearly be enough to created delirium in a woman who is her age, with no baseline dementia; and also begs the question of could she be having a depression with psychosis given how overwhelming her current situation is. Given that this is more of a rarity, will ask psych to see to assist in teasing apart the differential diagnosis. At this point treatment for both would be supportive, and obviously trying to avoid further delirogenic influences if possible. Renal failureit is uncertain how much of this is acute and how much is permanent. Fortunately her urine sodium and FENa both suggest prerenal state, and she does continue to improve with IV fluids. hyponatremia - likely mixed picture - some sodium losses related to chronic diuretic (on hold) and probably some nutritional deficiency from poor oral intake -is improving Cerebrovascular diseasesee prior - risks/benefits ok to hold antiplatelets for biopsy DVT prophylaxisheparin subcu (can hold for biopsy as well) Subjective Pt is extremely lethargic today and sometimes unresponsive to questions unless stimulated. Review of Systems Unobtainable due to cognitive status Physical Exam 2 Vital Signs (Past 24 Hours): Last Vital Signs Temp 36.7 C 11/17/18 07:07 Pulse 105 H 11/17/18 07:07 Resp 20 11/17/18 07:07 BP 104/68 11/17/18 07:07 Pulse Ox 98 11/17/18 07:07 General: Laying in bed. Unarousable except with external stimuli. HEENT: NC/AT, oropharynx moist. Chest: Nontender to palpation. CV: RRR, Normal s1, s2. No murmurs appreciated Resp: Audible stridor without stethoscope. Breath sounds clear bilaterally with some reflected stridor, no increased effort of breathing. Abdomen: Mulitple healed lesions on abdomen. BS+. Soft, nontender, nondistended. No guarding. No organomegaly appreciated. Extremities: No edema. Results & Data Laboratory Results Laboratory Results - last 24 hr 11/16/18 11/16/18 11/16/18 11:28 16:32 20:42 WBC RBC Hgb Hct MCV MCH MCHC RDW Std Deviation RDW Coeff of Rayray Plt Count MPV Immature Gran % (Auto) Neut % (Auto) Lymph % (Auto) [place] % (Auto) Eos % (Auto) Baso % (Auto) Immature Gran # (Auto) Neut # (Auto) Lymph # (Auto) [place] # (Auto) Eos # (Auto) Baso # (Auto) Sodium Potassium Chloride Carbon Dioxide Anion Gap BUN Creatinine Est Cr Clr Drug Dosing Est GFR ( Amer) Est GFR (Non-Af Amer) BUN/Creatinine Ratio Glucose POC Glucose 129 H 141 H 187 H Calcium Total Bilirubin AST ALT Alkaline Phosphatase Total Protein Albumin Globulin Albumin/Globulin Ratio 11/17/18 11/17/18 11/17/18 05:52 05:52 07:30 WBC 8.65 RBC 4.98 Hgb 13.7 Hct 41.5 MCV 83.3 MCH 27.5 MCHC 33.0 RDW Std Deviation 50.4 H RDW Coeff of Rayray 16.5 H Plt Count 229 MPV 10.8 H Immature Gran % (Auto) 2.2 Neut % (Auto) 76.5 Lymph % (Auto) 15.3 [place] % (Auto) 4.9 Eos % (Auto) 1.0 Baso % (Auto) 0.1 Immature Gran # (Auto) 0.19 H Neut # (Auto) 6.62 H Lymph # (Auto) 1.32 [place] # (Auto) 0.42 Eos # (Auto) 0.09 Baso # (Auto) 0.01 Sodium 133 L Potassium 4.4 Chloride 102 Carbon Dioxide 23 Anion Gap 8.0 BUN 55 H Creatinine 1.72 H D Est Cr Clr Drug Dosing 43.0 Est GFR ( Amer) 40.0 Est GFR (Non-Af Amer) 34.6 BUN/Creatinine Ratio 32.2 H Glucose 90 POC Glucose 95 Calcium 11.0 H Total Bilirubin 0.3 AST 59 H ALT 25 Alkaline Phosphatase 68 Total Protein 6.9 Albumin 2.2 L Globulin 4.7 H Albumin/Globulin Ratio 0.5 L Medications Administered Home Medications albuterol sulfate [ProAir HFA] 2 puff INHALATION Q6H PRN 10/24/18 [History Confirmed 11/14/18] amlodipine 5 mg PO DAILY 10/24/18 [History Confirmed 11/14/18] aspirin [Aspirin Low Dose] 81 mg PO DAILY 10/24/18 [History Confirmed 11/14/18] atorvastatin 80 mg PO DAILY 10/24/18 [History Confirmed 11/14/18] blood glucose control, normal [OneTouch Ultra Control] 10/24/18 [History Confirmed 11/14/18] bupropion HCl 75 mg PO TID 10/24/18 [History Confirmed 11/14/18] clopidogrel 75 mg PO DAILY 10/24/18 [History Confirmed 11/14/18] diclofenac sodium 75 mg PO BID 10/24/18 [History Confirmed 11/14/18] docusate sodium [Colace] 100 mg PO BID 10/24/18 [History Confirmed 11/14/18] duloxetine 60 mg PO DAILY 10/24/18 [History Confirmed 11/14/18] fluticasone furoate [Arnuity Ellipta] 1 inh INHALATION DAILY 10/24/18 [History Confirmed 11/14/18] furosemide 20 mg PO DAILY PRN 10/24/18 [History Confirmed 11/14/18] gabapentin 800 mg PO TID 10/24/18 [History Confirmed 11/14/18] glipizide 10 mg PO BID 10/24/18 [History Confirmed 11/14/18] ipratropium bromide 2 spray INTRANASAL BID PRN 10/24/18 [History Confirmed 11/14] lamotrigine 150 mg PO BID 10/24/18 [History Confirmed 11/14/18] levothyroxine 25 mcg PO DAILY 10/24/18 [History Confirmed 11/14/18] lidocaine [Aspercreme (lidocaine)] 1 patch TOPICAL BID 10/24/18 [History Confirmed 11/14/18] lubiprostone [Amitiza] 24 mcg PO BID 10/24/18 [History Confirmed 11/14/18] metoprolol tartrate 50 mg PO BID 10/24/18 [History Confirmed 11/14/18] pioglitazone 45 mg PO DAILY 10/24/18 [History Confirmed 11/14/18] polyethylene glycol 3350 [Miralax] 17 g PO BID 10/24/18 [History Confirmed 11/14] psyllium husk [Metamucil] 0.52 g PO DAILY 10/24/18 [History Confirmed 11/14/18] sitagliptin [Januvia] 100 mg PO DAILY 10/24/18 [History Confirmed 11/14/18] tolterodine 2 mg PO DAILY 10/24/18 [History Confirmed 11/14/18] umeclidinium-vilanterol [Anoro Ellipta] 1 inh INHALATION DAILY 10/24/18 [ History Confirmed 11/14/18] B complex-vitamin C-folic acid 1 tab PO DAILY 11/14/18 [History Confirmed ] buspirone 15 mg PO BID 11/14/18 [History Confirmed 11/14/18] hydrocodone-acetaminophen 1 tab PO TID PRN 11/14/18 [History Confirmed 11/14/18] lisinopril 20 mg PO DAILY 11/14/18 [History Confirmed 11/14/18] morphine 15 mg PO TID PRN 11/14/18 [History Confirmed 11/14/18] norethindrone acetate 5 mg PO BID 11/14/18 [History Confirmed 11/14/18] triamterene-hydrochlorothiazid 1 tab PO DAILY 11/14/18 [History Confirmed ] Active Medications Acetaminophen (Tylenol) 650 mg PO Q4H PRN PRN Reason: pain/fever Stop: 12/14/18 20:28 Hydrocodone Bitart/Acetaminophen ([place] 5/325) 1 tab PO TID PRN PRN Reason: Pain Stop: 11/28/18 20:28 Last Admin: 11/16/18 11:46 Dose: 1 tab Albuterol (Ventolin Hfa) 2 puffs INH Q6H PRN PRN Reason: Shortness Of Breath Stop: 12/14/18 21:14 Aspirin (Ecotrin Ectab) 81 mg PO DAILY [facility] Stop: 12/15/18 08:59 Last Admin: 11/15/18 09:01 Dose: 81 mg Atorvastatin Calcium (Lipitor) 80 mg PO DAILY [facility] Stop: 12/15/18 08:59 Last Admin: 11/17/18 08:14 Dose: 80 mg Bupropion HCl (Wellbutrin) 75 mg PO TID [facility] Stop: 12/14/18 20:59 Last Admin: 11/17/18 08:17 Dose: 75 mg Buspirone HCl (Buspar) 15 mg PO BID [facility] Stop: 12/15/18 20:59 Last Admin: 11/17/18 08:14 Dose: 15 mg Clopidogrel Bisulfate (Plavix) 75 mg PO DAILY [facility] Stop: 12/15/18 08:59 Last Admin: 11/15/18 09:02 Dose: 75 mg Dextrose (Dextrose 50%) 25 - 50 ml IV UD PRN; Protocol PRN Reason: Hypoglycemia Protocol Stop: 12/14/18 20:28 Docusate Sodium (Colace) 100 mg PO BID [facility] Stop: 12/14/18 20:59 Last Admin: 11/16/18 08:37 Dose: 100 mg Duloxetine HCl (Cymbalta) 90 mg PO DAILY [facility] Stop: 12/17/18 08:59 Last Admin: 11/17/18 08:14 Dose: 90 mg Furosemide (Lasix) 20 mg PO DAILY PRN PRN Reason: Fluid Retention Stop: 12/14/18 20:28 Last Admin: 11/15/18 09:02 Dose: 20 mg Gabapentin (Neurontin) 800 mg PO TID [facility] Stop: 12/15/18 10:59 Last Admin: 11/17/18 09:08 Dose: 800 mg Glucagon (Glucagen) 1 mg SQ UD PRN; Protocol PRN Reason: Hypoglycemia Protocol Stop: 12/14/18 20:28 Glucose (Glucose 40%) 15 - 30 gm PO UD PRN; Protocol PRN Reason: Hypoglycemia Protocol Stop: 12/14/18 20:28 Glucose (Dex4 Glucose) 4 - 8 tabs PO UD PRN; Protocol PRN Reason: Hypoglycemia Protocol Stop: 12/14/18 20:28 Heparin Sodium (Porcine) (Heparin Sodium (Porcine)) 5,000 units SQ Q8 [facility] Stop: 12/14/18 22:59 Last Admin: 11/17/18 06:00 Dose: 5,000 units Sodium Chloride (Nss 1000ml) 1,000 mls @ 80 mls/hr IV .[id number] [facility] Stop: 12/16/18 10:44 Last Infusion: 11/17/18 06:48 Dose: 80 mls/hr Insulin Aspart (Novolog Flexpen) 0 units SC ACHS [facility] Stop: 12/14/18 20:59 Last Admin: 11/17/18 09:10 Dose: 3 units Ipratropium Alda (Atrovent Nasal [place] 0.06%) 1 sprays MELISSA BID PRN PRN Reason: NASAL CONGESTION Stop: 12/14/18 21:44 Lamotrigine (Lamictal) 150 mg PO BID [facility] Stop: 12/14/18 21:29 Last Admin: 11/17/18 08:15 Dose: 150 mg Latanoprost (Xalatan Oph) 1 drops OP BID [facility] Stop: 12/15/18 20:59 Last Admin: 11/17/18 09:06 Dose: Not Given Levobunolol HCl (Betagan 0.5% Oph) 1 drops OP BID [facility] Stop: 12/15/18 20:59 Last Admin: 11/17/18 08:16 Dose: 1 drops Levothyroxine Sodium (Synthroid) 25 mcg PO DAILYBB [facility] Stop: 12/15/18 06:29 Last Admin: 11/17/18 05:59 Dose: 25 mcg Lubiprostone (Amitiza) 24 mcg PO BID [facility] Stop: 12/14/18 21:59 Last Admin: 11/16/18 08:40 Dose: 24 mcg Magnesium Hydroxide (Milk Of Magnesia) 30 ml PO Q6H PRN PRN Reason: Constipation Stop: 12/14/18 20:28 Metoprolol Tartrate (Lopressor) 25 mg PO BID [facility] Stop: 12/16/18 20:59 Last Admin: 11/17/18 08:15 Dose: 25 mg Miscellaneous (Order Awaiting Action) 1 ea N/A QS [facility] Stop: 12/15/18 00:00 Last Admin: 11/17/18 08:16 Dose: Not Given Miscellaneous (Carbohydrates For Hypoglycemia) 15 - 30 gm PO UD PRN PRN Reason: Hypoglycemia Treatment Stop: 12/14/18 20:28 Miscellaneous (Order Awaiting Action) 1 ea N/A QS [facility] Stop: 12/15/18 00:00 Last Admin: 11/17/18 09:20 Dose: 1 ea Miscellaneous (Order Awaiting Action) 1 ea N/A QS [facility] Stop: 12/15/18 00:00 Last Admin: 11/17/18 08:16 Dose: Not Given Norethindrone (Aygestin) 5 mg PO BID [facility] Stop: 12/14/18 20:59 Last Admin: 11/17/18 08:16 Dose: 5 mg Ondansetron HCl (Zofran) 4 mg IV Q6H PRN PRN Reason: Nausea Stop: 12/14/18 20:28 Last Admin: 11/15/18 11:40 Dose: 4 mg Polyethylene Glycol (Miralax Powder Packet) 17 gm PO BID [facility] Stop: 12/14/18 20:59 Last Admin: 11/17/18 09:05 Dose: Not Given Psyllium Hydrophilic Mucilloid (Metamucil) 1 pkt PO QAM [facility] Stop: 12/15/18 08:59 Last Admin: 11/17/18 09:05 Dose: Not Given Tolterodine Tartrate (Detrol La) 2 mg PO DAILY [facility] Stop: 12/15/18 08:59 Last Admin: 11/17/18 08:17 Dose: 2 mg Vitamin B Complex (Vitamin B Complex) 1 tab PO QAM [facility] Stop: 12/15/18 08:59 Last Admin: 11/17/18 08:17 Dose: 1 tab Resident Activity Tracking Resident Involvement: Resident Care Provided Care Provided: Adult Hospital Medicine _ (1) Renal failure Acute renal failure type: Chronic kidney disease stage: Renal failure chronicity:
[2018-11-17] MEDS: SODIUM CHLORIDE 0.9% 1000ML 1,000 ML IV SCH (11:50)
[2018-11-17] MEDS: HYDROCODONE/ACETAMOPHEN 5/325MG TAB PO PRN (13:28)
[2018-11-17] MEDS: ACETAMINOPHEN 325 MG TAB PO PRN (18:33)
[2018-11-17] MEDS: LOPERAMIDE HCL 2 MG CAP PO PRN (21:28)
[2018-11-17] MEDS: CIPROFLOXACIN / D5W 200 MG/100 ML BAG IV SCH (21:35)
[2018-11-18] MEDS: SODIUM CHLORIDE 0.9% 1000ML 1,000 ML IV SCH ×3 (00:19→23:29)
[2018-11-18] MEDS: ACETAMINOPHEN 325 MG TAB PO PRN ×3 (00:20→23:32)
[2018-11-18] MEDS: HEPARIN SOD 5,000 UNIT/0.5 ML VIAL SQ SCH ×3 (05:47→21:43)
[2018-11-18] MEDS: LEVOTHYROXINE SODIUM 25 MCG TABLET PO SCH (05:48)
[2018-11-18 06:29] LABS: Basophils # (auto) 0.03 K/uL (0-0.2); Basophils % (auto) 0.4 %; Eosinophils # (auto) 0.12 K/uL (0-0.5); Eosinophils % (auto) 1.5 %; Hematocrit (blood only) 41.9 % (37-47); Hemoglobin 13.8 g/dL (12.0-16.0); Immature Granulocytes # (auto) 0.38 K/uL (0.00-0.02); Immature Granulocytes % (auto) 4.7 %; Lymphocytes # (auto) 1.39 K/uL (1.2-3.4); Lymphocytes % (auto) 17.4 %; Mean Corpuscular Hgb Conc 32.9 g/dL (32-36); Mean Corpuscular Volume 84.5 fL (80-100); Mean Platelet Volume 10.2 fL (7.4-10.4); Monocytes # (auto) 0.45 K/uL (0.11-0.59); Monocytes % (auto) 5.6 %; Neutrophils # (auto) 5.64 K/uL (1.4-6.5); Neutrophils % (auto) 70.4 %; Platelet Count 210 K/uL (130-400); RDW Coefficient of Variation 16.7 % (11.5-14.5); RDW Standard Deviation 51.2 fL (36.4-46.3); Red Blood Count 4.96 M/uL (4.2-5.4); White Blood Count 8.01 K/uL (4.8-10.8)
[2018-11-18 06:59] LABS: BUN Creatinine Ratio 29.5 (10-20); Calcium 10.8 mg/dl (8.5-10.1); Creatinine Clr Calc Pharmacy 57.6 ml/min; Est GFR (African American) 55.2; Est GFR (Non-African American) 47.6; Potassium 4.5 mmol/L (3.5-5.1)
[2018-11-18] MEDS: CIPROFLOXACIN / D5W 200 MG/100 ML BAG IV SCH ×2 (09:08→21:38)
[2018-11-18] MEDS: INSULIN ASPART 100 UNITS/ML 3 ML PEN SC SCH ×4 (09:09→21:16)
[2018-11-18] MEDS: ATORVASTATIN 40 MG TAB PO SCH (09:11)
[2018-11-18] MEDS: DULOXETINE HCL 60 MG CAP PO SCH (09:13)
[2018-11-18] MEDS: lamoTRIgine 100 MG TAB PO SCH (09:14)
[2018-11-18] MEDS: PSYLLIUM 58.6% POWDER PACKET PO SCH (09:15)
[2018-11-18] MEDS: POLYETHYLENE (MIRALAX) 17 GM PACK PO SCH ×2 (09:15→21:39)
[2018-11-18] MEDS: NORETHINDRONE 5 MG TAB PO SCH ×2 (09:16→21:38)
[2018-11-18] MEDS: TOLTERODINE TARTRATE LA 2 MG CAPCR PO SCH (09:18)
[2018-11-18] MEDS: VITAMIN B COMPLEX TAB PO SCH (09:19)
[2018-11-18] MEDS: buPROPion HCl 75 MG TABLET PO SCH ×2 (09:20→21:39)
[2018-11-18] MEDS: GABAPENTIN 250 MG/5 ML 470 ML BTL PO SCH ×3 (09:22→21:38)
[2018-11-18] MEDS: METOPROLOL TARTRATE 25 MG TAB PO SCH ×2 (09:23→21:40)
[2018-11-18] MEDS: LEVOBUNOLOL HCL 0.5% OP SOLN 5 ML BTL OP SCH ×2 (10:31→21:41)
[2018-11-18] MEDS: LATANOPROST 0.005% OP SOLN 2.5 ML BTL OP SCH ×2 (10:31→21:41)
[2018-11-18] MEDS: HYDROCODONE/ACETAMOPHEN 5/325MG TAB PO PRN (12:33)
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
--- NOTE | 2018-11-18 17:52 | Family Medicine Progress Note ---
Date of Service November 18, 2018 Assessment & Plan (1) Delirium: 48yo with a complex PMHx with significant metastasis to chest, liver and bones from an unknown primary tumor, likely lung. She has dysphagia and an XU. She presented with complaints of chronic back pain. 1) Metastatic lesion -CT of chest: "Extensive metastatic disease within the neck, chest, and visualized upper abdomen as described above. Dominant right peritracheal/hilar soft tissue mass measures up to 8.5 cm." -CT Head: No acute intracranial abnormality. -Antiplatelets on hold on evening of 11/15 for possible Liver biopsy to determine nature of primary. Based on primary, if small cell or lymphoma can see some benefit from immuno/chemotherapy per heme/onc -rads: liver biopsy vs supraclavicular node biopsy. Will discuss with heme/onc 2) Dysphagia -CT chest shows likely cause--impingement from metastatic mass -GI consult: Normal upper gastrointestinal series several weeks ago. Upper endoscopy is not indicated in this setting, it would not add to her care. Tolerating PO intake with broths/shakes. Cont to look for her primary source to see if this can be treated as lymphadenopathy may be contributing to some of her solid dysphagia -Barium swallow showed mild dysmotility-otherwise normal 3) Chronic Pain -Gabapentin and Cymbalta for chronic pain. Cymbalta dose increased to 90mg to also help with new arm pain and anxiety related to dx -hold narcotics given it contributes to pt's delirium especially at night 4) Delirium -cognition improved today -Psych consult : Likely 2/2 to use of opiates, change in environment, multiple medical conditions including metastatic cancer, UTI. 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 Should return to see Dr. Chatterjee at [facility] upon discharge -Continue to follow 5) UTI -Pt denied symptoms before this new onset delirium -Allergic to sulfa abx, and cephalexin so Bactrim and Ceftraixone are CI. Macrobid bordeline resistant based on sensitivites. So pt placed on cipro 200BID for 3 days. -monitor for resolution of delirium on antibiotics 6) XU - likely sec to poor oral intake -Improving. Cr 1.32 today -Likely pre-renal failure due to dehydration as Cr trending down with fluid hydration. Likely due to salt wasting (HZT use) and poor intake (anorexia) -Sodium random urine-for fractional excretion-calculated FeNa is 0.34%. So appropriate kidney response in holding onto sodium suggesting further a prerenal cause of the renal insufficiency. -Continue fluids, switched to NSS. -Nephrotoxic meds d/c- Diclofenac, Lisionpril, HZT 7) Hypercalcemia -Improving- trending down today 10.8 -Could be due to paraneoplastic effect if primary cancer is small cell -On IV fluids which will treat 8) DM Type II -A1c-7.1 -ISS 10) Hypothyroidism -continue home meds 11) Hx of CVA -Holding ASA/Plavix- for future liver biopsy. Unsure why on both. Will keep her only one agent on discharge. 12) HLD -cont home meds 13) ROSIBEL -noncompliant with CPAP -Use bedtime O2 - no sign of CO2 retension. FEN/GI:Full Liquid Carb consistent DM2 FULL NO MECH VENT DVT Prophylaxis: heparin Dispo: Pending mets workup Supervising Physician Co-Signing Physician Notes Resident Physician Supervision Note: I independently interviewed and examined the patient and verified the morrison history and physical, reviewed labs and image studies, discussed the case with the resident Dr. Ching and agree with the findings and care plan. Subjective 48 y/o F found in bed this morning looking very lethargic. Pt's daughter reports no acute overnight events. Pt tolerating PO intake of shakes and broth and thinks she will be able to handle mashed potatoes. No issues voiding. Pt unable to ambulate. Pt reports no other acute concerns or complaints. Review of Systems All systems reviewed & are unremarkable except as noted in HPI & below Physical Exam 2 Vital Signs (Past 24 Hours): Last Vital Signs Temp 36.4 C L 11/18/18 15:03 Pulse 98 H 11/18/18 15:03 Resp 22 11/18/18 15:03 BP 115/87 11/18/18 15:03 Pulse Ox 94 11/18/18 15:03 Constitutional: WD/WN, vitals as above + obese fatigued Eyes: PERRL, conjunctivae normal, anicteric sclerae ENMT: external ear and nose normal, oropharynx normal Respiratory: Audible stridor without stethoscope Cardiovascular: RRR, no murmur, no edema Gastrointestinal (Abdomen): normal bowel sounds, soft, nontender, no hepatosplenomegaly Skin: no rashes, warm and dry Psychiatric: Affect: + flat affect Results & Data Laboratory Results Laboratory Results - last 24 hr 11/17/18 11/17/18 11/18/18 20:15 20:16 06:09 WBC 8.01 RBC 4.96 Hgb 13.8 Hct 41.9 MCV 84.5 MCH 27.8 MCHC 32.9 RDW Std Deviation 51.2 H RDW Coeff of Rayray 16.7 H Plt Count 210 MPV 10.2 Immature Gran % (Auto) 4.7 Neut % (Auto) 70.4 Lymph % (Auto) 17.4 [place] % (Auto) 5.6 Eos % (Auto) 1.5 Baso % (Auto) 0.4 Immature Gran # (Auto) 0.38 H Neut # (Auto) 5.64 Lymph # (Auto) 1.39 [place] # (Auto) 0.45 Eos # (Auto) 0.12 Baso # (Auto) 0.03 Sodium Potassium Chloride Carbon Dioxide Anion Gap BUN Creatinine Est Cr Clr Drug Dosing Est GFR ( Amer) Est GFR (Non-Af Amer) BUN/Creatinine Ratio Glucose POC Glucose 138 H Calcium Ammonia Stl C. diff Tox B Gene Neg C.diff Toxin B 11/18/18 11/18/18 11/18/18 06:09 07:51 11:31 WBC RBC Hgb Hct MCV MCH MCHC RDW Std Deviation RDW Coeff of Rayray Plt Count MPV Immature Gran % (Auto) Neut % (Auto) Lymph % (Auto) [place] % (Auto) Eos % (Auto) Baso % (Auto) Immature Gran # (Auto) Neut # (Auto) Lymph # (Auto) [place] # (Auto) Eos # (Auto) Baso # (Auto) Sodium 138 Potassium 4.5 Chloride 105 Carbon Dioxide 27 Anion Gap 5.0 BUN 39 H Creatinine 1.32 H D Est Cr Clr Drug Dosing 57.6 Est GFR ( Amer) 55.2 Est GFR (Non-Af Amer) 47.6 BUN/Creatinine Ratio 29.5 H Glucose 92 POC Glucose 115 H 100 H Calcium 10.8 H Ammonia Stl C. diff Tox B Gene 11/18/18 11/18/18 14:38 16:38 WBC RBC Hgb Hct MCV MCH MCHC RDW Std Deviation RDW Coeff of Rayray Plt Count MPV Immature Gran % (Auto) Neut % (Auto) Lymph % (Auto) [place] % (Auto) Eos % (Auto) Baso % (Auto) Immature Gran # (Auto) Neut # (Auto) Lymph # (Auto) [place] # (Auto) Eos # (Auto) Baso # (Auto) Sodium Potassium Chloride Carbon Dioxide Anion Gap BUN Creatinine Est Cr Clr Drug Dosing Est GFR ( Amer) Est GFR (Non-Af Amer) BUN/Creatinine Ratio Glucose POC Glucose 109 H Calcium Ammonia 48.0 H Stl C. diff Tox B Gene Medications Administered Current Inpatient Medications Acetaminophen (Tylenol) 650 mg PO Q4H PRN PRN Reason: pain/fever Stop: 12/14/18 20:28 Last Admin: 11/18/18 05:51 Dose: 650 mg Hydrocodone Bitart/Acetaminophen ([place] 5/325) 1 tab PO TID PRN PRN Reason: Pain Stop: 11/28/18 20:28 Last Admin: 11/18/18 12:33 Dose: 1 tab Albuterol (Ventolin Hfa) 2 puffs INH Q6H PRN PRN Reason: Shortness Of Breath Stop: 12/14/18 21:14 Aspirin (Ecotrin Ectab) 81 mg PO DAILY TARA Stop: 12/15/18 08:59 Last Admin: 11/15/18 09:01 Dose: 81 mg Atorvastatin Calcium (Lipitor) 80 mg PO DAILY TARA Stop: 12/15/18 08:59 Last Admin: 11/18/18 09:11 Dose: 80 mg Bupropion HCl (Wellbutrin) 75 mg PO BID TARA Stop: 12/17/18 20:59 Last Admin: 11/18/18 09:20 Dose: 75 mg Buspirone HCl (Buspar) 15 mg PO DAILY TARA Stop: 12/18/18 08:59 Last Admin: 11/18/18 09:18 Dose: 15 mg Clopidogrel Bisulfate (Plavix) 75 mg PO DAILY TARA Stop: 12/15/18 08:59 Last Admin: 11/15/18 09:02 Dose: 75 mg Dextrose (Dextrose 50%) 25 - 50 ml IV UD PRN; Protocol PRN Reason: Hypoglycemia Protocol Stop: 12/14/18 20:28 Docusate Sodium (Colace) 100 mg PO BID TARA Stop: 12/14/18 20:59 Last Admin: 11/16/18 08:37 Dose: 100 mg Duloxetine HCl (Cymbalta) 60 mg PO DAILY TARA Stop: 12/18/18 08:59 Last Admin: 11/18/18 09:13 Dose: 60 mg Furosemide (Lasix) 20 mg PO DAILY PRN PRN Reason: Fluid Retention Stop: 12/14/18 20:28 Last Admin: 11/15/18 09:02 Dose: 20 mg Gabapentin (Neurontin) 800 mg PO TID TARA Stop: 12/15/18 10:59 Last Admin: 11/18/18 14:02 Dose: 800 mg Glucagon (Glucagen) 1 mg SQ UD PRN; Protocol PRN Reason: Hypoglycemia Protocol Stop: 12/14/18 20:28 Glucose (Glucose 40%) 15 - 30 gm PO UD PRN; Protocol PRN Reason: Hypoglycemia Protocol Stop: 12/14/18 20:28 Glucose (Dex4 Glucose) 4 - 8 tabs PO UD PRN; Protocol PRN Reason: Hypoglycemia Protocol Stop: 12/14/18 20:28 Heparin Sodium (Porcine) (Heparin Sodium (Porcine)) 5,000 units SQ Q8 TARA Stop: 12/14/18 22:59 Last Admin: 11/18/18 13:08 Dose: 5,000 units Sodium Chloride (Nss 1000ml) 1,000 mls @ 80 mls/hr IV .[id number] [facility] Stop: 12/16/18 10:44 Last Admin: 11/18/18 12:36 Dose: 80 mls/hr Ciprofloxacin Lactate (Cipro / D5w) 200 mg in 100 mls @ 100 mls/hr IV Q12 TARA Stop: 11/20/18 20:59 Last Infusion: 11/18/18 10:08 Dose: Infused Insulin Aspart (Novolog Flexpen) 0 units SC ACHS [facility] Stop: 12/14/18 20:59 Last Admin: 11/18/18 13:06 Dose: 6 units Ipratropium [place] (Atrovent Nasal [place] 0.06%) 1 sprays MELISSA BID PRN PRN Reason: NASAL CONGESTION Stop: 12/14/18 21:44 Lamotrigine (Lamictal) 150 mg PO DAILY [facility] Stop: 12/18/18 08:59 Last Admin: 11/18/18 09:14 Dose: 150 mg Latanoprost (Xalatan Oph) 1 drops OP BID [facility] Stop: 12/15/18 20:59 Last Admin: 11/18/18 10:31 Dose: Not Given Levobunolol HCl (Betagan 0.5% Oph) 1 drops OP BID [facility] Stop: 12/15/18 20:59 Last Admin: 11/18/18 10:31 Dose: Not Given Levothyroxine Sodium (Synthroid) 25 mcg PO DAILYBB TARA Stop: 12/15/18 06:29 Last Admin: 11/18/18 05:48 Dose: 25 mcg Loperamide HCl (Imodium) 2 mg PO Q3H PRN PRN Reason: Diarrhea Stop: 12/17/18 20:16 Last Admin: 11/17/18 21:28 Dose: 2 mg Lubiprostone (Amitiza) 24 mcg PO BID [facility] Stop: 12/14/18 21:59 Last Admin: 11/16/18 08:40 Dose: 24 mcg Magnesium Hydroxide (Milk Of Magnesia) 30 ml PO Q6H PRN PRN Reason: Constipation Stop: 12/14/18 20:28 Metoprolol Tartrate (Lopressor) 25 mg PO BID [facility] Stop: 12/16/18 20:59 Last Admin: 11/18/18 09:23 Dose: 25 mg Miscellaneous (Order Awaiting Action) 1 ea N/A QS [facility] Stop: 12/15/18 00:00 Last Admin: 11/18/18 16:36 Dose: Not Given Miscellaneous (Carbohydrates For Hypoglycemia) 15 - 30 gm PO UD PRN PRN Reason: Hypoglycemia Treatment Stop: 12/14/18 20:28 Miscellaneous (Order Awaiting Action) 1 ea N/A QS [facility] Stop: 12/15/18 00:00 Last Admin: 11/18/18 16:36 Dose: Not Given Miscellaneous (Order Awaiting Action) 1 ea N/A QS [facility] Stop: 12/15/18 00:00 Last Admin: 11/18/18 16:36 Dose: Not Given Norethindrone (Aygestin) 5 mg PO BID [facility] Stop: 12/14/18 20:59 Last Admin: 11/18/18 09:16 Dose: 5 mg Ondansetron HCl (Zofran) 4 mg IV Q6H PRN PRN Reason: Nausea Stop: 12/14/18 20:28 Last Admin: 11/15/18 11:40 Dose: 4 mg Polyethylene Glycol (Miralax Powder Packet) 17 gm PO BID [facility] Stop: 12/14/18 20:59 Last Admin: 11/18/18 09:15 Dose: Not Given Psyllium Hydrophilic Mucilloid (Metamucil) 1 pkt PO QAM [facility] Stop: 12/15/18 08:59 Last Admin: 11/18/18 09:15 Dose: Not Given Tolterodine Tartrate (Detrol La) 2 mg PO DAILY [facility] Stop: 12/15/18 08:59 Last Admin: 11/18/18 09:18 Dose: 2 mg Vitamin B Complex (Vitamin B Complex) 1 tab PO QAM [facility] Stop: 12/15/18 08:59 Last Admin: 11/18/18 09:19 Dose: 1 tab Resident Activity Tracking Resident Involvement: Resident Care Provided Care Provided: Adult Hospital Medicine
[2018-11-18] MEDS: LOPERAMIDE HCL 2 MG CAP PO PRN (18:22)
[2018-11-19] MEDS: HYDROCODONE/ACETAMOPHEN 5/325MG TAB PO PRN ×2 (06:17→17:57)
[2018-11-19] MEDS: HEPARIN SOD 5,000 UNIT/0.5 ML VIAL SQ SCH ×3 (06:21→21:10)
[2018-11-19] MEDS: LEVOTHYROXINE SODIUM 25 MCG TABLET PO SCH (06:22)
[2018-11-19] MEDS: GABAPENTIN 250 MG/5 ML 470 ML BTL PO SCH ×3 (09:12→21:07)
[2018-11-19 09:31] LABS: Est GFR (African American) 81.1; Potassium 4.3 mmol/L (3.5-5.1)
[2018-11-19 09:32] LABS: BUN Creatinine Ratio 24.7 (10-20); Calcium 10.2 mg/dl (8.5-10.1); Creatinine Clr Calc Pharmacy 80.4 ml/min; Est GFR (Non-African American) 69.9
[2018-11-19] MEDS: CIPROFLOXACIN / D5W 200 MG/100 ML BAG IV SCH ×2 (09:33→21:07)
[2018-11-19] MEDS: POLYETHYLENE (MIRALAX) 17 GM PACK PO SCH ×2 (09:34→21:10)
[2018-11-19] MEDS: SODIUM CHLORIDE 0.9% 1000ML 1,000 ML IV SCH (09:34)
[2018-11-19] MEDS: PSYLLIUM 58.6% POWDER PACKET PO SCH (09:34)
[2018-11-19] MEDS: LEVOBUNOLOL HCL 0.5% OP SOLN 5 ML BTL OP SCH ×2 (09:44→21:09)
[2018-11-19] MEDS: LATANOPROST 0.005% OP SOLN 2.5 ML BTL OP SCH ×2 (09:45→21:09)
[2018-11-19] MEDS: INSULIN ASPART 100 UNITS/ML 3 ML PEN SC SCH ×4 (09:46→21:10)
[2018-11-19] MEDS: buPROPion HCl 75 MG TABLET PO SCH ×2 (11:41→21:09)
[2018-11-19] MEDS: METOPROLOL TARTRATE 25 MG TAB PO SCH ×2 (11:41→21:07)
[2018-11-19] MEDS: NORETHINDRONE 5 MG TAB PO SCH ×2 (11:41→21:07)
--- NOTE | 2018-11-19 12:07 | Ultrasound Report ---
US GUIDED FNA OF 1.4 CM OMENTAL NODULE CLINICAL HISTORY: Possible liver biopsy COMPARISON STUDY: CT of the abdomen and pelvis November 14, 2018. PROCEDURE: Sonography of the upper abdomen demonstrated the 1.4 cm upper omental nodule which was earle wn on CT of November 14, 2018. This was targeted for biopsy. The right hepatic lobe lesion was not wel l visualized and therefore the omental nodule was targeted. The procedure, risks and benefits were di scussed with the patient and her family. The patient agreed to the procedure and informed written con sent was obtained. The procedure was performed by Dr. Perry following a timeout. Skin was prepped and draped in sterile fashion and local anesthesia was achieved with 1% lidocaine. Under direct ultr asound guidance, 2 22-gauge fine needle aspiration were performed utilizing Prema needles. Samples were deemed preliminarily adequate by pathology. The patient tolerated the procedure well and no imm ediate complications were evident. IMPRESSION: Successful ultrasound guided fine needle aspiration of a 1.4 cm upper omental nodule. Electronically signed by: Johnie Perry M.D. 11/19/2018 12:06 PM
[2018-11-19] MEDS: lamoTRIgine 100 MG TAB PO SCH (12:32)
[2018-11-19] MEDS: DULOXETINE HCL 60 MG CAP PO SCH (12:32)
[2018-11-19] MEDS: TOLTERODINE TARTRATE LA 2 MG CAPCR PO SCH (12:33)
[2018-11-19] MEDS: VITAMIN B COMPLEX TAB PO SCH (12:33)
[2018-11-19] MEDS: ATORVASTATIN 40 MG TAB PO SCH (12:33)
--- NOTE | 2018-11-19 13:27 | Family Medicine Progress Note ---
Date of Service November 19, 2018 Assessment & Plan (1) Delirium: 48yo with a complex PMHx with significant metastasis to chest, liver and bones from an unknown primary tumor, likely lung. She has dysphagia and an XU. She presented with complaints of chronic back pain. 1) Metastatic lesion -CT of chest: "Extensive metastatic disease within the neck, chest, and visualized upper abdomen as described above. Dominant right peritracheal/hilar soft tissue mass measures up to 8.5 cm." -CT Head: No acute intracranial abnormality. -Antiplatelets on hold on evening of 11/15 for possible Liver biopsy to determine nature of primary. Based on primary, if small cell or lymphoma can see some benefit from immuno/chemotherapy per heme/onc -rads: Successful ultrasound guided fine needle aspiration of a 1.4 cm upper omental nodule. Awaiting pathology results. Per radiology, results around sunday. 2) Dysphagia -CT chest shows likely cause--impingement from metastatic mass -GI consult: Normal upper gastrointestinal series several weeks ago. Upper endoscopy is not indicated in this setting, it would not add to her care. Tolerating PO intake with broths/shakes. Cont to look for her primary source to see if this can be treated as lymphadenopathy may be contributing to some of her solid dysphagia -Barium swallow showed mild dysmotility-otherwise normal 3) Chronic Pain -Gabapentin and Cymbalta for chronic pain. Cymbalta dose increased to 90mg to also help with new arm pain and anxiety related to dx -10/10 pain today. Hydrocodone resumed as likely not a cause of her acute delirium given that she tolerated well in past. Not scheduled, prn. 4) Delirium -cognition improved today -Psych consult : Likely 2/2 to use of opiates, change in environment, multiple medical conditions including metastatic cancer, UTI. 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 Should return to see Dr. Chatterjee at [facility] upon discharge -Continue to follow 5) UTI -Pt denied symptoms before this new onset delirium -Allergic to sulfa abx, and cephalexin so Bactrim and Ceftraixone are CI. Macrobid bordeline resistant based on sensitivites. So pt placed on cipro 200BID for 3 days. -monitor for resolution of delirium on antibiotics 6) XU -Improving. Cr .96 today -Likely pre-renal failure due to dehydration as Cr trending down with fluid hydration. Likely due to salt wasting (HZT use) and poor intake (anorexia) -Sodium random urine-for fractional excretion-calculated FeNa is 0.34%. So appropriate kidney response in holding onto sodium suggesting further a prerenal cause of the renal insufficiency. -Continue fluids, switched to NSS. -Nephrotoxic meds d/c- Diclofenac, Lisionpril, HZT 7) Hypercalcemia -Improving- trending down today 10.8 -Could be due to paraneoplastic effect if primary cancer is small cell -On IV fluids which will treat 8) DM Type II -A1c-7.1 -ISS 10) Hypothyroidism -continue home meds 11) Hx of CVA -Holding ASA/Plavix- for future liver biopsy. Unsure why on both. Will keep her only one agent on discharge. 12) HLD -cont home meds 13) ROSIBEL -noncompliant with CPAP -Use bedtime O2 - no sign of CO2 retension. FEN/GI:Full Liquid Carb consistent DM2 FULL NO MECH VENT DVT Prophylaxis: heparin Dispo: Pending liver biopsy path. PT/OT. Supervising Physician Co-Signing Physician Notes Resident Physician Supervision Note: I independently interviewed and examined the patient and verified the morrison history and physical, reviewed labs and image studies, discussed the case with the resident Dr. Ching and agree with the findings and care plan. Subjective 48 y/o F found in bed this morning looking lethargic. Pt's daughter reports no acute overnight events. Pt tolerating PO intake of shakes and broth. Pt'd delirium appears to be improving from admission. No issues voiding. Pt unable to ambulate, but working with PT. Pt reports no other acute concerns or complaints. Physical Exam 2 Vital Signs (Past 24 Hours): Last Vital Signs Temp 36.4 C L 11/19/18 12:29 Pulse 100 H 11/19/18 12:29 Resp 18 11/19/18 12:29 BP 125/84 11/19/18 12:29 Pulse Ox 94 11/19/18 12:29 Constitutional: WD/WN, vitals as above + obese Eyes: PERRL, conjunctivae normal, anicteric sclerae ENMT: external ear and nose normal, oropharynx normal Respiratory: Audible stridor without stethoscope Crackles auscultated b/l Cardiovascular: RRR, no murmur, no edema Gastrointestinal (Abdomen): normal bowel sounds, soft, nontender, no hepatosplenomegaly Skin: no rashes, warm and dry Psychiatric: Affect: + flat affect Results & Data Laboratory Results Laboratory Results - last 24 hr 11/18/18 11/18/18 11/18/18 14:38 16:38 20:25 Sodium Potassium Chloride Carbon Dioxide Anion Gap BUN Creatinine Est Cr Clr Drug Dosing Est GFR ( Amer) Est GFR (Non-Af Amer) BUN/Creatinine Ratio Glucose POC Glucose 109 H 120 H Calcium Ammonia 48.0 H 11/19/18 11/19/18 11/19/18 07:49 07:51 12:16 Sodium 137 Potassium 4.3 Chloride 107 Carbon Dioxide 25 Anion Gap 5.0 BUN 24 H Creatinine 0.96 D Est Cr Clr Drug Dosing 80.4 Est GFR ( Amer) 81.1 Est GFR (Non-Af Amer) 69.9 BUN/Creatinine Ratio 24.7 H Glucose 101 H POC Glucose 220 H 106 H Calcium 10.2 H Ammonia Medications Administered Current Inpatient Medications Acetaminophen (Tylenol) 650 mg PO Q4H PRN PRN Reason: pain/fever Stop: 12/14/18 20:28 Last Admin: 11/18/18 23:32 Dose: 650 mg Hydrocodone Bitart/Acetaminophen ([place] 5/325) 1 tab PO TID PRN PRN Reason: Pain Stop: 11/28/18 20:28 Last Admin: 11/19/18 06:17 Dose: 1 tab Albuterol (Ventolin Hfa) 2 puffs INH Q6H PRN PRN Reason: Shortness Of Breath Stop: 12/14/18 21:14 Aspirin (Ecotrin Ectab) 81 mg PO DAILY TARA Stop: 12/15/18 08:59 Last Admin: 11/15/18 09:01 Dose: 81 mg Atorvastatin Calcium (Lipitor) 80 mg PO DAILY TARA Stop: 12/15/18 08:59 Last Admin: 11/19/18 12:33 Dose: 80 mg Bupropion HCl (Wellbutrin) 75 mg PO BID TARA Stop: 12/17/18 20:59 Last Admin: 11/19/18 11:41 Dose: Not Given Buspirone HCl (Buspar) 15 mg PO DAILY TARA Stop: 12/18/18 08:59 Last Admin: 11/19/18 12:32 Dose: 15 mg Clopidogrel Bisulfate (Plavix) 75 mg PO DAILY TARA Stop: 12/15/18 08:59 Last Admin: 11/15/18 09:02 Dose: 75 mg Dextrose (Dextrose 50%) 25 - 50 ml IV UD PRN; Protocol PRN Reason: Hypoglycemia Protocol Stop: 12/14/18 20:28 Docusate Sodium (Colace) 100 mg PO BID TARA Stop: 12/14/18 20:59 Last Admin: 11/16/18 08:37 Dose: 100 mg Duloxetine HCl (Cymbalta) 60 mg PO DAILY TARA Stop: 12/18/18 08:59 Last Admin: 11/19/18 12:32 Dose: 60 mg Furosemide (Lasix) 20 mg PO DAILY PRN PRN Reason: Fluid Retention Stop: 12/14/18 20:28 Last Admin: 11/15/18 09:02 Dose: 20 mg Gabapentin (Neurontin) 800 mg PO TID TARA Stop: 12/15/18 10:59 Last Admin: 11/19/18 12:35 Dose: 800 mg Glucagon (Glucagen) 1 mg SQ UD PRN; Protocol PRN Reason: Hypoglycemia Protocol Stop: 12/14/18 20:28 Glucose (Glucose 40%) 15 - 30 gm PO UD PRN; Protocol PRN Reason: Hypoglycemia Protocol Stop: 12/14/18 20:28 Glucose (Dex4 Glucose) 4 - 8 tabs PO UD PRN; Protocol PRN Reason: Hypoglycemia Protocol Stop: 12/14/18 20:28 Heparin Sodium (Porcine) (Heparin Sodium (Porcine)) 5,000 units SQ Q8 TARA Stop: 12/14/18 22:59 Last Admin: 11/19/18 06:21 Dose: 5,000 units Sodium Chloride (Nss 1000ml) 1,000 mls @ 80 mls/hr IV .[id number] [facility]ARA Stop: 12/16/18 10:44 Last Infusion: 11/19/18 10:35 Dose: 80 mls/hr Ciprofloxacin Lactate (Cipro / D5w) 200 mg in 100 mls @ 100 mls/hr IV Q12 TARA Stop: 11/20/18 20:59 Last Infusion: 11/19/18 10:35 Dose: Infused Insulin Aspart (Novolog Flexpen) 0 units SC ACHS [facility] Stop: 12/14/18 20:59 Last Admin: 11/19/18 12:33 Dose: Not Given Ipratropium [place] (Atrovent Nasal [place] 0.06%) 1 sprays MELISSA BID PRN PRN Reason: NASAL CONGESTION Stop: 12/14/18 21:44 Lamotrigine (Lamictal) 150 mg PO DAILY [facility] Stop: 12/18/18 08:59 Last Admin: 11/19/18 12:32 Dose: 150 mg Latanoprost (Xalatan Oph) 1 drops OP BID [facility] Stop: 12/15/18 20:59 Last Admin: 11/19/18 09:45 Dose: Not Given Levobunolol HCl (Betagan 0.5% Oph) 1 drops OP BID [facility] Stop: 12/15/18 20:59 Last Admin: 11/19/18 09:44 Dose: Not Given Levothyroxine Sodium (Synthroid) 25 mcg PO DAILYBB [facility] Stop: 12/15/18 06:29 Last Admin: 11/19/18 06:22 Dose: 25 mcg Loperamide HCl (Imodium) 2 mg PO Q3H PRN PRN Reason: Diarrhea Stop: 12/17/18 20:16 Last Admin: 11/18/18 18:22 Dose: 2 mg Lubiprostone (Amitiza) 24 mcg PO BID [facility] Stop: 12/14/18 21:59 Last Admin: 11/16/18 08:40 Dose: 24 mcg Magnesium Hydroxide (Milk Of Magnesia) 30 ml PO Q6H PRN PRN Reason: Constipation Stop: 12/14/18 20:28 Metoprolol Tartrate (Lopressor) 25 mg PO BID [facility] Stop: 12/16/18 20:59 Last Admin: 11/19/18 11:41 Dose: Not Given Miscellaneous (Order Awaiting Action) 1 ea N/A QS [facility] Stop: 12/15/18 00:00 Last Admin: 11/19/18 09:11 Dose: Not Given Miscellaneous (Carbohydrates For Hypoglycemia) 15 - 30 gm PO UD PRN PRN Reason: Hypoglycemia Treatment Stop: 12/14/18 20:28 Miscellaneous (Order Awaiting Action) 1 ea N/A QS [facility] Stop: 12/15/18 00:00 Last Admin: 11/19/18 09:11 Dose: Not Given Miscellaneous (Order Awaiting Action) 1 ea N/A QS [facility] Stop: 12/15/18 00:00 Last Admin: 11/19/18 09:11 Dose: Not Given Norethindrone (Aygestin) 5 mg PO BID [facility] Stop: 12/14/18 20:59 Last Admin: 11/19/18 11:41 Dose: Not Given Ondansetron HCl (Zofran) 4 mg IV Q6H PRN PRN Reason: Nausea Stop: 12/14/18 20:28 Last Admin: 11/15/18 11:40 Dose: 4 mg Polyethylene Glycol (Miralax Powder Packet) 17 gm PO BID [facility] Stop: 12/14/18 20:59 Last Admin: 11/19/18 09:34 Dose: Not Given Psyllium Hydrophilic Mucilloid (Metamucil) 1 pkt PO QAM [facility] Stop: 12/15/18 08:59 Last Admin: 11/19/18 09:34 Dose: Not Given Tolterodine Tartrate (Detrol La) 2 mg PO DAILY [facility] Stop: 12/15/18 08:59 Last Admin: 11/19/18 12:33 Dose: 2 mg Vitamin B Complex (Vitamin B Complex) 1 tab PO QAM [facility] Stop: 12/15/18 08:59 Last Admin: 11/19/18 12:33 Dose: 1 tab Resident Activity Tracking Resident Involvement: Resident Care Provided Care Provided: Adult Hospital Medicine
[2018-11-20] MEDS: SODIUM CHLORIDE 0.9% 1000ML 1,000 ML IV SCH (02:10)
[2018-11-20] MEDS: HEPARIN SOD 5,000 UNIT/0.5 ML VIAL SQ SCH ×3 (05:29→21:10)
[2018-11-20] MEDS: LEVOTHYROXINE SODIUM 25 MCG TABLET PO SCH (05:30)
[2018-11-20 06:55] LABS: Basophils # (auto) 0.03 K/uL (0-0.2); Basophils % (auto) 0.4 %; Eosinophils # (auto) 0.06 K/uL (0-0.5); Eosinophils % (auto) 0.7 %; Hematocrit (blood only) 39.3 % (37-47); Hemoglobin 12.8 g/dL (12.0-16.0); Immature Granulocytes # (auto) 0.35 K/uL (0.00-0.02); Immature Granulocytes % (auto) 4.3 %; Lymphocytes # (auto) 1.27 K/uL (1.2-3.4); Lymphocytes % (auto) 15.7 %; Mean Corpuscular Hgb Conc 32.6 g/dL (32-36); Mean Corpuscular Volume 84.3 fL (80-100); Mean Platelet Volume 10.5 fL (7.4-10.4); Monocytes # (auto) 0.58 K/uL (0.11-0.59); Monocytes % (auto) 7.2 %; Neutrophils # (auto) 5.78 K/uL (1.4-6.5); Neutrophils % (auto) 71.7 %; Platelet Count 197 K/uL (130-400); RDW Coefficient of Variation 16.7 % (11.5-14.5); RDW Standard Deviation 50.8 fL (36.4-46.3); Red Blood Count 4.66 M/uL (4.2-5.4); White Blood Count 8.07 K/uL (4.8-10.8)
[2018-11-20 07:38] LABS: Albumin Level 2.1 gm/dl (3.4-5.0); BUN Creatinine Ratio 21.6 (10-20); Calcium 10.1 mg/dl (8.5-10.1); Creatinine Clr Calc Pharmacy 81.5 ml/min; Est GFR (African American) 82.1; Est GFR (Non-African American) 70.8
[2018-11-20 07:40] LABS: Albumin Globulin Ratio 0.5 (0.9-2); Bilirubin,Total 0.4 mg/dl (0.2-1); Globulin 4.4 gm/dl (2.5-4.0); Total Protein 6.5 gm/dl (6.4-8.2)
[2018-11-20] MEDS: ONDANSETRON INJ 2 MG/ML 2 ML VIAL IV PRN ×2 (08:43→18:19)
[2018-11-20] MEDS: LATANOPROST 0.005% OP SOLN 2.5 ML BTL OP SCH ×3 (08:45→22:03)
[2018-11-20] MEDS: LEVOBUNOLOL HCL 0.5% OP SOLN 5 ML BTL OP SCH ×3 (08:45→22:02)
[2018-11-20] MEDS: PSYLLIUM 58.6% POWDER PACKET PO SCH (08:45)
[2018-11-20] MEDS: POLYETHYLENE (MIRALAX) 17 GM PACK PO SCH ×2 (08:45→21:13)
[2018-11-20] MEDS: INSULIN ASPART 100 UNITS/ML 3 ML PEN SC SCH ×4 (08:50→21:09)
[2018-11-20] MEDS: CIPROFLOXACIN / D5W 200 MG/100 ML BAG IV SCH (08:50)
[2018-11-20] MEDS: GABAPENTIN 250 MG/5 ML 470 ML BTL PO SCH ×4 (09:48→22:02)
[2018-11-20] MEDS: METOPROLOL TARTRATE 25 MG TAB PO SCH ×3 (10:55→22:02)
[2018-11-20] MEDS: NORETHINDRONE 5 MG TAB PO SCH ×3 (10:55→22:02)
[2018-11-20] MEDS: buPROPion HCl 75 MG TABLET PO SCH ×3 (10:55→22:03)
--- NOTE | 2018-11-20 11:29 | Family Medicine Progress Note ---
Addendum entered and electronically signed by Bin Ching DO 11/20/18 11: 52: Addendum (Blank) Addendum November 20, 2018 11:51 CXR Results: No change compared to the prior chest CT. Patchy nodular right mid to lower lung zone densities persist. Right hilar/paratracheal mass is again noted. Original Note: Date of Service November 20, 2018 Assessment & Plan (1) Lesion of liver: 48yo with a complex PMHx with significant metastasis to chest, liver and bones from an unknown primary tumor, likely lung. She has dysphagia and an XU. She presented with complaints of chronic back pain. 1) Metastatic lesion -CT of chest: "Extensive metastatic disease within the neck, chest, and visualized upper abdomen as described above. Dominant right peritracheal/hilar soft tissue mass measures up to 8.5 cm." -CT Head: No acute intracranial abnormality. -Antiplatelets on hold on evening of 11/15 for possible Liver biopsy to determine nature of primary. Based on primary, if small cell or lymphoma can see some benefit from immuno/chemotherapy per heme/onc -rads: Successful ultrasound guided fine needle aspiration of a 1.4 cm upper omental nodule. Awaiting pathology results. Per radiology, results around sunday. -PT: recommend inpt rehab Respiratory distress - concern of aspiration event/fluid overload -CXR ordered 2) Dysphagia -CT chest shows likely cause--impingement from metastatic mass -Barium swallow showed mild dysmotility-otherwise normal -GI consult: Normal upper gastrointestinal series several weeks ago. Upper endoscopy is not indicated in this setting, it would not add to her care. Tolerating PO intake with broths/shakes. Cont to look for her primary source to see if this can be treated as lymphadenopathy may be contributing to some of her solid dysphagia 3) Chronic Pain -Gabapentin and Cymbalta for chronic pain. Cymbalta dose increased to 90mg to also help with new arm pain and anxiety related to dx -10 pain today. Hydrocodone resumed as likely not a cause of her acute delirium given that she tolerated well in past. Not scheduled, prn. 4) Delirium -cognition improved -Psych consult : Likely 2/2 to use of opiates, change in environment, multiple medical conditions including metastatic cancer, UTI. 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 Should return to see Dr. Chatterjee at [facility] upon discharge -Continue to follow 6) UTI -Pt denied symptoms before this new onset delirium -Allergic to sulfa abx, and cephalexin so Bactrim and Ceftraixone are CI. Macrobid bordeline resistant based on sensitivites. So pt placed on cipro 200BID for 3 days. -monitor for resolution of delirium on antibiotics 7) XU -Resolved. Cr .95 today -Likely pre-renal failure due to dehydration as Cr trending down with fluid hydration. Likely due to salt wasting (HZT use) and poor intake (anorexia) -Sodium random urine-for fractional excretion-calculated FeNa is 0.34%. So appropriate kidney response in holding onto sodium suggesting further a prerenal cause of the renal insufficiency. -Continue fluids, switched to NSS. -Nephrotoxic meds d/c- Diclofenac, Lisionpril, HZT 8) DM Type II -A1c-7.1 -ISS 9) Hypothyroidism -continue home meds 10) Hx of CVA -Holding ASA/Plavix- for future liver biopsy. Unsure why on both. Will keep her only one agent on discharge. 11) HLD -cont home meds 12) ROSIBEL -noncompliant with CPAP -Use bedtime O2 - no sign of CO2 retention. FEN/GI:Full Liquid Carb consistent DM2 FULL NO MECH VENT DVT Prophylaxis: heparin Dispo: Inpt Rehab. Pending liver biopsy path. Supervising Physician Co-Signing Physician Notes Resident Physician Supervision Note: I independently interviewed and examined the patient and verified the morrison history and physical, reviewed labs and image studies, discussed the case with the resident Dr. Ching and agree with the findings and care plan. Subjective 48 y/o F found in bed this morning looking lethargic, but improved from yesterday. Pt's daughter reports no acute overnight events. Pt tolerating PO intake of shakes and broth, notes some regurg. Pt'd delirium appears to be improving from admission. No issues voiding. Pt unable to ambulate, but working with PT, having difficulty. Pt reports no other acute concerns or complaints. Physical Exam 2 Vital Signs (Past 24 Hours): Last Vital Signs Temp 36.4 C L 11/20/18 11:23 Pulse 105 H 02/13/19 11:23 Resp 20 11/20/18 11:23 BP 125/69 11/20/18 11:23 Pulse Ox 91 11/20/18 11:23 Constitutional: WD/WN, vitals as above + obese Eyes: PERRL, conjunctivae normal, anicteric sclerae ENMT: external ear and nose normal, oropharynx normal Respiratory: Audible stridor without stethoscope Rales/Crackles auscultated b/l Cardiovascular: RRR, no murmur, no edema Gastrointestinal (Abdomen): normal bowel sounds, soft, nontender, no hepatosplenomegaly Skin: no rashes, warm and dry Psychiatric: Affect: + flat affect Results & Data Laboratory Results Laboratory Results - last 24 hr 11/19/18 11/19/18 11/19/18 12:16 18:24 20:21 WBC RBC Hgb Hct MCV MCH MCHC RDW Std Deviation RDW Coeff of Rayray Plt Count MPV Immature Gran % (Auto) Neut % (Auto) Lymph % (Auto) [place]imes % (Auto) Eos % (Auto) Baso % (Auto) Immature Gran # (Auto) Neut # (Auto) Lymph # (Auto) [place] # (Auto) Eos # (Auto) Baso # (Auto) Sodium Potassium Chloride Carbon Dioxide Anion Gap BUN Creatinine Est Cr Clr Drug Dosing Est GFR ( Amer) Est GFR (Non-Af Amer) BUN/Creatinine Ratio Glucose POC Glucose 106 H 150 H 172 H Calcium Total Bilirubin AST ALT Alkaline Phosphatase Total Protein Albumin Globulin Albumin/Globulin Ratio 11/20/18 11/20/18 11/20/18 06:25 06:25 07:47 WBC 8.07 RBC 4.66 Hgb 12.8 Hct 39.3 MCV 84.3 MCH 27.5 MCHC 32.6 RDW Std Deviation 50.8 H RDW Coeff of Rayray 16.7 H Plt Count 197 MPV 10.5 H Immature Gran % (Auto) 4.3 Neut % (Auto) 71.7 Lymph % (Auto) 15.7 [place] % (Auto) 7.2 Eos % (Auto) 0.7 Baso % (Auto) 0.4 Immature Gran # (Auto) 0.35 H Neut # (Auto) 5.78 Lymph # (Auto) 1.27 [place]imes # (Auto) 0.58 Eos # (Auto) 0.06 Baso # (Auto) 0.03 Sodium 137 Potassium 4.0 Chloride 106 Carbon Dioxide 24 Anion Gap 7.0 BUN 20 H Creatinine 0.95 Est Cr Clr Drug Dosing 81.5 Est GFR ( Amer) 82.1 Est GFR (Non-Af Amer) 70.8 BUN/Creatinine Ratio 21.6 H Glucose 130 H POC Glucose 120 H Calcium 10.1 Total Bilirubin 0.4 AST 62 H ALT 35 Alkaline Phosphatase 55 Total Protein 6.5 Albumin 2.1 L Globulin 4.4 H Albumin/Globulin Ratio 0.5 L 11/20/18 11:20 WBC RBC Hgb Hct MCV MCH MCHC RDW Std Deviation RDW Coeff of Rayray Plt Count MPV Immature Gran % (Auto) Neut % (Auto) Lymph % (Auto) [place] % (Auto) Eos % (Auto) Baso % (Auto) Immature Gran # (Auto) Neut # (Auto) Lymph # (Auto) [place] # (Auto) Eos # (Auto) Baso # (Auto) Sodium Potassium Chloride Carbon Dioxide Anion Gap BUN Creatinine Est Cr Clr Drug Dosing Est GFR ( Amer) Est GFR (Non-Af Amer) BUN/Creatinine Ratio Glucose POC Glucose 128 H Calcium Total Bilirubin AST ALT Alkaline Phosphatase Total Protein Albumin Globulin Albumin/Globulin Ratio Medications Administered Current Inpatient Medications Acetaminophen (Tylenol) 650 mg PO Q4H PRN PRN Reason: pain/fever Stop: 12/14/18 20:28 Last Admin: 11/18/18 23:32 Dose: 650 mg Hydrocodone Bitart/Acetaminophen ([place] 5/325) 1 tab PO TID PRN PRN Reason: Pain Stop: 11/28/18 20:28 Last Admin: 11/19/18 17:57 Dose: 1 tab Albuterol (Ventolin Hfa) 2 puffs INH Q6H PRN PRN Reason: Shortness Of Breath Stop: 12/14/18 21:14 Aspirin (Ecotrin Ectab) 81 mg PO DAILY [facility] Stop: 12/15/18 08:59 Last Admin: 11/15/18 09:01 Dose: 81 mg Atorvastatin Calcium (Lipitor) 80 mg PO DAILY [facility] Stop: 12/15/18 08:59 Last Admin: 11/19/18 12:33 Dose: 80 mg Bupropion HCl (Wellbutrin) 75 mg PO BID [facility] Stop: 12/17/18 20:59 Last Admin: 11/20/18 10:55 Dose: Not Given Buspirone HCl (Buspar) 15 mg PO DAILY [facility] Stop: 12/18/18 08:59 Last Admin: 11/19/18 12:32 Dose: 15 mg Clopidogrel Bisulfate (Plavix) 75 mg PO DAILY [facility] Stop: 12/15/18 08:59 Last Admin: 11/15/18 09:02 Dose: 75 mg Dextrose (Dextrose 50%) 25 - 50 ml IV UD PRN; Protocol PRN Reason: Hypoglycemia Protocol Stop: 12/14/18 20:28 Docusate Sodium (Colace) 100 mg PO BID [facility] Stop: 12/14/18 20:59 Last Admin: 11/16/18 08:37 Dose: 100 mg Duloxetine HCl (Cymbalta) 60 mg PO DAILY [facility] Stop: 12/18/18 08:59 Last Admin: 11/19/18 12:32 Dose: 60 mg Furosemide (Lasix) 20 mg PO DAILY PRN PRN Reason: Fluid Retention Stop: 12/14/18 20:28 Last Admin: 11/15/18 09:02 Dose: 20 mg Gabapentin (Neurontin) 800 mg PO TID [facility] Stop: 12/15/18 10:59 Last Admin: 11/20/18 09:48 Dose: Not Given Glucagon (Glucagen) 1 mg SQ UD PRN; Protocol PRN Reason: Hypoglycemia Protocol Stop: 12/14/18 20:28 Glucose (Glucose 40%) 15 - 30 gm PO UD PRN; Protocol PRN Reason: Hypoglycemia Protocol Stop: 12/14/18 20:28 Glucose (Dex4 Glucose) 4 - 8 tabs PO UD PRN; Protocol PRN Reason: Hypoglycemia Protocol Stop: 12/14/18 20:28 Heparin Sodium (Porcine) (Heparin Sodium (Porcine)) 5,000 units SQ Q8 [facility] Stop: 12/14/18 22:59 Last Admin: 11/20/18 05:29 Dose: 5,000 units Sodium Chloride (Nss 1000ml) 1,000 mls @ 80 mls/hr IV .[id number] [facility] Stop: 12/16/18 10:44 Last Infusion: 11/20/18 10:56 Dose: 0 mls/hr Ciprofloxacin Lactate (Cipro / D5w) 200 mg in 100 mls @ 100 mls/hr IV Q12 [facility] Stop: 11/20/18 20:59 Last Infusion: 11/20/18 09:55 Dose: Infused Insulin Aspart (Novolog Flexpen) 0 units SC ACHS [facility] Stop: 12/14/18 20:59 Last Admin: 11/20/18 08:50 Dose: Not Given Ipratropium [place] (Atrovent Nasal [place] 0.06%) 1 sprays MELISSA BID PRN PRN Reason: NASAL CONGESTION Stop: 12/14/18 21:44 Lamotrigine (Lamictal) 150 mg PO DAILY [facility] Stop: 12/18/18 08:59 Last Admin: 11/19/18 12:32 Dose: 150 mg Latanoprost (Xalatan Oph) 1 drops OP BID [facility] Stop: 12/15/18 20:59 Last Admin: 11/20/18 08:45 Dose: Not Given Levobunolol HCl (Betagan 0.5% Oph) 1 drops OP BID [facility] Stop: 12/15/18 20:59 Last Admin: 11/20/18 08:45 Dose: Not Given Levothyroxine Sodium (Synthroid) 25 mcg PO DAILYBB [facility] Stop: 12/15/18 06:29 Last Admin: 11/20/18 05:30 Dose: 25 mcg Loperamide HCl (Imodium) 2 mg PO Q3H PRN PRN Reason: Diarrhea Stop: 12/17/18 20:16 Last Admin: 11/18/18 18:22 Dose: 2 mg Lubiprostone (Amitiza) 24 mcg PO BID [facility] Stop: 12/14/18 21:59 Last Admin: 11/16/18 08:40 Dose: 24 mcg Magnesium Hydroxide (Milk Of Magnesia) 30 ml PO Q6H PRN PRN Reason: Constipation Stop: 12/14/18 20:28 Metoprolol Tartrate (Lopressor) 25 mg PO BID [facility] Stop: 12/16/18 20:59 Last Admin: 11/20/18 10:55 Dose: Not Given Miscellaneous (Order Awaiting Action) 1 ea N/A QS [facility] Stop: 12/15/18 00:00 Last Admin: 11/20/18 08:44 Dose: Not Given Miscellaneous (Carbohydrates For Hypoglycemia) 15 - 30 gm PO UD PRN PRN Reason: Hypoglycemia Treatment Stop: 12/14/18 20:28 Miscellaneous (Order Awaiting Action) 1 ea N/A QS [facility] Stop: 12/15/18 00:00 Last Admin: 11/20/18 08:44 Dose: Not Given Miscellaneous (Order Awaiting Action) 1 ea N/A QS [facility] Stop: 12/15/18 00:00 Last Admin: 11/20/18 08:44 Dose: Not Given Norethindrone (Aygestin) 5 mg PO BID [facility] Stop: 12/14/18 20:59 Last Admin: 11/20/18 10:55 Dose: Not Given Ondansetron HCl (Zofran) 4 mg IV Q6H PRN PRN Reason: Nausea Stop: 12/14/18 20:28 Last Admin: 11/20/18 08:43 Dose: 4 mg Polyethylene Glycol (Miralax Powder Packet) 17 gm PO BID [facility] Stop: 12/14/18 20:59 Last Admin: 11/20/18 08:45 Dose: Not Given Psyllium Hydrophilic Mucilloid (Metamucil) 1 pkt PO QAM [facility] Stop: 12/15/18 08:59 Last Admin: 11/20/18 08:45 Dose: Not Given Tolterodine Tartrate (Detrol La) 2 mg PO DAILY [facility] Stop: 12/15/18 08:59 Last Admin: 11/19/18 12:33 Dose: 2 mg Vitamin B Complex (Vitamin B Complex) 1 tab PO QAM [facility] Stop: 12/15/18 08:59 Last Admin: 11/19/18 12:33 Dose: 1 tab Resident Activity Tracking Resident Involvement: Resident Care Provided Care Provided: Adult Hospital Medicine
--- NOTE | 2018-11-20 11:45 | XRay Report ---
XR chest 1V portable HISTORY: cough, shortness of breath COMPARISON: Chest 11/14/2018. FINDINGS: The right hilar/peritracheal mass is again noted. Patchy and nodular airspace opacities wit hin the right mid to lower lung zone are again noted. The left lung is clear. The heart remains enlar ged. No pleural effusions. No pneumothorax. IMPRESSION: 1. No change compared to the prior chest CT. 2. Patchy nodular right mid to lower lung zone densities persist. 3. Right hilar/paratracheal mass is again noted. Electronically signed by: Abdirahman Nance M.D. 11/20/2018 11:44 AM
[2018-11-20] MEDS: DULOXETINE HCL 60 MG CAP PO SCH (12:32)
[2018-11-20] MEDS: ATORVASTATIN 40 MG TAB PO SCH (12:32)
[2018-11-20] MEDS: TOLTERODINE TARTRATE LA 2 MG CAPCR PO SCH (12:32)
[2018-11-20] MEDS: VITAMIN B COMPLEX TAB PO SCH (12:32)
[2018-11-20] MEDS: lamoTRIgine 100 MG TAB PO SCH (12:32)
[2018-11-20] MEDS ORDERED: ALBUTEROL 0.083% NEBU SOLN 3 ML VIAL NEB PRN (16:37)
[2018-11-20] MEDS ORDERED: PROMETHAZINE HCL 12.5 MG in SODIUM CHLORIDE 0.9% 50 ML IV STA (20:21)
[2018-11-21 06:11] LABS: Hematocrit (blood only) 38.8 % (37-47); Hemoglobin 12.8 g/dL (12.0-16.0); Mean Corpuscular Volume 83.4 fL (80-100); Mean Platelet Volume 10.3 fL (7.4-10.4); Nucleated RBC # (auto) 0.07 K/uL (0-0); Nucleated RBC % (auto) 0.9 %; Platelet Count 193 K/uL (130-400); RDW Coefficient of Variation 16.3 % (11.5-14.5); Red Blood Count 4.65 M/uL (4.2-5.4); White Blood Count 8.15 K/uL (4.8-10.8)
[2018-11-21] MEDS: HEPARIN SOD 5,000 UNIT/0.5 ML VIAL SQ SCH ×3 (06:45→22:06)
[2018-11-21 06:47] LABS: Calcium 10.5 mg/dl (8.5-10.1); Creatinine Clr Calc Pharmacy 83.3 ml/min; Est GFR (African American) 85.3; Est GFR (Non-African American) 73.6; Potassium 3.9 mmol/L (3.5-5.1)
[2018-11-21] MEDS: LEVOTHYROXINE SODIUM 25 MCG TABLET PO SCH (06:48)
[2018-11-21] MEDS: LEVOBUNOLOL HCL 0.5% OP SOLN 5 ML BTL OP SCH ×2 (08:28→20:48)
[2018-11-21] MEDS: NORETHINDRONE 5 MG TAB PO SCH ×2 (08:28→20:39)
[2018-11-21] MEDS: DULOXETINE HCL 60 MG CAP PO SCH (08:29)
[2018-11-21] MEDS: METOPROLOL TARTRATE 25 MG TAB PO SCH ×2 (08:29→20:35)
[2018-11-21] MEDS: GABAPENTIN 250 MG/5 ML 470 ML BTL PO SCH ×3 (08:29→20:47)
[2018-11-21] MEDS: lamoTRIgine 100 MG TAB PO SCH (08:29)
[2018-11-21] MEDS: TOLTERODINE TARTRATE LA 2 MG CAPCR PO SCH (08:29)
[2018-11-21] MEDS: POLYETHYLENE (MIRALAX) 17 GM PACK PO SCH ×2 (08:29→20:44)
[2018-11-21] MEDS: ATORVASTATIN 40 MG TAB PO SCH (08:29)
[2018-11-21] MEDS: PSYLLIUM 58.6% POWDER PACKET PO SCH (08:29)
[2018-11-21] MEDS: buPROPion HCl 75 MG TABLET PO SCH ×2 (08:30→20:39)
[2018-11-21] MEDS: VITAMIN B COMPLEX TAB PO SCH (08:30)
[2018-11-21] MEDS: LATANOPROST 0.005% OP SOLN 2.5 ML BTL OP SCH ×2 (08:30→20:47)
[2018-11-21] MEDS: INSULIN ASPART 100 UNITS/ML 3 ML PEN SC SCH ×4 (08:31→20:41)
[2018-11-21] MEDS ORDERED: Nursing to Pharmacy Communication ONE (08:43)
[2018-11-21] MEDS ORDERED: ACETAMINOPHEN SOL 650 MG/20.3 ML UDC PO PRN (08:59)
[2018-11-21] MEDS ORDERED: FUROSEMIDE 20 MG/2 ML UDP PO PRN (09:07)
[2018-11-21] MEDS ORDERED: HYDROCODONE/APAP 2.5MG/108MG ELIX 5 ML UDP PO PRN (09:13)
[2018-11-21] MEDS ORDERED: LOPERAMIDE LIQUID 120 ML BOTTLE PO PRN (09:20)
[2018-11-21] MEDS: ONDANSETRON INJ 2 MG/ML 2 ML VIAL IV PRN (09:41)
[2018-11-21] MEDS: CLOTRIMAZOLE 10 MG TROCHE BUCCAL SCH ×4 (11:46→22:07)
--- NOTE | 2018-11-21 16:38 | Family Medicine Progress Note ---
Date of Service November 21, 2018 Assessment & Plan (1) Lesion of liver: 48yo with a complex PMHx with significant metastasis to chest, liver and bones from an unknown primary tumor, likely lung. She has dysphagia and an XU. She presented with complaints of chronic back pain. 1) Metastatic small cell carcinoma -CT of chest: "Extensive metastatic disease within the neck, chest, and visualized upper abdomen as described above. Dominant right peritracheal/hilar soft tissue mass measures up to 8.5 cm." -CT Head: No acute intracranial abnormality. -Successful ultrasound guided fine needle aspiration of a 1.4 cm upper omental nodule-->METASTATIC SMALL CELL CARCINOMA -awaiting recs from heme/onc -PT: recommend inpt rehab 2) Respiratory distress - concern of aspiration event/fluid overload -CXR: No change compared to the prior chest CT, Patchy nodular right mid to lower lung zone densities persist, Right hilar/paratracheal mass is again noted. 3) Dysphagia -CT chest shows likely cause--impingement from metastatic mass -Barium swallow showed mild dysmotility-otherwise normal -GI consult: Normal upper gastrointestinal series several weeks ago. Upper endoscopy is not indicated in this setting, it would not add to her care. Tolerating PO intake with broths/shakes. Cont to look for her primary source to see if this can be treated as lymphadenopathy may be contributing to some of her solid dysphagia -continues to have very poor oral intake. switch meds to liquid -empirically treat for thrush -clear liquids. Will re-assess again tomorrow to advance diet. discuss with heme /onco about parentral nutrition. 4) Chronic Pain -Gabapentin and Cymbalta for chronic pain. Cymbalta dose increased to 90mg to also help with new arm pain and anxiety related to dx -6-7/10 pain today. Hydrocodone resumed as likely not a cause of her acute delirium given that she tolerated well in past. Not scheduled, prn. 5) Delirium -cognition improved -Psych consult : Likely 2/2 to use of opiates, change in environment, multiple medical conditions including metastatic cancer, UTI. 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 Should return to see Dr. Chatterjee at [facility] upon discharge -Continue to follow 7) UTI -Allergic to sulfa abx, and cephalexin so Bactrim and Ceftraixone are CI. Macrobid bordeline resistant based on sensitivites. So pt placed on cipro 200BID for 3 days. D/C today. 8) XU -Resolved. Cr .92 today -Likely pre-renal failure due to dehydration as Cr trending down with fluid hydration. Likely due to salt wasting (HZT use) and poor intake (anorexia) -Sodium random urine-for fractional excretion-calculated FeNa is 0.34%. So appropriate kidney response in holding onto sodium suggesting further a prerenal cause of the renal insufficiency. -Continue fluids, switched to NSS. -Nephrotoxic meds d/c- Diclofenac, Lisionpril, HZT 9) DM Type II -A1c-7.1 -ISS 10) Hypothyroidism -continue home meds 11) Hx of CVA -Holding ASA/Plavix- for future liver biopsy. Unsure why on both. Will keep her only one agent on discharge. 12) HLD -cont home meds 13) ROSIBEL -noncompliant with CPAP -Use bedtime O2 - no sign of CO2 retention. FEN/GI: NSS @80, clear liquids FULL NO MECH VENT DVT Prophylaxis: heparin Dispo: Inpt Rehab in [place]. Pending heme/onc recs Supervising Physician Co-Signing Physician Notes Resident Physician Supervision Note: I independently interviewed and examined the patient and verified the morrison history and physical, reviewed labs and image studies, discussed the case with the resident Dr. Ching and agree with the findings and care plan. Subjective 48 y/o F found in bed this morning looking lethargic, but improved from yesterday. Pt's daughter reports no acute overnight events. Pt tolerating PO intake of shakes and broth, notes some regurg. Pt'd delirium appears to be improving from admission. No issues voiding. Pt unable to ambulate, but working with PT, able to move to chair today. Pt reports no other acute concerns or complaints. Physical Exam 2 Vital Signs (Past 24 Hours): Last Vital Signs Temp 36.8 C 11/21/18 16:14 Pulse 110 H 11/21/18 16:20 Resp 16 11/21/18 16:14 BP 139/87 11/21/18 16:20 Pulse Ox 91 02/14/19 16:20 Constitutional: WD/WN, vitals as above + obese Eyes: PERRL, conjunctivae normal, anicteric sclerae ENMT: external ear and nose normal, oropharynx normal Respiratory: Audible stridor without stethoscope Rales/Crackles auscultated b/l Cardiovascular: RRR, no murmur, no edema Gastrointestinal (Abdomen): normal bowel sounds, soft, nontender, no hepatosplenomegaly Skin: no rashes, warm and dry Psychiatric: Affect: + flat affect Results & Data Laboratory Results Laboratory Results - last 24 hr 11/20/18 11/20/18 11/21/18 16:53 19:54 05:59 WBC 8.15 RBC 4.65 Hgb 12.8 Hct 38.8 MCV 83.4 MCH 27.5 MCHC 33.0 RDW Std Deviation 49.0 H RDW Coeff of Rayray 16.3 H Plt Count 193 MPV 10.3 Absolute Nucleated RBC 0.07 H Nucleated RBC % (auto) 0.9 Sodium Potassium Chloride Carbon Dioxide Anion Gap BUN Creatinine Est Cr Clr Drug Dosing Est GFR ( Amer) Est GFR (Non-Af Amer) BUN/Creatinine Ratio Glucose POC Glucose 129 H 138 H Calcium 11/21/18 11/21/18 11/21/18 05:59 08:27 11:08 WBC RBC Hgb Hct MCV MCH MCHC RDW Std Deviation RDW Coeff of Rayray Plt Count MPV Absolute Nucleated RBC Nucleated RBC % (auto) Sodium 139 Potassium 3.9 Chloride 107 Carbon Dioxide 24 Anion Gap 8.0 BUN 18 Creatinine 0.92 Est Cr Clr Drug Dosing 83.3 Est GFR ( Amer) 85.3 Est GFR (Non-Af Amer) 73.6 BUN/Creatinine Ratio 20.0 Glucose 108 H POC Glucose 109 H 126 H Calcium 10.5 H 11/21/18 16:32 WBC RBC Hgb Hct MCV MCH MCHC RDW Std Deviation RDW Coeff of Rayray Plt Count MPV Absolute Nucleated RBC Nucleated RBC % (auto) Sodium Potassium Chloride Carbon Dioxide Anion Gap BUN Creatinine Est Cr Clr Drug Dosing Est GFR ( Amer) Est GFR (Non-Af Amer) BUN/Creatinine Ratio Glucose POC Glucose 131 H Calcium Medications Administered Current Inpatient Medications Acetaminophen (Tylenol) 650 mg PO Q4H PRN PRN Reason: Pain or Fever Stop: 12/21/18 08:58 Last Admin: 11/21/18 09:11 Dose: 650 mg Hydrocodone Bitart/Acetaminophen (Lortab) 10 ml PO TID PRN PRN Reason: Pain Stop: 12/05/18 09:12 Last Admin: 11/21/18 11:46 Dose: 10 ml Albuterol (Ventolin Hfa) 2 puffs INH Q6H PRN PRN Reason: Shortness Of Breath Stop: 12/14/18 21:14 Albuterol (Ventolin 0.083% 2.5mg/3ml) 2.5 mg NEB Q6R PRN PRN Reason: Cough Stop: 12/20/18 16:36 Aspirin (Ecotrin Ectab) 81 mg PO DAILY [facility] Stop: 12/15/18 08:59 Last Admin: 11/15/18 09:01 Dose: 81 mg Atorvastatin Calcium (Lipitor) 80 mg PO DAILY [facility] Stop: 12/15/18 08:59 Last Admin: 11/21/18 08:29 Dose: Not Given Bupropion HCl (Wellbutrin) 75 mg PO BID [facility] Stop: 12/17/18 20:59 Last Admin: 11/21/18 08:30 Dose: Not Given Buspirone HCl (Buspar) 15 mg PO DAILY [facility] Stop: 12/18/18 08:59 Last Admin: 11/21/18 08:29 Dose: Not Given Clopidogrel Bisulfate (Plavix) 75 mg PO DAILY [facility] Stop: 12/15/18 08:59 Last Admin: 11/15/18 09:02 Dose: 75 mg Clotrimazole (Mycelex) 10 mg BUCCAL [id number] [facility] Stop: 12/01/18 10:59 Last Admin: 11/21/18 15:43 Dose: 10 mg Dextrose (Dextrose 50%) 25 - 50 ml IV UD PRN; Protocol PRN Reason: Hypoglycemia Protocol Stop: 12/14/18 20:28 Docusate Sodium (Colace) 100 mg PO BID [facility] Stop: 12/14/18 20:59 Last Admin: 11/16/18 08:37 Dose: 100 mg Duloxetine HCl (Cymbalta) 60 mg PO DAILY [facility] Stop: 12/18/18 08:59 Last Admin: 11/21/18 08:29 Dose: Not Given Furosemide (Lasix Soln) 20 mg PO DAILY PRN PRN Reason: FLUID RETENTION Stop: 12/21/18 09:06 Gabapentin (Neurontin) 800 mg PO TID [facility] Stop: 12/15/18 10:59 Last Admin: 11/21/18 14:20 Dose: Not Given Glucagon (Glucagen) 1 mg SQ UD PRN; Protocol PRN Reason: Hypoglycemia Protocol Stop: 12/14/18 20:28 Glucose (Glucose 40%) 15 - 30 gm PO UD PRN; Protocol PRN Reason: Hypoglycemia Protocol Stop: 12/14/18 20:28 Glucose (Dex4 Glucose) 4 - 8 tabs PO UD PRN; Protocol PRN Reason: Hypoglycemia Protocol Stop: 12/14/18 20:28 Heparin Sodium (Porcine) (Heparin Sodium (Porcine)) 5,000 units SQ Q8 [facility] Stop: 12/14/18 22:59 Last Admin: 11/21/18 14:20 Dose: 5,000 units Sodium Chloride (Nss 1000ml) 1,000 mls @ 80 mls/hr IV .[id number] [facility] Stop: 12/16/18 10:44 Last Infusion: 11/20/18 10:56 Dose: 0 mls/hr Insulin Aspart (Novolog Flexpen) 0 units SC ACHS [facility] Stop: 12/14/18 20:59 Last Admin: 11/21/18 11:48 Dose: Not Given Ipratropium [place] (Atrovent Nasal [place] 0.06%) 1 sprays MELISSA BID PRN PRN Reason: NASAL CONGESTION Stop: 12/14/18 21:44 Lamotrigine (Lamictal) 150 mg PO DAILY [facility] Stop: 12/18/18 08:59 Last Admin: 11/21/18 08:29 Dose: Not Given Latanoprost (Xalatan Oph) 1 drops OP BID [facility] Stop: 12/15/18 20:59 Last Admin: 11/21/18 08:30 Dose: Not Given Levobunolol HCl (Betagan 0.5% Oph) 1 drops OP BID [facility] Stop: 12/15/18 20:59 Last Admin: 11/21/18 08:28 Dose: Not Given Levothyroxine Sodium (Synthroid) 25 mcg PO DAILYBB [facility] Stop: 12/15/18 06:29 Last Admin: 11/21/18 06:48 Dose: 25 mcg Loperamide HCl (Imodium A-D Liquid) 2 mg PO Q3H PRN PRN Reason: after each loose stool PRN Stop: 12/21/18 09:19 Lubiprostone (Amitiza) 24 mcg PO BID [facility] Stop: 12/14/18 21:59 Last Admin: 11/16/18 08:40 Dose: 24 mcg Magnesium Hydroxide (Milk Of Magnesia) 30 ml PO Q6H PRN PRN Reason: Constipation Stop: 12/14/18 20:28 Metoprolol Tartrate (Lopressor) 25 mg PO BID [facility] Stop: 12/16/18 20:59 Last Admin: 11/21/18 08:29 Dose: Not Given Miscellaneous (Order Awaiting Action) 1 ea N/A QS [facility] Stop: 12/15/18 00:00 Last Admin: 11/21/18 15:43 Dose: Not Given Miscellaneous (Carbohydrates For Hypoglycemia) 15 - 30 gm PO UD PRN PRN Reason: Hypoglycemia Treatment Stop: 12/14/18 20:28 Miscellaneous (Order Awaiting Action) 1 ea N/A QS [facility] Stop: 12/15/18 00:00 Last Admin: 11/21/18 15:43 Dose: Not Given Miscellaneous (Order Awaiting Action) 1 ea N/A QS [facility] Stop: 12/15/18 00:00 Last Admin: 11/21/18 15:43 Dose: Not Given Norethindrone (Aygestin) 5 mg PO BID [facility] Stop: 12/14/18 20:59 Last Admin: 11/21/18 08:28 Dose: Not Given Ondansetron HCl (Zofran) 4 mg IV Q6H PRN PRN Reason: Nausea Stop: 12/14/18 20:28 Last Admin: 11/21/18 09:41 Dose: 4 mg Polyethylene Glycol (Miralax Powder Packet) 17 gm PO BID [facility] Stop: 12/14/18 20:59 Last Admin: 11/21/18 08:29 Dose: Not Given Psyllium Hydrophilic Mucilloid (Metamucil) 1 pkt PO QAM [facility] Stop: 12/15/18 08:59 Last Admin: 11/21/18 08:29 Dose: Not Given Tolterodine Tartrate (Detrol La) 2 mg PO DAILY [facility] Stop: 12/15/18 08:59 Last Admin: 02/14/19 08:29 Dose: Not Given Vitamin B Complex (Vitamin B Complex) 1 tab PO QAM [facility] Stop: 12/15/18 08:59 Last Admin: 11/21/18 08:30 Dose: Not Given Resident Activity Tracking Resident Involvement: Resident Care Provided Care Provided: Adult Hospital Medicine
[2018-11-21] MEDS: HYDROCODONE/APAP 2.5MG/108MG ELIX 5 ML UDP PO PRN (18:30)
[2018-11-22] MEDS: HEPARIN SOD 5,000 UNIT/0.5 ML VIAL SQ SCH ×3 (06:05→22:30)
[2018-11-22] MEDS: CLOTRIMAZOLE 10 MG TROCHE BUCCAL SCH ×5 (06:06→23:47)
[2018-11-22] MEDS: LEVOTHYROXINE SODIUM 25 MCG TABLET PO SCH (06:06)
[2018-11-22 06:41] LABS: Hematocrit (blood only) 39.5 % (37-47); Hemoglobin 12.9 g/dL (12.0-16.0); Mean Corpuscular Hgb Conc 32.7 g/dL (32-36); Mean Platelet Volume 10.1 fL (7.4-10.4); Nucleated RBC # (auto) 0.13 K/uL (0-0); Nucleated RBC % (auto) 1.6 %; Platelet Count 194 K/uL (130-400); RDW Coefficient of Variation 16.4 % (11.5-14.5); RDW Standard Deviation 49.9 fL (36.4-46.3); White Blood Count 8.09 K/uL (4.8-10.8)
[2018-11-22 07:08] LABS: Albumin Level 2.2 gm/dl (3.4-5.0); BUN Creatinine Ratio 23.2 (10-20); Calcium 10.6 mg/dl (8.5-10.1); Creatinine Clr Calc Pharmacy 85.8 ml/min; Est GFR (African American) 88.8; Est GFR (Non-African American) 76.6; Potassium 3.7 mmol/L (3.5-5.1)
[2018-11-22 07:12] LABS: Albumin Globulin Ratio 0.5 (0.9-2); Bilirubin,Total 0.5 mg/dl (0.2-1); Globulin 4.5 gm/dl (2.5-4.0); Total Protein 6.7 gm/dl (6.4-8.2)
[2018-11-22 07:23] LABS: Basophils # (auto) 0.04 K/uL (0-0.2); Basophils % (auto) 0.5 %; Eosinophils # (auto) 0.11 K/uL (0-0.5); Eosinophils % (auto) 1.4 %; Immature Granulocytes # (auto) 0.46 K/uL (0.00-0.02); Immature Granulocytes % (auto) 5.7 %; Lymphocytes % (auto) 14.8 %; Monocytes # (auto) 0.76 K/uL (0.11-0.59); Monocytes % (auto) 9.4 %; Neutrophils # (auto) 5.52 K/uL (1.4-6.5); Neutrophils % (auto) 68.2 %
[2018-11-22] MEDS: ONDANSETRON INJ 2 MG/ML 2 ML VIAL IV PRN ×3 (09:04→20:27)
[2018-11-22] MEDS: LEVOBUNOLOL HCL 0.5% OP SOLN 5 ML BTL OP SCH ×2 (09:09→20:25)
[2018-11-22] MEDS: LATANOPROST 0.005% OP SOLN 2.5 ML BTL OP SCH ×2 (09:09→20:27)
[2018-11-22] MEDS: PSYLLIUM 58.6% POWDER PACKET PO SCH (09:09)
[2018-11-22] MEDS: POLYETHYLENE (MIRALAX) 17 GM PACK PO SCH ×2 (09:09→20:26)
[2018-11-22] MEDS: INSULIN ASPART 100 UNITS/ML 3 ML PEN SC SCH ×4 (09:13→20:41)
--- NOTE | 2018-11-22 11:16 | Progress Note ---
DATE: 11/22/2018 MEDICAL ONCOLOGY PROGRESS NOTE DIAGNOSES: 1. Extensive stage small cell carcinoma. 2. Respiratory distress. 3. Dysphagia. 4. Chronic pain syndrome. 5. Delirium. 6. Bipolar disorder. 7. Urinary tract infection. 8. Type 2 diabetes mellitus. 9. Obstructive sleep apnea. SUBJECTIVE: I visited with Meka and her daughter at bedside today. I reviewed her current pathology and discussed treatment options and prognosis. According to nursing and the patient's daughter, Meka is not really made progress in improving her performance status. Nursing reports absolutely no p.o. intake and she is not taking her medications regularly. Engaged in wesley discussion regarding the utility of trying to treat her in light of a poor performance status. OBJECTIVE: GENERAL: The patient is in no acute distress, answers questions appropriately. VITAL SIGNS: Temperature 37.0, pulse 100, respiratory rate 20, blood pressure 145/92. SKIN: Without rash or lesion. Oral mucosa clear. HEART: Regular rate and rhythm. LUNGS: Clear to auscultation. ABDOMEN: Obese, soft, nontender. EXTREMITIES: No clubbing, cyanosis or edema. NEUROLOGIC: Not performed. LABORATORY DATA: WBC count 8090, hemoglobin 12.9, platelet count 194,000. Sodium 141, potassium 3.7, chloride 107, carbon dioxide 27, BUN 21, creatinine 0.89. IMPRESSION: Extensive small cell lung cancer. PLAN: I visited with Meka with the sole purpose of further discussing her diagnosis, prognosis and treatment options. Final pathology was reviewed as well as radiographic findings and extent of disease. She clearly suffers from disease progression. Daughter imparts she was actually diagnosed with her lung cancer back in August and failed to act at that time. She is now for the most part bedbound and not eating. Further engaged in discussion pertaining to salvage chemotherapy and poor performance status, explaining multiple studies have shown these patients generally do not do well and it is a possible we may be expediting her rather than extending her life. Pursuing no treatment, I estimate her survival to be measured in weeks. Ultimately, treatment is up to her. I recommend a salvage treatment with many reservations and made it quite clear to her that there is considerable risk in treating her aggressively specifically further decline, multiorgan failure and subsequent . Alternatively, if she opts not to be treated, she is in excellent hospice candidate and palliative should be consulted immediately. At the end of the encounter, Meak imparted she wants to discuss further with her and I asked her to make a decision within the next 24 hours. Clearly, she will need to stay in house to receive chemotherapy. Will further engage in discussing specific side effects, should she decide to pursue chemotherapy. Thank you very much. I will continue to follow along with you during her hospital stay.
[2018-11-22] MEDS: TOLTERODINE TARTRATE LA 2 MG CAPCR PO SCH (12:44)
[2018-11-22] MEDS: NORETHINDRONE 5 MG TAB PO SCH ×2 (12:44→20:25)
[2018-11-22] MEDS: DULOXETINE HCL 60 MG CAP PO SCH (12:44)
[2018-11-22] MEDS: METOPROLOL TARTRATE 25 MG TAB PO SCH ×2 (12:45→20:26)
[2018-11-22] MEDS: ATORVASTATIN 40 MG TAB PO SCH (12:45)
[2018-11-22] MEDS: lamoTRIgine 100 MG TAB PO SCH (12:45)
[2018-11-22] MEDS: VITAMIN B COMPLEX TAB PO SCH (12:46)
[2018-11-22] MEDS: GABAPENTIN 250 MG/5 ML 470 ML BTL PO SCH ×3 (12:46→20:40)
[2018-11-22] MEDS: buPROPion HCl 75 MG TABLET PO SCH ×2 (12:47→20:27)
--- NOTE | 2018-11-22 14:02 | Family Medicine Progress Note ---
Addendum entered and electronically signed by Bin Ching DO 11/22/18 18: 25: Addendum (Blank) Addendum November 22, 2018 18:24 Zofran changed to q4 from q6. IV tylenol 650 one time for back pain administered. Original Note: Date of Service November 22, 2018 Assessment & Plan (1) Lesion of liver: 48yo with a complex PMHx with significant metastasis to chest, liver and bones from an unknown primary tumor, likely lung. She has dysphagia and an XU. She presented with complaints of chronic back pain. 1) Metastatic small cell carcinoma -CT of chest: "Extensive metastatic disease within the neck, chest, and visualized upper abdomen as described above. Dominant right peritracheal/hilar soft tissue mass measures up to 8.5 cm." -CT Head: No acute intracranial abnormality. -Successful ultrasound guided fine needle aspiration of a 1.4 cm upper omental nodule-->METASTATIC SMALL CELL CARCINOMA -Heme/onc: discussed diagnosis, prognosis, options moving forward. Recommend a salvage treatment with many reservations given considerable risk in aggressive tx (further decline, multiorgan failure and subsequent ). Alternatively, if she opts not to be treated, she is in excellent hospice candidate -pt requested 2nd opinion, consult placed -palliative care consult placed 2) Respiratory distress - concern of aspiration event/fluid overload 11/20. Lungs CTAB today -CXR: No change compared to the prior chest CT, Patchy nodular right mid to lower lung zone densities persist, Right hilar/paratracheal mass is again noted. 3) Dysphagia -CT chest shows likely cause--impingement from metastatic mass -Barium swallow showed mild dysmotility-otherwise normal -GI consult: Normal upper gastrointestinal series several weeks ago. Upper endoscopy is not indicated in this setting, it would not add to her care -continuing to have poor oral intake. -clear liquids currently. Will re-assess again tomorrow to advance diet -nystatin added to empirically treat for thrush. -if plan for aggressive treatment- to consider parenteral nutrition. 4) Chronic Pain -Gabapentin and Cymbalta for chronic pain. Cymbalta dose increased to 90mg to also help with new arm pain and anxiety related to dx -6-7/10 pain today. Hydrocodone resumed as likely not a cause of her acute delirium given that she tolerated well in past. Not scheduled, prn. 5) Delirium -cognition improved -Psych consult : Likely 2/2 to use of opiates, change in environment, multiple medical conditions including metastatic cancer, UTI. 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 Should return to see Dr. Chatterjee at [facility] upon discharge -Continue to follow 7) XU -Resolved. Cr .89 today -Likely pre-renal failure due to dehydration as Cr trending down with fluid hydration. Likely due to salt wasting (HZT use) and poor intake (anorexia) -Sodium random urine-for fractional excretion-calculated FeNa is 0.34%. So appropriate kidney response in holding onto sodium suggesting further a prerenal cause of the renal insufficiency. -Continue fluids, switched to NSS. -Nephrotoxic meds d/c- Diclofenac, Lisionpril, HZT 8) DM Type II -A1c-7.1 -ISS 9) Hypothyroidism -continue home meds 10) Hx of CVA -Holding ASA. Cont Plavix. Unsure why on both. Will keep her only one agent on discharge. 11) HLD -cont home meds 12) ROSIBEL -noncompliant with CPAP -Use bedtime O2 - no sign of CO2 retention. FEN/GI: NSS @80, clear liquids FULL NO MECH VENT DVT Prophylaxis: heparin Dispo: Discussing options hospice vs. tx Supervising Physician Co-Signing Physician Notes Resident Physician Supervision Note: I independently interviewed and examined the patient and verified the morrison history and physical, reviewed labs and image studies, discussed the case with the resident Dr. Ching and agree with the findings and care plan. Subjective 48 y/o F found in bed this morning looking lethargic, no improvement from yesterday. Pt's daughter reports no acute overnight events. Abd pain ongoing. Pt tolerating PO intake of clear liquids. Pt'd delirium appears to be improving from admission. No issues voiding. Pt unable to ambulate. Pt reports no other acute concerns or complaints. Physical Exam 2 Vital Signs (Past 24 Hours): Last Vital Signs Temp 36.5 C 11/22/18 11:31 Pulse 111 H 11/22/18 11:31 Resp 20 11/22/18 11:31 BP 142/94 H 11/22/18 11:31 Pulse Ox 90 11/22/18 11:31 Constitutional: WD/WN, vitals as above + obese Eyes: PERRL, conjunctivae normal, anicteric sclerae ENMT: external ear and nose normal, oropharynx normal Respiratory: Audible stridor without stethoscope Cardiovascular: RRR, no murmur, no edema Gastrointestinal (Abdomen): normal bowel sounds, soft, nontender, no hepatosplenomegaly Skin: no rashes, warm and dry Psychiatric: Affect: + flat affect Results & Data Laboratory Results Laboratory Results - last 24 hr 11/21/18 11/21/18 11/21/18 16:32 20:15 20:18 WBC RBC Hgb Hct MCV MCH MCHC RDW Std Deviation RDW Coeff of Rayray Plt Count MPV Immature Gran % (Auto) Neut % (Auto) Lymph % (Auto) [place] % (Auto) Eos % (Auto) Baso % (Auto) Immature Gran # (Auto) Neut # (Auto) Lymph # (Auto) [place] # (Auto) Eos # (Auto) Baso # (Auto) Absolute Nucleated RBC Nucleated RBC % (auto) Sodium Potassium Chloride Carbon Dioxide Anion Gap BUN Creatinine Est Cr Clr Drug Dosing Est GFR ( Amer) Est GFR (Non-Af Amer) BUN/Creatinine Ratio Glucose POC Glucose 131 H 477 H* 142 H Calcium Total Bilirubin AST ALT Alkaline Phosphatase Total Protein Albumin Globulin Albumin/Globulin Ratio 11/21/18 11/21/18 11/22/18 20:19 23:58 06:00 WBC RBC Hgb Hct MCV MCH MCHC RDW Std Deviation RDW Coeff of Rayray Plt Count MPV Immature Gran % (Auto) Neut % (Auto) Lymph % (Auto) [place] % (Auto) Eos % (Auto) Baso % (Auto) Immature Gran # (Auto) Neut # (Auto) Lymph # (Auto) [place] # (Auto) Eos # (Auto) Baso # (Auto) Absolute Nucleated RBC Nucleated RBC % (auto) Sodium 141 Potassium 3.7 Chloride 107 Carbon Dioxide 27 Anion Gap 7.0 BUN 21 H Creatinine 0.89 Est Cr Clr Drug Dosing 85.8 Est GFR ( Amer) 88.8 Est GFR (Non-Af Amer) 76.6 BUN/Creatinine Ratio 23.2 H Glucose 99 POC Glucose 177 H 137 H Calcium 10.6 H Total Bilirubin 0.5 AST 59 H ALT 36 Alkaline Phosphatase 53 Total Protein 6.7 Albumin 2.2 L Globulin 4.5 H Albumin/Globulin Ratio 0.5 L 11/22/18 11/22/18 11/22/18 06:00 07:38 11:55 WBC 8.09 RBC 4.70 Hgb 12.9 Hct 39.5 MCV 84.0 MCH 27.4 MCHC 32.7 RDW Std Deviation 49.9 H RDW Coeff of Rayray 16.4 H Plt Count 194 MPV 10.1 Immature Gran % (Auto) 5.7 Neut % (Auto) 68.2 Lymph % (Auto) 14.8 [place] % (Auto) 9.4 Eos % (Auto) 1.4 Baso % (Auto) 0.5 Immature Gran # (Auto) 0.46 H Neut # (Auto) 5.52 Lymph # (Auto) 1.20 [place] # (Auto) 0.76 H Eos # (Auto) 0.11 Baso # (Auto) 0.04 Absolute Nucleated RBC 0.13 H Nucleated RBC % (auto) 1.6 Sodium Potassium Chloride Carbon Dioxide Anion Gap BUN Creatinine Est Cr Clr Drug Dosing Est GFR ( Amer) Est GFR (Non-Af Amer) BUN/Creatinine Ratio Glucose POC Glucose 135 H 139 H Calcium Total Bilirubin AST ALT Alkaline Phosphatase Total Protein Albumin Globulin Albumin/Globulin Ratio Medications Administered Current Inpatient Medications Acetaminophen (Tylenol) 650 mg PO Q4H PRN PRN Reason: Pain or Fever Stop: 12/21/18 08:58 Last Admin: 11/21/18 09:11 Dose: 650 mg Hydrocodone Bitart/Acetaminophen (Lortab) 10 ml PO QID PRN PRN Reason: Pain Stop: 12/05/18 09:12 Last Admin: 11/21/18 18:30 Dose: 10 ml Albuterol (Ventolin Hfa) 2 puffs INH Q6H PRN PRN Reason: Shortness Of Breath Stop: 12/14/18 21:14 Albuterol (Ventolin 0.083% 2.5mg/3ml) 2.5 mg NEB Q6R PRN PRN Reason: Cough Stop: 12/20/18 16:36 Aspirin (Ecotrin Ectab) 81 mg PO DAILY TARA Stop: 12/15/18 08:59 Last Admin: 11/15/18 09:01 Dose: 81 mg Atorvastatin Calcium (Lipitor) 80 mg PO DAILY COUNT INCLUDES THE [facility] Stop: 12/15/18 08:59 Last Admin: 11/22/18 12:45 Dose: Not Given Bupropion HCl (Wellbutrin) 75 mg PO BID COUNT INCLUDES THE [facility] Stop: 12/17/18 20:59 Last Admin: 11/22/18 12:47 Dose: Not Given Buspirone HCl (Buspar) 15 mg PO DAILY TARA Stop: 12/18/18 08:59 Last Admin: 11/22/18 12:44 Dose: Not Given Clopidogrel Bisulfate (Plavix) 75 mg PO DAILY COUNT INCLUDES THE [facility] Stop: 12/15/18 08:59 Last Admin: 11/15/18 09:02 Dose: 75 mg Clotrimazole (Mycelex) 10 mg BUCCAL [id number] COUNT INCLUDES THE [facility] Stop: 12/01/18 10:59 Last Admin: 11/22/18 12:48 Dose: Not Given Dextrose (Dextrose 50%) 25 - 50 ml IV UD PRN; Protocol PRN Reason: Hypoglycemia Protocol Stop: 12/14/18 20:28 Docusate Sodium (Colace) 100 mg PO BID COUNT INCLUDES THE [facility] Stop: 12/14/18 20:59 Last Admin: 11/16/18 08:37 Dose: 100 mg Duloxetine HCl (Cymbalta) 60 mg PO DAILY COUNT INCLUDES THE [facility] Stop: 12/18/18 08:59 Last Admin: 11/22/18 12:44 Dose: Not Given Furosemide (Lasix Soln) 20 mg PO DAILY PRN PRN Reason: FLUID RETENTION Stop: 12/21/18 09:06 Gabapentin (Neurontin) 800 mg PO TID COUNT INCLUDES THE [facility] Stop: 12/15/18 10:59 Last Admin: 11/22/18 12:46 Dose: Not Given Glucagon (Glucagen) 1 mg SQ UD PRN; Protocol PRN Reason: Hypoglycemia Protocol Stop: 12/14/18 20:28 Glucose (Glucose 40%) 15 - 30 gm PO UD PRN; Protocol PRN Reason: Hypoglycemia Protocol Stop: 12/14/18 20:28 Glucose (Dex4 Glucose) 4 - 8 tabs PO UD PRN; Protocol PRN Reason: Hypoglycemia Protocol Stop: 12/14/18 20:28 Heparin Sodium (Porcine) (Heparin Sodium (Porcine)) 5,000 units SQ Q8 TARA Stop: 12/14/18 22:59 Last Admin: 11/22/18 06:05 Dose: 5,000 units Sodium Chloride (Nss 1000ml) 1,000 mls @ 80 mls/hr IV .[id number] COUNT INCLUDES THE [facility] Stop: 12/16/18 10:44 Last Infusion: 11/21/18 21:29 Dose: Infused Insulin Aspart (Novolog Flexpen) 0 units SC ACHS COUNT INCLUDES THE [facility] Stop: 12/14/18 20:59 Last Admin: 11/22/18 12:58 Dose: Not Given Ipratropium [place] (Atrovent Nasal [place] 0.06%) 1 sprays MELISSA BID PRN PRN Reason: NASAL CONGESTION Stop: 12/14/18 21:44 Lamotrigine (Lamictal) 150 mg PO DAILY COUNT INCLUDES THE [facility] Stop: 12/18/18 08:59 Last Admin: 11/22/18 12:45 Dose: Not Given Latanoprost (Xalatan Oph) 1 drops OP BID COUNT INCLUDES THE [facility] Stop: 12/15/18 20:59 Last Admin: 11/22/18 09:09 Dose: Not Given Levobunolol HCl (Betagan 0.5% Oph) 1 drops OP BID COUNT INCLUDES THE [facility] Stop: 12/15/18 20:59 Last Admin: 11/22/18 09:09 Dose: Not Given Levothyroxine Sodium (Synthroid) 25 mcg PO DAILYBB COUNT INCLUDES THE [facility] Stop: 12/15/18 06:29 Last Admin: 11/22/18 06:06 Dose: 25 mcg Loperamide HCl (Imodium A-D Liquid) 2 mg PO Q3H PRN PRN Reason: after each loose stool PRN Stop: 12/21/18 09:19 Lubiprostone (Amitiza) 24 mcg PO BID COUNT INCLUDES THE [facility] Stop: 12/14/18 21:59 Last Admin: 11/16/18 08:40 Dose: 24 mcg Magnesium Hydroxide (Milk Of Magnesia) 30 ml PO Q6H PRN PRN Reason: Constipation Stop: 12/14/18 20:28 Metoprolol Tartrate (Lopressor) 25 mg PO BID COUNT INCLUDES THE [facility] Stop: 12/16/18 20:59 Last Admin: 11/22/18 12:45 Dose: Not Given Miscellaneous (Order Awaiting Action) 1 ea N/A QS COUNT INCLUDES THE [facility] Stop: 12/15/18 00:00 Last Admin: 11/22/18 09:09 Dose: Not Given Miscellaneous (Carbohydrates For Hypoglycemia) 15 - 30 gm PO UD PRN PRN Reason: Hypoglycemia Treatment Stop: 12/14/18 20:28 Miscellaneous (Order Awaiting Action) 1 ea N/A QS COUNT INCLUDES THE [facility] Stop: 12/15/18 00:00 Last Admin: 11/22/18 09:09 Dose: Not Given Miscellaneous (Order Awaiting Action) 1 ea N/A QS TARA Stop: 12/15/18 00:00 Last Admin: 11/22/18 09:09 Dose: Not Given Norethindrone (Aygestin) 5 mg PO BID TARA Stop: 12/14/18 20:59 Last Admin: 11/22/18 12:44 Dose: Not Given Ondansetron HCl (Zofran) 4 mg IV Q6H PRN PRN Reason: Nausea Stop: 12/14/18 20:28 Last Admin: 11/22/18 09:04 Dose: 4 mg Polyethylene Glycol (Miralax Powder Packet) 17 gm PO BID TARA Stop: 12/14/18 20:59 Last Admin: 11/22/18 09:09 Dose: Not Given Psyllium Hydrophilic Mucilloid (Metamucil) 1 pkt PO QAM COUNT INCLUDES THE [facility] Stop: 12/15/18 08:59 Last Admin: 11/22/18 09:09 Dose: Not Given Tolterodine Tartrate (Detrol La) 2 mg PO DAILY COUNT INCLUDES THE [facility] Stop: 12/15/18 08:59 Last Admin: 11/22/18 12:44 Dose: Not Given Vitamin B Complex (Vitamin B Complex) 1 tab PO QAM COUNT INCLUDES THE [facility] Stop: 12/15/18 08:59 Last Admin: 11/22/18 12:46 Dose: Not Given Resident Activity Tracking Resident Involvement: Resident Care Provided Care Provided: Adult Hospital Medicine
--- NOTE | 2018-11-22 14:42 | Oncology Consultation ---
Date of Consultation November 22, 2018 Assessment & Plan (1) SCLC (small cell lung carcinoma): * Advised patient/family that have reviewed the records and the primary medical oncology documentation * Discussed that she has incurable small cell carcinoma as she is extensive stage * She has PS 4 in past month prior to this hospitalization * She apparently knew she had a malignancy by Sep 2018 but put off appropriate testing and biopsy due to other issues, stating she had a bronchitis complicating her health in late Sep 2018 * Discussed with her poor performance status, that systemic treatment is typically not recommended, that risks usually outweigh the benefits * Discussed complications of chemotherapy including but not limited to pancytopenia, symptomatic anemia, infection, bleeding, worsening weakness, N/V/ bowel changes, dehydration, metabolic complications * She may be at higher risk for these complications due to her poor performance status * Her primary oncology team has advised that proceeding with palliative chemo in controlled setting in hospital could be pursued despite significant reservations * Discussed with patient/family that palliative carboplatin/etoposide days 1-3/ 21 day cycle would be standard, Dr. Willson has suggested that if primary oncology team did pursue palliative systemic treatment that significant dose reduction should be considered due to concern of toxicity * Advised patient/family that if they do pursue palliative systemic treatment that they should get started urgently due to her rapidly worsening dysphagia and respiratory symptoms * The primary oncology service plans to follow up with patient/family in next 24 hrs to discuss final decision * She has a poor overall prognosis given extensive stage and hypercalcemia of malignancy * Consider CT/MRI of thoracic spine to definitively r/o cord compression as reason for her significant weakness * Dr. Willson has recommended a brain MRI to definitively r/o brain mets (ct prior was negative) since SCLC has proclivity for SLASH TRIMMER mets * Thanks for the consult. Dr Willson is attending medical oncologist- please see her addendum * Attending note: I performed a history and physical on the patient and discussed with Ania Cortez PA-C regarding recommendations and confirmed the findings in the history and physical, please see her note for full details of the history and physical and impression/plan 48 year old female with history of diabetes HTNm TIA asthma hypothyroidism, bipolar disorder ROSIBEL and now with diagnosis of extensive stage small cell lung cancer with mets to lymph nodes liver and bones She is admitted after fall with back pain and left lower extremity pain She has generalized weakness had delirium during this admission also has elevated calcium likely from her underlying small cell lung cancer ECOG PS is 4 currently Gen: chronically ill appearing HEENT: Anicteric Lungs: no wheezes anteriorly, patient declined to turn for exam states unable due to back pain CV: S1 S2 RRR Abd: obese soft NT/ND Ext: no edema Neuro: alert and oriented x 3 +generalized weakness Imp: Extensive stage small cell lung cancer - I discussed with the patient and her daughter and regarding the diagnosis and treatment options Discussed benefits/risks of palliative chemotherapy with carboplatin and etoposide including but not limited to alopecia, fatigue, nausea vomiting mucositis, decreased appetite, neutropenic fever and life threatening infection , anemia and low platelets and risk of bleeding and possibility of requiring transfusion, allergic reaction, dehydration, electroylte abnormalities, acute kidney injury and . If she decided on chemotherapy would recommend dose reduction and in the inpatient setting due to her poor overall performance status. I also had a wesley discussion with her and her family that her cancer is not curable and the overall poor intermediate prognosis of extensive stage small cell lung cancer in her current state with poor performance status. As she has not had a brain MRI and given her weakness and propensity for brain mets with small cell lung cancer would recommend brain MRI. CT scan without contrast is limited in this setting to rule out brain mets. She is undecided about brain MRI at this time, said due to claustrophobia but will consider and let primary team know her decision. If she has brain mets palliative RT can be considered. Patient is undecided about chemotherapy and will let Dr Camarena know her wishes when she decide Palliative care/best supportive care is reasonable given her poor overall performance status ECOG PS 4 and if she does not wish to pursue palliative chemotherapy treatment. I also called and spoke to her son as well. thanks for consult (2) Declining performance status: (3) Bony metastasis: (4) Hypercalcemia: (5) Swallowing difficulty: History of Present Illness Attending Physician: Dipika Ramos MD History of Present Illness Ms. German is a 48-year-old female new to the consulting Medical Oncology Service. The consult has been ordered by the hospitalist group regarding a 2nd opinion in this oncology patient. She has a past medical history of type 2 diabetes, COPD, morbid obesity, nonspecific psychiatric history, ROSIBEL. Review of the records reveals that the [facility]cology group was consulted initially on 11/16/2018 when the patient was admitted to [facility] for ongoing issues with dysphagia. She had issues dating back for the past few months, at least 3, with dysphagia, weight loss of 20-30 lb, generally weak. When she was in the ER in October 2018 for her complaints, CT scan of the abdomen/pelvis showed indeterminate lesions in the liver and peritoneal metastatic disease. She apparently left the ER in October 2018 AMA. Her workup has since revealed extensive stage small cell lung cancer. The [facility] oncologist met with the patient today and her family in follow-up. It is reported that the patient has poor performance status and so palliative systemic treatment has not been definitively recommended. It is stated that if she wanted to pursue palliative treatment that it could be done with their group but with significant reservations. recent pertinent labs: Ca 10.6 today, AST 59, albumin 2.2 FNA from 11/19/18: SOFT TISSUE, UPPER OMENTAL NODULE, ULTRASOUND-GUIDED FINE NEEDLE ASPIRATION: - METASTATIC SMALL CELL CARCINOMA (SEE COMMENT) COMMENT: The FNA specimen shows numerous collections of tumor cells within a background of small lymphocytes and necrosis. The tumor cells show high nuclear: cytoplasmic ratios, nuclear molding and finely dispersed chromatin. Immunohistochemistry is positive for neuroendocrine markers, consistent with the diagnosis. There are no organ specific immunohistochemical markers for small cell carcinoma and clinical/radiologic correlation for the primary site is recommended. Imaging during this hospitalization: CT abd/pelvis from 11/14/18: There is no evidence of solid organ injury in the abdomen or pelvis on this unenhanced examination. There is an enlarging right hepatic lobe mass lesion, as well as numerous enlarging peritoneal nodules as compared to 10/24/2018. These are new from 2011 and highly concerning for neoplasm. There are several subtle osteolytic bone lesions. These are also highly concerning for metastatic disease. Small nonobstructing right renal calculi. Small to moderate pericardial effusion, unchanged from 10/24/2018. There is an enlarged right ovary versus exophytic uterine fibroid. Nonemergent follow-up with pelvic ultrasound is recommended. Additional history obtained from the patient at bedside. CT lumbar from 11/14/18: No fractures within the lumbar spine. Considerable degenerative change CT chest from 11/15/18: There is a 5.7 cm mass within the right hepatic lobe which likely represents an extensive disease. Periportal lymphadenopathy multiple scattered retroperitoneal and peritoneal nodules are again noted within the upper abdomen. There is right lower cervical/supraclavicular and right axillary lymphadenopathy. Dominant right lower cervical lymph node measures 4.2 cm. There is extensive right paratracheal/right hilar soft tissue abnormality consistent with metastatic disease. This nearly encases the mid to distal trachea. This also partially encases the left mainstem bronchus and completely encases the right mainstem bronchus and right lobar bronchi. There appears to be occlusion of the right upper lobe bronchus and right middle lobe bronchus due to this soft tissue mass/lymphadenopathy. There is mild to moderate narrowing of the bronchus intermedius. This also encases the distal right main pulmonary artery and abuts the right side of the aortic arch. This soft tissue mass partially encases the innominate artery. Multiple additional enlarged anterior mediastinal lymph nodes consistent with metastatic disease. Small pericardial effusion is noted. The dominant metastatic mass/confluent lymphadenopathy measures up to 8.5 cm. There is a healing left lateral seventh rib fracture. This could be pathologic. Suspect scattered tiny lytic lesions within the visualized osseous structures. This likely represents metastatic disease. No pneumothorax. Mild emphysema. A 3 mm nodule within the left lower lobe on image 219. This was not present on the prior study and is concerning for a septic focus. There are 3 focal areas of consolidation within the periphery the right upper lobe with the largest measuring 3.2 cm. These are concerning for metastatic disease. Consolidation within the right middle lobe posteriorly favors atelectasis. A 5 mm nodule within the right middle lobe which also likely represents metastatic disease. Reticulonodular interstitial thickening within the right upper lobe which may be due to a postobstructive pneumonitis versus lymphangitic carcinomatosis. Head CT from 11/15/18: No acute intracranial abnormality. Additional history obtained from the patient/children/ at bedside. She reports over the past month she has been basically bedridden, requires help to get out of bed and shower/get clothed. She states she gets easily dyspneic with any exertion and having cough productive of phlegm/scant blood. She also states her knees are severely arthritic so this has limited her ability to be mobile, apparently was on long acting morphine and PRN hydrocodone at home for years due to back pain and knee pain. These meds were stopped when she was admitted to the hospital as she had delirium. Now she is taking hydrocodone with little relief of her pain. She denies headaches or dizziness. She has had significant dysphagia due to her locally advanced tumor and over past few days she has not been able to take solid foods by mouth; she was vomiting up solid foods in past month. She is drinking little. Her BMs are loose in past few days. No edema issues. Allergies Allergy/AdvReac Type Severity Reaction Status Date / Time aripiprazole Allergy Intermediate confused Verified 11/14/18 16:22 cephalexin Allergy Unknown HIVES Unverified 11/14/18 16:22 Sulfa (Sulfonamide Allergy Unknown . Verified 11/14/18 16:22 Antibiotics) Home Medications Home Medications Medication Instructions Recorded Confirmed Type albuterol sulfate [ProAir HFA] 2 puff INHALATION Q6H PRN 10/24/18 11/14/18 History amlodipine 5 mg PO DAILY 10/24/18 11/14/18 History aspirin [Aspirin Low Dose] 81 mg PO DAILY 10/24/18 11/14/18 History atorvastatin 80 mg PO DAILY 10/24/18 11/14/18 History blood glucose control, normal 10/24/18 11/14/18 History [OneTouch Ultra Control] bupropion HCl 75 mg PO TID 10/24/18 11/14/18 History clopidogrel 75 mg PO DAILY 10/24/18 11/14/18 History diclofenac sodium 75 mg PO BID 10/24/18 11/14/18 History docusate sodium [Colace] 100 mg PO BID 10/24/18 11/14/18 History duloxetine 60 mg PO DAILY 10/24/18 11/14/18 History fluticasone furoate [Arnuity 1 inh INHALATION DAILY 10/24/18 11/14/18 History Ellipta] furosemide 20 mg PO DAILY PRN 10/24/18 11/14/18 History gabapentin 800 mg PO TID 10/24/18 11/14/18 History glipizide 10 mg PO BID 10/24/18 11/14/18 History ipratropium bromide 2 spray INTRANASAL BID PRN 10/24/18 11/14/18 History lamotrigine 150 mg PO BID 10/24/18 11/14/18 History levothyroxine 25 mcg PO DAILY 10/24/18 11/14/18 History lidocaine [Aspercreme (lidocaine)] 1 patch TOPICAL BID 10/24/18 11/14/18 History lubiprostone [Amitiza] 24 mcg PO BID 10/24/18 11/14/18 History metoprolol tartrate 50 mg PO BID 10/24/18 11/14/18 History pioglitazone 45 mg PO DAILY 10/24/18 11/14/18 History polyethylene glycol 3350 [Miralax] 17 g PO BID 10/24/18 11/14/18 History psyllium husk [Metamucil] 0.52 g PO DAILY 10/24/18 11/14/18 History sitagliptin [Januvia] 100 mg PO DAILY 10/24/18 11/14/18 History tolterodine 2 mg PO DAILY 10/24/18 11/14/18 History umeclidinium-vilanterol [Anoro 1 inh INHALATION DAILY 10/24/18 11/14/18 History Ellipta] B complex-vitamin C-folic acid 1 tab PO DAILY 11/14/18 11/14/18 History buspirone 15 mg PO BID 11/14/18 11/14/18 History hydrocodone-acetaminophen 1 tab PO TID PRN 11/14/18 11/14/18 History lisinopril 20 mg PO DAILY 11/14/18 11/14/18 History morphine 15 mg PO TID PRN 11/14/18 11/14/18 History norethindrone acetate 5 mg PO BID 11/14/18 11/14/18 History triamterene-hydrochlorothiazid 1 tab PO DAILY 11/14/18 11/14/18 History Patient History Medical History Chronic back pain (Chronic) History of TIA (transient ischemic attack) (Chronic) History of asthma (Chronic) History of kidney stones (Chronic) History of diabetes mellitus (Chronic) History of hypertension (Chronic) Family History Mother Heart attack Social History Current Living Situation: Spouse Other Information That Helps Us Care for You: No Feels Safe at Home: Yes Smoking Status: Current every day smoker Tobacco Type: cigarettes Cigarettes per Day: 18 Do You Dip or Chew Tobacco: No Second Hand Exposure: Yes Tobacco Cessation Education Requested by Patient: Yes Hx Alcohol Use: No Hx Substance Use: No Beliefs That Will Affect Care: None Communication Ability: Unable Review of Systems See HPI Physical Exam 2 Vital Signs (Past 24 Hours): Last Vital Signs Temp 36.5 C 11/22/18 11:31 Pulse 111 H 11/22/18 11:31 Resp 20 11/22/18 11:31 BP 142/94 H 11/22/18 11:31 Pulse Ox 90 11/22/18 11:31 Constitutional: well developed, well nourished and + obese Respiratory: normal respiratory effort Auscultation: + diminished lung sounds Cardiovascular: Rate/Rhythm: regular rate and regular rhythm Gastrointestinal (Abdomen): Inspection/Auscultation: normal bowel sounds Percussion/Palpation: abdomen soft; abdomen nontender Skin: no rashes, warm and dry Neurologic: awake Lymphatic: no cervical lymphadenopathy Results & Data Laboratory Results As reviewed in HPI Diagnostic Findings As reviewed in HPI
--- NOTE | 2018-11-22 17:59 | Palliative Care Consultation ---
Date of Consultation November 22, 2018 Assessment & Plan (1) Palliative care encounter: Patient seen and examined-, daughter, son and [id number] at bedside. Patient is a 48-year-old female with a past medical history of diabetes, hypertension, TIA, asthma, bipolar disorder, anxiety, hypothyroid, ROSIBEL- noncompliant with CPAP, who presented to the emergency room on 11/14 for back pain and left lower extremity pain after a fall out of bed at home. Patient also noted dysphasia for solids-she stopped some of her medications - of note her psychiatric meds. Patient was found to have a liver mass suspicious for cancer during an ER visit in October. Patient did not follow-up for further workup. CT scan on this admission showed a liver mass, peritoneal masses, diffuse adenopathy, bone metastases. 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 Patient was seen by oncology- due to her poor performance status did not feel that chemotherapy would be of benefit. Patient is awaiting a second opinion from [facility] oncology. Discussed some of patient's treatment options including chemotherapy-educated patient on questions to ask the oncologist in regards to severity of side effects, effectiveness of chemo, etc. Also discussed that if she chose not to undergo any further treatment she could go home under hospice care and be assured of comfort. Patient voiced understanding options been we will continue to follow to assist patient and family with medical decision making. - Metastatic small cell lung cancer-due to poor performance status not a great candidate for aggressive chemotherapy-Patient and family awaiting second opinion from [facility] oncology. - Delirium-present on exam, was felt to be secondary to narcotics-would recommend judicial use of narcotics for pain - Dysphasia likely due to adenopathy, likely metastatic disease Will continue to follow and assist patient and family with medical decision making. (2) Declining performance status: Her poor performance status impacts her ability to tolerate chemo (3) SCLC (small cell lung carcinoma): Metastatic-liver mass, peritoneal masses, adenopathy, and bone lesions (4) Delirium: Improved (5) Swallowing difficulty: Likely due to paratracheal adenopathy-aspiration precautions History of Present Illness Reason for Consultation: Discuss goals of care, assist with medical decision making Requesting Physician: Dr Aurelio Ching Attending Physician: Dipika Ramos MD History of Present Illness Patient seen and examined-, daughter, son and [id number] at bedside. Patient is a 48-year-old female with a past medical history of diabetes, hypertension, TIA, asthma, bipolar disorder, anxiety, hypothyroid, ROSIBEL- noncompliant with CPAP, who presented to the emergency room on 11/14 for back pain and left lower extremity pain after a fall out of bed at home. Patient also noted dysphasia for solids-she stopped some of her medications - of note her psychiatric meds. Patient was found to have a liver mass suspicious for cancer during an ER visit in October. Patient did not follow-up for further workup. CT scan on this admission showed a liver mass, peritoneal masses, diffuse adenopathy, bone metastases. 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 Patient was seen by oncology- due to her poor performance status did not feel that chemotherapy would be of benefit. Patient is awaiting a second opinion from [facility] oncology. 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 Discussed some of patient's treatment options including chemotherapy-educated patient on questions to ask the oncologist in regards to severity of side effects, effectiveness of chemo, etc. Also discussed that if she chose not to undergo any further treatment she could go home under hospice care and be assured of comfort. Patient and family voiced understanding options been we will continue to follow to assist patient and family with medical decision making. Allergies Allergy/AdvReac Type Severity Reaction Status Date / Time aripiprazole Allergy Intermediate confused Verified 11/14/18 16:22 cephalexin Allergy Unknown HIVES Unverified 11/14/18 16:22 Sulfa (Sulfonamide Allergy Unknown . Verified 11/14/18 16:22 Antibiotics) Home Medications Home Medications Medication Instructions Recorded Confirmed Type albuterol sulfate [ProAir HFA] 2 puff INHALATION Q6H PRN 10/24/18 11/14/18 History amlodipine 5 mg PO DAILY 10/24/18 11/14/18 History aspirin [Aspirin Low Dose] 81 mg PO DAILY 10/24/18 11/14/18 History atorvastatin 80 mg PO DAILY 10/24/18 11/14/18 History blood glucose control, normal 10/24/18 11/14/18 History [OneTouch Ultra Control] bupropion HCl 75 mg PO TID 10/24/18 11/14/18 History clopidogrel 75 mg PO DAILY 10/24/18 11/14/18 History diclofenac sodium 75 mg PO BID 10/24/18 11/14/18 History docusate sodium [Colace] 100 mg PO BID 10/24/18 11/14/18 History duloxetine 60 mg PO DAILY 10/24/18 11/14/18 History fluticasone furoate [Arnuity 1 inh INHALATION DAILY 10/24/18 11/14/18 History Ellipta] furosemide 20 mg PO DAILY PRN 10/24/18 11/14/18 History gabapentin 800 mg PO TID 10/24/18 11/14/18 History glipizide 10 mg PO BID 10/24/18 11/14/18 History ipratropium bromide 2 spray INTRANASAL BID PRN 10/24/18 11/14/18 History lamotrigine 150 mg PO BID 10/24/18 11/14/18 History levothyroxine 25 mcg PO DAILY 10/24/18 11/14/18 History lidocaine [Aspercreme (lidocaine)] 1 patch TOPICAL BID 10/24/18 11/14/18 History lubiprostone [Amitiza] 24 mcg PO BID 10/24/18 11/14/18 History metoprolol tartrate 50 mg PO BID 10/24/18 11/14/18 History pioglitazone 45 mg PO DAILY 10/24/18 11/14/18 History polyethylene glycol 3350 [Miralax] 17 g PO BID 10/24/18 11/14/18 History psyllium husk [Metamucil] 0.52 g PO DAILY 10/24/18 11/14/18 History sitagliptin [Januvia] 100 mg PO DAILY 10/24/18 11/14/18 History tolterodine 2 mg PO DAILY 10/24/18 11/14/18 History umeclidinium-vilanterol [Anoro 1 inh INHALATION DAILY 10/24/18 11/14/18 History Ellipta] B complex-vitamin C-folic acid 1 tab PO DAILY 11/14/18 11/14/18 History buspirone 15 mg PO BID 11/14/18 11/14/18 History hydrocodone-acetaminophen 1 tab PO TID PRN 11/14/18 11/14/18 History lisinopril 20 mg PO DAILY 11/14/18 11/14/18 History morphine 15 mg PO TID PRN 11/14/18 11/14/18 History norethindrone acetate 5 mg PO BID 11/14/18 11/14/18 History triamterene-hydrochlorothiazid 1 tab PO DAILY 11/14/18 11/14/18 History Patient History Medical History Chronic back pain (Chronic) History of TIA (transient ischemic attack) (Chronic) History of asthma (Chronic) History of kidney stones (Chronic) History of diabetes mellitus (Chronic) History of hypertension (Chronic) Family History Mother Heart attack Social History Current Living Situation: Spouse Other Information That Helps Us Care for You: No Feels Safe at Home: Yes Smoking Status: Current every day smoker Tobacco Type: cigarettes Cigarettes per Day: 18 Do You Dip or Chew Tobacco: No Second Hand Exposure: Yes Tobacco Cessation Education Requested by Patient: Yes Hx Alcohol Use: No Hx Substance Use: No Beliefs That Will Affect Care: None Communication Ability: Unable Review of Systems Eyes: no problem reported Ear, Nose, Mouth, Throat: + dysphagia Respiratory: + cough and + dyspnea Cardiovascular: + dyspnea Gastrointestinal: + dysphagia Genitourinary (Female): no problem reported Musculoskeletal: + back pain and + muscle weakness Left leg pain Hypopigmented lesions Neurologic: + generalized weakness Anxiety, bipolar disorder Physical Exam 2 Vital Signs (Past 24 Hours): Last Vital Signs Temp 36.5 C 11/22/18 16:04 Pulse 109 H 11/22/18 16:04 Resp 20 11/22/18 16:04 BP 131/93 11/22/18 16:04 Pulse Ox 90 11/22/18 16:04 Constitutional: + obese NAD Eyes: EOMI ENMT: Normal hearing Respiratory: Coarse breath sounds bilaterally, no wheezing, slight increased work of breathing Cardiovascular: Regular rate Gastrointestinal (Abdomen): Obese, soft, nontender Musculoskeletal: Generalized weakness Skin: Scattered hypopigmented areas on upper extremity Neurologic: No focal deficits Psychiatric: Flat affect Time Spent Attending Total time spent 50 minutes with greater than 50% of the time spent at bedside educating patient on questions to ask oncology when she receives her second opinion as well as discussed treatment options.
[2018-11-22] MEDS ORDERED: ACETAMINOPHEN 65 ML IV ONE (18:05)
[2018-11-23] MEDS: HEPARIN SOD 5,000 UNIT/0.5 ML VIAL SQ SCH ×3 (05:56→21:51)
[2018-11-23] MEDS: LEVOTHYROXINE SODIUM 25 MCG TABLET PO SCH (06:00)
[2018-11-23] MEDS: ONDANSETRON INJ 2 MG/ML 2 ML VIAL IV PRN ×3 (06:08→22:19)
[2018-11-23 06:35] LABS: Basophils # (auto) 0.06 K/uL (0-0.2); Basophils % (auto) 0.7 %; Eosinophils # (auto) 0.08 K/uL (0-0.5); Hematocrit (blood only) 39.7 % (37-47); Hemoglobin 12.9 g/dL (12.0-16.0); Immature Granulocytes # (auto) 0.39 K/uL (0.00-0.02); Immature Granulocytes % (auto) 4.8 %; Lymphocytes # (auto) 1.26 K/uL (1.2-3.4); Lymphocytes % (auto) 15.4 %; Mean Corpuscular Hgb Conc 32.5 g/dL (32-36); Mean Corpuscular Volume 84.3 fL (80-100); Mean Platelet Volume 10.4 fL (7.4-10.4); Monocytes # (auto) 0.81 K/uL (0.11-0.59); Monocytes % (auto) 9.9 %; Neutrophils # (auto) 5.56 K/uL (1.4-6.5); Neutrophils % (auto) 68.2 %; Nucleated RBC # (auto) 0.15 K/uL (0-0); Nucleated RBC % (auto) 1.9 %; Platelet Count 196 K/uL (130-400); RDW Coefficient of Variation 16.5 % (11.5-14.5); RDW Standard Deviation 50.7 fL (36.4-46.3); Red Blood Count 4.71 M/uL (4.2-5.4); White Blood Count 8.16 K/uL (4.8-10.8)
[2018-11-23 07:10] LABS: Albumin Level 2.2 gm/dl (3.4-5.0); BUN Creatinine Ratio 24.4 (10-20); Calcium 10.3 mg/dl (8.5-10.1); Creatinine Clr Calc Pharmacy 86.7 ml/min; Est GFR (African American) 91.3; Est GFR (Non-African American) 78.8; Potassium 3.7 mmol/L (3.5-5.1)
[2018-11-23 07:12] LABS: Albumin Globulin Ratio 0.5 (0.9-2); Bilirubin,Total 0.6 mg/dl (0.2-1); Globulin 4.7 gm/dl (2.5-4.0); Total Protein 6.9 gm/dl (6.4-8.2)
[2018-11-23] MEDS: PSYLLIUM 58.6% POWDER PACKET PO SCH (08:52)
[2018-11-23] MEDS: LEVOBUNOLOL HCL 0.5% OP SOLN 5 ML BTL OP SCH ×2 (08:52→21:50)
[2018-11-23] MEDS: LATANOPROST 0.005% OP SOLN 2.5 ML BTL OP SCH ×2 (08:52→21:50)
[2018-11-23] MEDS: POLYETHYLENE (MIRALAX) 17 GM PACK PO SCH ×2 (08:52→21:51)
[2018-11-23] MEDS: CLOTRIMAZOLE 10 MG TROCHE BUCCAL SCH ×5 (08:53→22:47)
[2018-11-23] MEDS: METOPROLOL TARTRATE 25 MG TAB PO SCH ×2 (08:54→21:56)
[2018-11-23] MEDS: INSULIN ASPART 100 UNITS/ML 3 ML PEN SC SCH ×4 (08:54→21:51)
[2018-11-23] MEDS: VITAMIN B COMPLEX TAB PO SCH (08:55)
[2018-11-23] MEDS: ATORVASTATIN 40 MG TAB PO SCH (08:57)
[2018-11-23] MEDS: TOLTERODINE TARTRATE LA 2 MG CAPCR PO SCH (08:59)
[2018-11-23] MEDS: DULOXETINE HCL 60 MG CAP PO SCH (08:59)
[2018-11-23] MEDS: lamoTRIgine 100 MG TAB PO SCH (09:08)
[2018-11-23] MEDS: buPROPion HCl 75 MG TABLET PO SCH ×2 (09:09→21:57)
[2018-11-23] MEDS: CLOPIDOGREL BISULFATE 75 MG TAB PO SCH (09:09)
[2018-11-23] MEDS: NORETHINDRONE 5 MG TAB PO SCH ×2 (09:09→21:57)
[2018-11-23] MEDS: GABAPENTIN 250 MG/5 ML 470 ML BTL PO SCH ×3 (09:09→21:51)
--- NOTE | 2018-11-23 14:09 | Progress Note ---
DATE: 11/23/2018 MEDICAL ONCOLOGY PROGRESS NOTE DIAGNOSES: 1. Extensive small cell carcinoma. 2. Respiratory distress. 3. Dysphagia. 4. Chronic pain syndrome. 5. Delirium. 6. Bipolar disorder. 7. Urinary tract infection. 8. Type 2 diabetes mellitus. 9. Obstructive sleep apnea. SUBJECTIVE: Meka was seen at bedside accompanied by both her and daughter today. Again, the purpose for today's visit was to further discuss the utility of salvage chemotherapy. As I previously stated, I recommend combination carboplatin and etoposide with significant reservation. Very concerned Meka's performance status is not improved dramatically. She has taken in minimal p.o. nutrients. She continues to vergara with pain issues and according to Meka is pending MRI of the brain later on today. The patient's daughter is requesting the end of the weekend before making final decision to receive salvage chemotherapy versus palliative care. Nursing reports no other difficulties. PHYSICAL EXAMINATION: GENERAL: Morbidly obese 48-year-old female patient, in no acute distress. VITAL SIGNS: Temperature 36.4, pulse 97, respiratory rate 20, blood pressure 148/95. SKIN: Without rash or lesion. HEENT: Oral mucosa is clear. HEART: Regular rate and rhythm. LUNGS: Clear to auscultation. ABDOMEN: Obese, soft, nontender, nondistended. EXTREMITIES: No clubbing, cyanosis or edema. NEUROLOGIC: Grossly intact. LABORATORY DATA: WBC count 8160, hemoglobin 12.9, platelet count 196,000. Sodium 143, potassium 3.7, chloride 108, carbon dioxide 27, BUN 21, creatinine 0.87, albumin 2.2. IMPRESSION: 1. Extensive small cell lung cancer. 2. Failing performance status. 3. Hypoalbuminemia. 4. Anorexia. PLAN: Again, visited with Meka and her family to discuss where we are clinically. Clearly, Meka's performance status is suboptimal and I make the suggestion of chemotherapy with a fair amount of reluctance. Ultimately, I do not think she is going to do well either way, her prognosis is exceedingly poor, survival measured in weeks at this juncture. Honestly, I am somewhat hopeful that she opts to pursue palliative care as I do not think there is much benefit to be gained even with modified dose of combination chemotherapy, I do not anticipate Meka doing well. Nonetheless, as requested by Meka and her family, they want to take another 24 hours or so to make a final decision on chemotherapy, will make sure Bony has copies of the chemotherapy orders in case she decides to push on. I have nothing further to offer and Dr. Lovett will be taking over service on Sunday. If you have questions or concerns, feel free to contact me. RODNEY
[2018-11-23] MEDS: HYDROCODONE/APAP 2.5MG/108MG ELIX 5 ML UDP PO PRN (15:19)
--- NOTE | 2018-11-23 15:21 | Family Medicine Progress Note ---
Date of Service November 23, 2018 Assessment & Plan (1) SCLC (small cell lung carcinoma): 48yo with a complex PMHx with significant metastasis to chest, liver and bones from an unknown primary tumor, likely lung. She has dysphagia and an XU. She presented with complaints of chronic back pain. 1) Metastatic small cell carcinoma -CT of chest: "Extensive metastatic disease within the neck, chest, and visualized upper abdomen as described above. Dominant right peritracheal/hilar soft tissue mass measures up to 8.5 cm." -CT Head: No acute intracranial abnormality. -Successful ultrasound guided fine needle aspiration of a 1.4 cm upper omental nodule-->METASTATIC SMALL CELL CARCINOMA -Heme/onc: discussed diagnosis, prognosis, options moving forward. Recommend a salvage treatment with many reservations given considerable risk in aggressive tx (further decline, multiorgan failure and subsequent ). Alternatively, if she opts not to be treated, she is in excellent hospice candidate -In speaking with [facility] (Dr. Willson), pt opts to have Brain MRI to r/ o mets done tomorrow. States has family coming over today. -palliative care visited. Family would like additional 24 hrs to make decision going forward 2) Respiratory distress - concern of aspiration event/fluid overload 11/20. Lungs CTAB today -CXR: No change compared to the prior chest CT, Patchy nodular right mid to lower lung zone densities persist, Right hilar/paratracheal mass is again noted. 3) Dysphagia -CT chest shows likely cause--impingement from metastatic mass -Barium swallow showed mild dysmotility-otherwise normal -GI consult: Normal upper gastrointestinal series several weeks ago. Upper endoscopy is not indicated in this setting, it would not add to her care -continuing to have poor oral intake. -clear liquids currently. Will re-assess again tomorrow to advance diet -nystatin added to empirically treat for thrush. -if plan for aggressive treatment- to consider parenteral nutrition. 4) Chronic Pain -Gabapentin and Cymbalta for chronic pain. Cymbalta dose increased to 90mg to also help with new arm pain and anxiety related to dx -6-7/10 pain today. Hydrocodone resumed as likely not a cause of her acute delirium given that she tolerated well in past. Not scheduled, prn. 5) Delirium -cognition improved -Psych consult : Likely 2/2 to use of opiates, change in environment, multiple medical conditions including metastatic cancer, UTI. 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 Should return to see Dr. Chatterjee at [facility] upon discharge -Continue to follow 7) XU -Resolved. Cr .87 today -Likely pre-renal failure due to dehydration as Cr trending down with fluid hydration. Likely due to salt wasting (HZT use) and poor intake (anorexia) -Sodium random urine-for fractional excretion-calculated FeNa is 0.34%. So appropriate kidney response in holding onto sodium suggesting further a prerenal cause of the renal insufficiency. -Continue fluids, switched to NSS. -Nephrotoxic meds d/c- Diclofenac, Lisionpril, HZT 8) DM Type II -A1c-7.1 -ISS 9) Hypothyroidism -continue home meds 10) Hx of CVA -Holding ASA. Cont Plavix. Unsure why on both. Will keep her only one agent on discharge. 11) HLD -cont home meds 12) ROSIBEL -noncompliant with CPAP -Use bedtime O2 - no sign of CO2 retention. FEN/GI: NSS @80, clear liquids FULL NO MECH VENT DVT Prophylaxis: heparin Dispo: Discussing options hospice vs. tx Supervising Physician Co-Signing Physician Notes Resident Physician Supervision Note: I independently interviewed and examined the patient and verified the morrison history and physical, reviewed labs and image studies, discussed the case with the resident Dr. Ching and agree with the findings and care plan. Subjective 48 y/o F found in bed this morning looking lethargic, no improvement from yesterday. Pt's daughter reports no acute overnight events. Abd pain ongoing. Pt tolerating PO intake of clear liquids. Pt'd delirium appears to be improving from admission. No issues voiding. Pt unable to ambulate. Pt reports no other acute concerns or complaints. Still contemplating course going forward with family. Physical Exam 2 Vital Signs (Past 24 Hours): Last Vital Signs Temp 36.4 C L 11/23/18 11:25 Pulse 96 H 11/23/18 11:25 Resp 20 11/23/18 11:25 BP 148/95 H 11/23/18 11:25 Pulse Ox 90 11/23/18 11:25 Constitutional: WD/WN, vitals as above + obese Eyes: PERRL, conjunctivae normal, anicteric sclerae ENMT: external ear and nose normal, oropharynx normal Respiratory: CTA anteriorly, not able to assess posterior lung damon Cardiovascular: RRR, no murmur, no edema Gastrointestinal (Abdomen): normal bowel sounds, soft, nontender, no hepatosplenomegaly Skin: no rashes, warm and dry Psychiatric: Affect: + flat affect Results & Data Laboratory Results Laboratory Results - last 24 hr 11/17/18 11/22/18 11/22/18 10:57 16:37 20:39 WBC RBC Hgb Hct MCV MCH MCHC RDW Std Deviation RDW Coeff of Rayray Plt Count MPV Immature Gran % (Auto) Neut % (Auto) Lymph % (Auto) Alexander % (Auto) Eos % (Auto) Baso % (Auto) Immature Gran # (Auto) Neut # (Auto) Lymph # (Auto) Alexander # (Auto) Eos # (Auto) Baso # (Auto) Absolute Nucleated RBC Nucleated RBC % (auto) Sodium Potassium Chloride Carbon Dioxide Anion Gap BUN Creatinine Est Cr Clr Drug Dosing Est GFR ( Amer) Est GFR (Non-Af Amer) BUN/Creatinine Ratio Glucose POC Glucose 120 H 115 H Calcium Total Bilirubin AST ALT Alkaline Phosphatase Total Protein Albumin Globulin Albumin/Globulin Ratio PTH Related Protein 10 L 11/23/18 11/23/18 11/23/18 05:58 05:58 07:39 WBC 8.16 RBC 4.71 Hgb 12.9 Hct 39.7 MCV 84.3 MCH 27.4 MCHC 32.5 RDW Std Deviation 50.7 H RDW Coeff of Rayray 16.5 H Plt Count 196 MPV 10.4 Immature Gran % (Auto) 4.8 Neut % (Auto) 68.2 Lymph % (Auto) 15.4 Alexander % (Auto) 9.9 Eos % (Auto) 1.0 Baso % (Auto) 0.7 Immature Gran # (Auto) 0.39 H Neut # (Auto) 5.56 Lymph # (Auto) 1.26 Alexander # (Auto) 0.81 H Eos # (Auto) 0.08 Baso # (Auto) 0.06 Absolute Nucleated RBC 0.15 H Nucleated RBC % (auto) 1.9 Sodium 143 Potassium 3.7 Chloride 108 H Carbon Dioxide 27 Anion Gap 8.0 BUN 21 H Creatinine 0.87 Est Cr Clr Drug Dosing 86.7 Est GFR ( Amer) 91.3 Est GFR (Non-Af Amer) 78.8 BUN/Creatinine Ratio 24.4 H Glucose 90 POC Glucose 116 H Calcium 10.3 H Total Bilirubin 0.6 AST 57 H ALT 33 Alkaline Phosphatase 54 Total Protein 6.9 Albumin 2.2 L Globulin 4.7 H Albumin/Globulin Ratio 0.5 L PTH Related Protein 11/23/18 11:47 WBC RBC Hgb Hct MCV MCH MCHC RDW Std Deviation RDW Coeff of Rayray Plt Count MPV Immature Gran % (Auto) Neut % (Auto) Lymph % (Auto) Alexander % (Auto) Eos % (Auto) Baso % (Auto) Immature Gran # (Auto) Neut # (Auto) Lymph # (Auto) Alexander # (Auto) Eos # (Auto) Baso # (Auto) Absolute Nucleated RBC Nucleated RBC % (auto) Sodium Potassium Chloride Carbon Dioxide Anion Gap BUN Creatinine Est Cr Clr Drug Dosing Est GFR ( Amer) Est GFR (Non-Af Amer) BUN/Creatinine Ratio Glucose POC Glucose 161 H Calcium Total Bilirubin AST ALT Alkaline Phosphatase Total Protein Albumin Globulin Albumin/Globulin Ratio PTH Related Protein Medications Administered Current Inpatient Medications Acetaminophen (Tylenol) 650 mg PO Q4H PRN PRN Reason: Pain or Fever Stop: 12/21/18 08:58 Last Admin: 11/21/18 09:11 Dose: 650 mg Hydrocodone Bitart/Acetaminophen (Lortab) 10 ml PO QID PRN PRN Reason: Pain Stop: 12/05/18 09:12 Last Admin: 11/23/18 15:19 Dose: 10 ml Albuterol (Ventolin Hfa) 2 puffs INH Q6H PRN PRN Reason: Shortness Of Breath Stop: 12/14/18 21:14 Albuterol (Ventolin 0.083% 2.5mg/3ml) 2.5 mg NEB Q6R PRN PRN Reason: Cough Stop: 12/20/18 16:36 Aspirin (Ecotrin Ectab) 81 mg PO DAILY TARA Stop: 12/15/18 08:59 Last Admin: 11/15/18 09:01 Dose: 81 mg Atorvastatin Calcium (Lipitor) 80 mg PO DAILY TARA Stop: 12/15/18 08:59 Last Admin: 11/23/18 08:57 Dose: Not Given Bupropion HCl (Wellbutrin) 75 mg PO BID [facility] Stop: 12/17/18 20:59 Last Admin: 11/23/18 09:09 Dose: Not Given Buspirone HCl (Buspar) 15 mg PO DAILY TARA Stop: 12/18/18 08:59 Last Admin: 11/23/18 08:54 Dose: 15 mg Clopidogrel Bisulfate (Plavix) 75 mg PO DAILY [facility] Stop: 12/15/18 08:59 Last Admin: 11/23/18 09:09 Dose: Not Given Clotrimazole (Mycelex) 10 mg BUCCAL [id number] TARA Stop: 12/01/18 10:59 Last Admin: 11/23/18 14:12 Dose: Not Given Dextrose (Dextrose 50%) 25 - 50 ml IV UD PRN; Protocol PRN Reason: Hypoglycemia Protocol Stop: 12/14/18 20:28 Docusate Sodium (Colace) 100 mg PO BID [facility] Stop: 12/14/18 20:59 Last Admin: 11/16/18 08:37 Dose: 100 mg Duloxetine HCl (Cymbalta) 60 mg PO DAILY TARA Stop: 12/18/18 08:59 Last Admin: 11/23/18 08:59 Dose: Not Given Furosemide (Lasix Soln) 20 mg PO DAILY PRN PRN Reason: FLUID RETENTION Stop: 12/21/18 09:06 Gabapentin (Neurontin) 800 mg PO TID TARA Stop: 12/15/18 10:59 Last Admin: 11/23/18 14:11 Dose: Not Given Glucagon (Glucagen) 1 mg SQ UD PRN; Protocol PRN Reason: Hypoglycemia Protocol Stop: 12/14/18 20:28 Glucose (Glucose 40%) 15 - 30 gm PO UD PRN; Protocol PRN Reason: Hypoglycemia Protocol Stop: 12/14/18 20:28 Glucose (Dex4 Glucose) 4 - 8 tabs PO UD PRN; Protocol PRN Reason: Hypoglycemia Protocol Stop: 12/14/18 20:28 Heparin Sodium (Porcine) (Heparin Sodium (Porcine)) 5,000 units SQ Q8 TARA Stop: 12/14/18 22:59 Last Admin: 11/23/18 14:10 Dose: 5,000 units Sodium Chloride (Nss 1000ml) 1,000 mls @ 80 mls/hr IV .[id number] [facility] Stop: 12/16/18 10:44 Last Infusion: 11/21/18 21:29 Dose: Infused Insulin Aspart (Novolog Flexpen) 0 units SC ACHS [facility] Stop: 12/14/18 20:59 Last Admin: 11/23/18 12:39 Dose: 2 units Ipratropium [place]stone (Atrovent Nasal Dudley 0.06%) 1 sprays MELISSA BID PRN PRN Reason: NASAL CONGESTION Stop: 12/14/18 21:44 Lamotrigine (Lamictal) 150 mg PO DAILY [facility] Stop: 12/18/18 08:59 Last Admin: 11/23/18 09:08 Dose: Not Given Latanoprost (Xalatan Oph) 1 drops OP BID [facility] Stop: 12/15/18 20:59 Last Admin: 11/23/18 08:52 Dose: Not Given Levobunolol HCl (Betagan 0.5% Oph) 1 drops OP BID [facility] Stop: 12/15/18 20:59 Last Admin: 11/23/18 08:52 Dose: Not Given Levothyroxine Sodium (Synthroid) 25 mcg PO DAILYBB [facility] Stop: 12/15/18 06:29 Last Admin: 11/23/18 06:00 Dose: 25 mcg Loperamide HCl (Imodium A-D Liquid) 2 mg PO Q3H PRN PRN Reason: after each loose stool PRN Stop: 12/21/18 09:19 Lubiprostone (Amitiza) 24 mcg PO BID [facility] Stop: 12/14/18 21:59 Last Admin: 11/16/18 08:40 Dose: 24 mcg Magnesium Hydroxide (Milk Of Magnesia) 30 ml PO Q6H PRN PRN Reason: Constipation Stop: 12/14/18 20:28 Metoprolol Tartrate (Lopressor) 25 mg PO BID [facility] Stop: 12/16/18 20:59 Last Admin: 11/23/18 08:54 Dose: 25 mg Miscellaneous (Order Awaiting Action) 1 ea N/A QS [facility] Stop: 12/15/18 00:00 Last Admin: 11/23/18 15:19 Dose: Not Given Miscellaneous (Carbohydrates For Hypoglycemia) 15 - 30 gm PO UD PRN PRN Reason: Hypoglycemia Treatment Stop: 12/14/18 20:28 Miscellaneous (Order Awaiting Action) 1 ea N/A QS [facility] Stop: 12/15/18 00:00 Last Admin: 11/23/18 15:19 Dose: Not Given Miscellaneous (Order Awaiting Action) 1 ea N/A QS TARA Stop: 12/15/18 00:00 Last Admin: 11/23/18 15:19 Dose: Not Given Norethindrone (Aygestin) 5 mg PO BID TARA Stop: 12/14/18 20:59 Last Admin: 11/23/18 09:09 Dose: Not Given Ondansetron HCl (Zofran) 4 mg IV Q4H PRN PRN Reason: Nausea Stop: 12/22/18 18:59 Last Admin: 11/23/18 12:37 Dose: 4 mg Polyethylene Glycol (Miralax Powder Packet) 17 gm PO BID [facility] Stop: 12/14/18 20:59 Last Admin: 11/23/18 08:52 Dose: Not Given Psyllium Hydrophilic Mucilloid (Metamucil) 1 pkt PO QAM TARA Stop: 12/15/18 08:59 Last Admin: 11/23/18 08:52 Dose: Not Given Tolterodine Tartrate (Detrol La) 2 mg PO DAILY [facility] Stop: 12/15/18 08:59 Last Admin: 11/23/18 08:59 Dose: Not Given Vitamin B Complex (Vitamin B Complex) 1 tab PO QAM [facility] Stop: 12/15/18 08:59 Last Admin: 11/23/18 08:55 Dose: Not Given Resident Activity Tracking Resident Involvement: Resident Care Provided Care Provided: Adult Hospital Medicine
[2018-11-24] MEDS: LEVOTHYROXINE SODIUM 25 MCG TABLET PO SCH (06:23)
[2018-11-24] MEDS: HEPARIN SOD 5,000 UNIT/0.5 ML VIAL SQ SCH ×3 (06:23→22:21)
[2018-11-24] MEDS: ONDANSETRON INJ 2 MG/ML 2 ML VIAL IV PRN (06:24)
[2018-11-24 07:06] LABS: Basophils # (auto) 0.05 K/uL (0-0.2); Basophils % (auto) 0.6 %; Eosinophils # (auto) 0.12 K/uL (0-0.5); Eosinophils % (auto) 1.5 %; Hematocrit (blood only) 40.5 % (37-47); Immature Granulocytes # (auto) 0.24 K/uL (0.00-0.02); Immature Granulocytes % (auto) 2.9 %; Lymphocytes # (auto) 1.53 K/uL (1.2-3.4); Lymphocytes % (auto) 18.6 %; Mean Corpuscular Hgb Conc 32.1 g/dL (32-36); Mean Corpuscular Volume 84.4 fL (80-100); Mean Platelet Volume 10.9 fL (7.4-10.4); Monocytes # (auto) 0.67 K/uL (0.11-0.59); Monocytes % (auto) 8.1 %; Neutrophils # (auto) 5.63 K/uL (1.4-6.5); Neutrophils % (auto) 68.3 %; Nucleated RBC # (auto) 0.12 K/uL (0-0); Nucleated RBC % (auto) 1.5 %; Platelet Count 206 K/uL (130-400); RDW Coefficient of Variation 16.7 % (11.5-14.5); RDW Standard Deviation 50.6 fL (36.4-46.3); White Blood Count 8.24 K/uL (4.8-10.8)
[2018-11-24 07:56] LABS: Albumin Globulin Ratio 0.5 (0.9-2); Albumin Level 2.2 gm/dl (3.4-5.0); BUN Creatinine Ratio 25.8 (10-20); Bilirubin,Total 0.6 mg/dl (0.2-1); Calcium 10.6 mg/dl (8.5-10.1); Creatinine Clr Calc Pharmacy 76.8 ml/min; Est GFR (African American) 79.1; Est GFR (Non-African American) 68.2; Globulin 4.9 gm/dl (2.5-4.0); Total Protein 7.1 gm/dl (6.4-8.2)
[2018-11-24] MEDS: POLYETHYLENE (MIRALAX) 17 GM PACK PO SCH ×2 (08:36→22:18)
[2018-11-24] MEDS: LEVOBUNOLOL HCL 0.5% OP SOLN 5 ML BTL OP SCH ×2 (08:36→22:19)
[2018-11-24] MEDS: VITAMIN B COMPLEX TAB PO SCH (08:36)
[2018-11-24] MEDS: INSULIN ASPART 100 UNITS/ML 3 ML PEN SC SCH ×4 (08:36→22:20)
[2018-11-24] MEDS: PSYLLIUM 58.6% POWDER PACKET PO SCH (08:36)
[2018-11-24] MEDS: LATANOPROST 0.005% OP SOLN 2.5 ML BTL OP SCH ×2 (08:36→22:20)
[2018-11-24] MEDS: ATORVASTATIN 40 MG TAB PO SCH (08:38)
[2018-11-24] MEDS: DULOXETINE HCL 60 MG CAP PO SCH (08:39)
[2018-11-24] MEDS: METOPROLOL TARTRATE 25 MG TAB PO SCH ×2 (08:39→22:20)
[2018-11-24] MEDS: TOLTERODINE TARTRATE LA 2 MG CAPCR PO SCH (08:39)
[2018-11-24] MEDS: CLOPIDOGREL BISULFATE 75 MG TAB PO SCH (08:42)
[2018-11-24] MEDS: lamoTRIgine 100 MG TAB PO SCH (08:45)
[2018-11-24] MEDS: buPROPion HCl 75 MG TABLET PO SCH ×2 (08:45→22:21)
[2018-11-24] MEDS: NORETHINDRONE 5 MG TAB PO SCH ×2 (08:46→22:18)
[2018-11-24] MEDS: CLOTRIMAZOLE 10 MG TROCHE BUCCAL SCH ×6 (08:47→22:40)
[2018-11-24] MEDS ORDERED: LORazepam 1 MG/2 ML VIAL IV STA ×2 (08:56→11:27)
[2018-11-24] MEDS: HYDROCODONE/APAP 2.5MG/108MG ELIX 5 ML UDP PO PRN ×2 (09:11→22:36)
[2018-11-24] MEDS: GABAPENTIN 250 MG/5 ML 470 ML BTL PO SCH ×4 (09:11→22:39)
--- NOTE | 2018-11-24 11:21 | Family Medicine Progress Note ---
Date of Service November 24, 2018 Assessment & Plan (1) SCLC (small cell lung carcinoma): 48yo with a complex PMHx with significant metastasis to chest, liver and bones from an unknown primary tumor, likely lung. She has dysphagia and an XU. She presented with complaints of chronic back pain. 1) Metastatic small cell carcinoma -CT of chest: "Extensive metastatic disease within the neck, chest, and visualized upper abdomen as described above. Dominant right peritracheal/hilar soft tissue mass measures up to 8.5 cm." -CT Head: No acute intracranial abnormality. -Successful ultrasound guided fine needle aspiration of a 1.4 cm upper omental nodule-->METASTATIC SMALL CELL CARCINOMA -Heme/onc: discussed diagnosis, prognosis, options moving forward. Recommend a salvage treatment with many reservations given considerable risk in aggressive tx (further decline, multiorgan failure and subsequent ). Alternatively, if she opts not to be treated, she is in excellent hospice candidate -In speaking with [facility] On[facility] (Dr. Willson-2nd opinion), pt opted to have Brain MRI this AM. Given IV Ativan 1 mg, but could not tolerate MRI 2/2 claustrophobia and MRI was cancelled -family requesting gaming surveillance observer services. RN will arrange for this. Family still contemplating options s/p MRI -did review overall poor prognosis 2) Respiratory distress - concern of aspiration event/fluid overload 11/20. Lungs CTAB today -CXR: No change compared to the prior chest CT, Patchy nodular right mid to lower lung zone densities persist, Right hilar/paratracheal mass is again noted. 3) Dysphagia -CT chest shows likely cause--impingement from metastatic mass -Barium swallow showed mild dysmotility-otherwise normal -GI consult: Normal upper gastrointestinal series several weeks ago. Upper endoscopy is not indicated in this setting, it would not add to her care -continuing to have poor oral intake. -clear liquids currently. Will re-assess again tomorrow to advance diet -nystatin added to empirically treat for thrush. -if plan for aggressive treatment- to consider parenteral nutrition. 4) Chronic Pain -Gabapentin and Cymbalta for chronic pain. Cymbalta dose increased to 90mg to also help with new arm pain and anxiety related to dx -6-7/10 pain today. Hydrocodone resumed as likely not a cause of her acute delirium given that she tolerated well in past. Not scheduled, prn. 5) Delirium -cognition improved -Psych consult : Likely 2/2 to use of opiates, change in environment, multiple medical conditions including metastatic cancer, UTI. 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 Should return to see Dr. Chatterjee at [facility] upon discharge -Continue to follow 7) XU -Resolved. Cr .98 today -Likely pre-renal failure due to dehydration as Cr trending down with fluid hydration. Likely due to salt wasting (HZT use) and poor intake (anorexia) -Sodium random urine-for fractional excretion-calculated FeNa is 0.34%. So appropriate kidney response in holding onto sodium suggesting further a prerenal cause of the renal insufficiency. -Continue fluids, switched to NSS. -Nephrotoxic meds d/c- Diclofenac, Lisionpril, HZT 8) DM Type II -A1c-7.1 -ISS 9) Hypothyroidism -continue home meds 10) Hx of CVA -Holding ASA. Cont Plavix. Unsure why on both. Will keep her only one agent on discharge. 11) HLD -cont home meds 12) ROSIBEL -noncompliant with CPAP -Use bedtime O2 - no sign of CO2 retention. FEN/GI: NSS @80, clear liquids FULL NO MECH VENT DVT Prophylaxis: heparin Dispo: Discussing options hospice vs. tx Supervising Physician Co-Signing Physician Notes Resident Physician Supervision Note: I independently interviewed and examined the patient and verified the morrison history and physical, reviewed labs and image studies, discussed the case with the resident Dr. Ching and agree with the findings and care plan. Subjective 48 y/o F found in bed this morning looking lethargic, no improvement from yesterday. Pt's daughter reports no acute overnight events. Abd pain ongoing. Pt notes episode of coughing up a little blood, it was explained that this can be expected given worsening course of lung ca. Otherwise, pt tolerating PO intake of clear liquids. Pt'd delirium appears to be improving from admission. No issues voiding. Pt unable to ambulate. Pt reports no other acute concerns or complaints. Still contemplating course going forward with family. Physical Exam 2 Vital Signs (Past 24 Hours): Last Vital Signs Temp 36.5 C 11/24/18 11:06 Pulse 90 11/24/18 11:06 Resp 20 11/24/18 11:06 BP 142/83 H 11/24/18 11:06 Pulse Ox 96 11/24/18 11:06 Constitutional: WD/WN, vitals as above + obese Eyes: PERRL, conjunctivae normal, anicteric sclerae ENMT: external ear and nose normal, oropharynx normal Respiratory: CTA anteriorly, not able to assess posterior lung damon Cardiovascular: RRR, no murmur, no edema Gastrointestinal (Abdomen): normal bowel sounds, soft, nontender, no hepatosplenomegaly Skin: no rashes, warm and dry Psychiatric: Affect: + flat affect Results & Data Laboratory Results Laboratory Results - last 24 hr 11/23/18 11/23/18 11/23/18 11:47 16:18 20:38 WBC RBC Hgb Hct MCV MCH MCHC RDW Std Deviation RDW Coeff of Rayray Plt Count MPV Immature Gran % (Auto) Neut % (Auto) Lymph % (Auto) Cole % (Auto) Eos % (Auto) Baso % (Auto) Immature Gran # (Auto) Neut # (Auto) Lymph # (Auto) Cole # (Auto) Eos # (Auto) Baso # (Auto) Absolute Nucleated RBC Nucleated RBC % (auto) Sodium Potassium Chloride Carbon Dioxide Anion Gap BUN Creatinine Est Cr Clr Drug Dosing Est GFR ( Amer) Est GFR (Non-Af Amer) BUN/Creatinine Ratio Glucose POC Glucose 161 H 130 H 134 H Calcium Total Bilirubin AST ALT Alkaline Phosphatase Total Protein Albumin Globulin Albumin/Globulin Ratio 11/24/18 11/24/18 11/24/18 06:49 06:49 07:46 WBC 8.24 RBC 4.80 Hgb 13.0 Hct 40.5 MCV 84.4 MCH 27.1 MCHC 32.1 RDW Std Deviation 50.6 H RDW Coeff of Rayray 16.7 H Plt Count 206 MPV 10.9 H Immature Gran % (Auto) 2.9 Neut % (Auto) 68.3 Lymph % (Auto) 18.6 Cole % (Auto) 8.1 Eos % (Auto) 1.5 Baso % (Auto) 0.6 Immature Gran # (Auto) 0.24 H Neut # (Auto) 5.63 Lymph # (Auto) 1.53 Cole # (Auto) 0.67 H Eos # (Auto) 0.12 Baso # (Auto) 0.05 Absolute Nucleated RBC 0.12 H Nucleated RBC % (auto) 1.5 Sodium 143 Potassium Chloride 106 Carbon Dioxide 29 Anion Gap 8.0 BUN 25 H Creatinine 0.98 Est Cr Clr Drug Dosing 76.8 Est GFR ( Amer) 79.1 Est GFR (Non-Af Amer) 68.2 BUN/Creatinine Ratio 25.8 H Glucose 90 POC Glucose 107 H Calcium 10.6 H Total Bilirubin 0.6 AST ALT 37 Alkaline Phosphatase 55 Total Protein 7.1 Albumin 2.2 L Globulin 4.9 H Albumin/Globulin Ratio 0.5 L Medications Administered Current Inpatient Medications Acetaminophen (Tylenol) 650 mg PO Q4H PRN PRN Reason: Pain or Fever Stop: 12/21/18 08:58 Last Admin: 11/21/18 09:11 Dose: 650 mg Hydrocodone Bitart/Acetaminophen (Lortab) 10 ml PO QID PRN PRN Reason: Pain Stop: 12/05/18 09:12 Last Admin: 11/24/18 09:11 Dose: 10 ml Albuterol (Ventolin Hfa) 2 puffs INH Q6H PRN PRN Reason: Shortness Of Breath Stop: 12/14/18 21:14 Albuterol (Ventolin 0.083% 2.5mg/3ml) 2.5 mg NEB Q6R PRN PRN Reason: Cough Stop: 12/20/18 16:36 Aspirin (Ecotrin Ectab) 81 mg PO DAILY [facility] Stop: 12/15/18 08:59 Last Admin: 11/15/18 09:01 Dose: 81 mg Atorvastatin Calcium (Lipitor) 80 mg PO DAILY [facility] Stop: 12/15/18 08:59 Last Admin: 11/24/18 08:38 Dose: Not Given Bupropion HCl (Wellbutrin) 75 mg PO BID [facility] Stop: 12/17/18 20:59 Last Admin: 11/24/18 08:45 Dose: Not Given Buspirone HCl (Buspar) 15 mg PO DAILY [facility] Stop: 12/18/18 08:59 Last Admin: 11/24/18 08:37 Dose: 15 mg Clopidogrel Bisulfate (Plavix) 75 mg PO DAILY [facility] Stop: 12/15/18 08:59 Last Admin: 11/24/18 08:42 Dose: Not Given Clotrimazole (Mycelex) 10 mg BUCCAL [id number] TARA Stop: 12/01/18 10:59 Last Admin: 11/24/18 10:39 Dose: Not Given Dextrose (Dextrose 50%) 25 - 50 ml IV UD PRN; Protocol PRN Reason: Hypoglycemia Protocol Stop: 12/14/18 20:28 Docusate Sodium (Colace) 100 mg PO BID TARA Stop: 12/14/18 20:59 Last Admin: 11/16/18 08:37 Dose: 100 mg Duloxetine HCl (Cymbalta) 60 mg PO DAILY [facility]ARA Stop: 12/18/18 08:59 Last Admin: 11/24/18 08:39 Dose: 60 mg Furosemide (Lasix Soln) 20 mg PO DAILY PRN PRN Reason: FLUID RETENTION Stop: 12/21/18 09:06 Gabapentin (Neurontin) 800 mg PO TID TARA Stop: 12/15/18 10:59 Last Admin: 11/24/18 09:11 Dose: Not Given Glucagon (Glucagen) 1 mg SQ UD PRN; Protocol PRN Reason: Hypoglycemia Protocol Stop: 12/14/18 20:28 Glucose (Glucose 40%) 15 - 30 gm PO UD PRN; Protocol PRN Reason: Hypoglycemia Protocol Stop: 12/14/18 20:28 Glucose (Dex4 Glucose) 4 - 8 tabs PO UD PRN; Protocol PRN Reason: Hypoglycemia Protocol Stop: 12/14/18 20:28 Heparin Sodium (Porcine) (Heparin Sodium (Porcine)) 5,000 units SQ Q8 TARA Stop: 12/14/18 22:59 Last Admin: 11/24/18 06:23 Dose: 5,000 units Sodium Chloride (Nss 1000ml) 1,000 mls @ 80 mls/hr IV .[id number] [facility] Stop: 12/16/18 10:44 Last Infusion: 11/21/18 21:29 Dose: Infused Insulin Aspart (Novolog Flexpen) 0 units SC ACHS TARA Stop: 12/14/18 20:59 Last Admin: 11/24/18 08:36 Dose: Not Given Ipratropium [place] (Atrovent Nasal [place] 0.06%) 1 sprays MELISSA BID PRN PRN Reason: NASAL CONGESTION Stop: 12/14/18 21:44 Lamotrigine (Lamictal) 150 mg PO DAILY [facility] Stop: 12/18/18 08:59 Last Admin: 11/24/18 08:45 Dose: Not Given Latanoprost (Xalatan Oph) 1 drops OP BID TARA Stop: 12/15/18 20:59 Last Admin: 11/24/18 08:36 Dose: Not Given Levobunolol HCl (Betagan 0.5% Oph) 1 drops OP BID [facility] Stop: 12/15/18 20:59 Last Admin: 11/24/18 08:36 Dose: Not Given Levothyroxine Sodium (Synthroid) 25 mcg PO DAILYBB [facility] Stop: 12/15/18 06:29 Last Admin: 11/24/18 06:23 Dose: 25 mcg Loperamide HCl (Imodium A-D Liquid) 2 mg PO Q3H PRN PRN Reason: after each loose stool PRN Stop: 12/21/18 09:19 Lubiprostone (Amitiza) 24 mcg PO BID [facility] Stop: 12/14/18 21:59 Last Admin: 11/16/18 08:40 Dose: 24 mcg Magnesium Hydroxide (Milk Of Magnesia) 30 ml PO Q6H PRN PRN Reason: Constipation Stop: 12/14/18 20:28 Metoprolol Tartrate (Lopressor) 25 mg PO BID [facility] Stop: 12/16/18 20:59 Last Admin: 11/24/18 08:39 Dose: 25 mg Miscellaneous (Order Awaiting Action) 1 ea N/A QS [facility] Stop: 12/15/18 00:00 Last Admin: 11/24/18 08:35 Dose: Not Given Miscellaneous (Carbohydrates For Hypoglycemia) 15 - 30 gm PO UD PRN PRN Reason: Hypoglycemia Treatment Stop: 12/14/18 20:28 Miscellaneous (Order Awaiting Action) 1 ea N/A QS [facility] Stop: 12/15/18 00:00 Last Admin: 11/24/18 08:35 Dose: Not Given Miscellaneous (Order Awaiting Action) 1 ea N/A QS [facility] Stop: 12/15/18 00:00 Last Admin: 11/24/18 08:35 Dose: Not Given Norethindrone (Aygestin) 5 mg PO BID [facility] Stop: 12/14/18 20:59 Last Admin: 02/17/19 08:46 Dose: Not Given Ondansetron HCl (Zofran) 4 mg IV Q4H PRN PRN Reason: Nausea Stop: 12/22/18 18:59 Last Admin: 11/24/18 06:24 Dose: 4 mg Polyethylene Glycol (Miralax Powder Packet) 17 gm PO BID [facility] Stop: 12/14/18 20:59 Last Admin: 11/24/18 08:36 Dose: Not Given Psyllium Hydrophilic Mucilloid (Metamucil) 1 pkt PO QAM [facility] Stop: 12/15/18 08:59 Last Admin: 11/24/18 08:36 Dose: Not Given Tolterodine Tartrate (Detrol La) 2 mg PO DAILY [facility] Stop: 12/15/18 08:59 Last Admin: 11/24/18 08:39 Dose: 2 mg Vitamin B Complex (Vitamin B Complex) [facility] [place] 12/15/18 08:59 Last Admin: 11/24/18 08:36 Dose: Not Given Resident Activity Tracking Resident Involvement: Resident Care Provided Care Provided: Adult Hospital Medicine
[2018-11-25] MEDS: HYDROCODONE/APAP 2.5MG/108MG ELIX 5 ML UDP PO PRN ×3 (04:54→21:15)
[2018-11-25] MEDS: HEPARIN SOD 5,000 UNIT/0.5 ML VIAL SQ SCH ×2 (06:15→13:46)
[2018-11-25] MEDS: LEVOTHYROXINE SODIUM 25 MCG TABLET PO SCH (06:15)
[2018-11-25 07:15] LABS: Basophils # (auto) 0.06 K/uL (0-0.2); Basophils % (auto) 0.8 %; Eosinophils # (auto) 0.13 K/uL (0-0.5); Eosinophils % (auto) 1.7 %; Hematocrit (blood only) 41.2 % (37-47); Hemoglobin 13.2 g/dL (12.0-16.0); Immature Granulocytes # (auto) 0.19 K/uL (0.00-0.02); Immature Granulocytes % (auto) 2.5 %; Lymphocytes # (auto) 1.42 K/uL (1.2-3.4); Lymphocytes % (auto) 18.3 %; Mean Corpuscular Volume 84.9 fL (80-100); Mean Platelet Volume 10.2 fL (7.4-10.4); Monocytes # (auto) 0.65 K/uL (0.11-0.59); Monocytes % (auto) 8.4 %; Neutrophils % (auto) 68.3 %; Nucleated RBC # (auto) 0.09 K/uL (0-0); Nucleated RBC % (auto) 1.2 %; Platelet Count 197 K/uL (130-400); RDW Coefficient of Variation 16.4 % (11.5-14.5); RDW Standard Deviation 50.2 fL (36.4-46.3); Red Blood Count 4.85 M/uL (4.2-5.4); White Blood Count 7.75 K/uL (4.8-10.8)
[2018-11-25 07:58] LABS: Albumin Level 2.3 gm/dl (3.4-5.0); BUN Creatinine Ratio 31.3 (10-20); Calcium 10.8 mg/dl (8.5-10.1); Creatinine Clr Calc Pharmacy 86.4 ml/min; Est GFR (African American) 91.3; Est GFR (Non-African American) 78.8; Potassium 3.8 mmol/L (3.5-5.1)
[2018-11-25 08:01] LABS: Albumin Globulin Ratio 0.5 (0.9-2); Bilirubin,Total 0.5 mg/dl (0.2-1); Globulin 4.8 gm/dl (2.5-4.0); Total Protein 7.1 gm/dl (6.4-8.2)
[2018-11-25] MEDS: ONDANSETRON INJ 2 MG/ML 2 ML VIAL IV PRN ×2 (08:26→13:42)
[2018-11-25] MEDS: INSULIN ASPART 100 UNITS/ML 3 ML PEN SC SCH ×4 (08:29→21:01)
[2018-11-25] MEDS: CLOTRIMAZOLE 10 MG TROCHE BUCCAL SCH ×5 (08:29→22:55)
[2018-11-25] MEDS: LEVOBUNOLOL HCL 0.5% OP SOLN 5 ML BTL OP SCH ×2 (08:30→21:04)
[2018-11-25] MEDS: NORETHINDRONE 5 MG TAB PO SCH ×2 (08:30→21:02)
[2018-11-25] MEDS: lamoTRIgine 100 MG TAB PO SCH (08:31)
[2018-11-25] MEDS: TOLTERODINE TARTRATE LA 2 MG CAPCR PO SCH (08:31)
[2018-11-25] MEDS: DULOXETINE HCL 60 MG CAP PO SCH (08:31)
[2018-11-25] MEDS: POLYETHYLENE (MIRALAX) 17 GM PACK PO SCH ×2 (08:32→21:00)
[2018-11-25] MEDS: METOPROLOL TARTRATE 25 MG TAB PO SCH ×2 (08:32→21:02)
[2018-11-25] MEDS: PSYLLIUM 58.6% POWDER PACKET PO SCH (08:32)
[2018-11-25] MEDS: ATORVASTATIN 40 MG TAB PO SCH (08:32)
[2018-11-25] MEDS: VITAMIN B COMPLEX TAB PO SCH (08:33)
[2018-11-25] MEDS: LATANOPROST 0.005% OP SOLN 2.5 ML BTL OP SCH ×2 (08:33→21:04)
[2018-11-25] MEDS: buPROPion HCl 75 MG TABLET PO SCH ×2 (08:33→21:01)
[2018-11-25] MEDS: CLOPIDOGREL BISULFATE 75 MG TAB PO SCH (08:33)
[2018-11-25] MEDS: GABAPENTIN 250 MG/5 ML 470 ML BTL PO SCH ×3 (08:58→21:01)
--- NOTE | 2018-11-25 15:43 | Palliative Care Progress Note ---
Date of Service November 25, 2018 Assessment & Plan (1) Palliative care encounter: Patient seen and examined-daughter, and sister at bedside. Patient is a 48-year-old female with a past medical history of diabetes, hypertension, TIA, asthma, bipolar disorder, anxiety, hypothyroid, ROSIBEL- noncompliant with CPAP, who presented to the emergency room on 11/14 for back pain and left lower extremity pain after a fall out of bed at home. Patient also noted dysphasia for solids-she stopped some of her medications - of note her psychiatric meds. Patient was found to have a liver mass suspicious for cancer during an ER visit in October. Patient did not follow-up for further workup. CT scan on this admission showed a liver mass, peritoneal masses, diffuse adenopathy, bone metastases. 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 Patient was seen by oncology- due to her poor performance status did not feel that chemotherapy would be of benefit. Patient is received a second opinion from [facility] oncology-they also do not recommend chemotherapy due to her poor PPS. -Patient's goal is to return home under hospice care. Discussed with patient and family what to expect at home, daughter concerned regarding prognosis- explained that hospice will update her as they see changes. - Metastatic small cell lung cancer-due to poor performance status not a great candidate for aggressive chemotherapy - Delirium-resolved - Dysphasia likely due to adenopathy, likely metastatic disease Will continue to follow and assist patient and family with medical decision making. Goal is to return home under hospice care. (2) Declining performance status: Her poor performance status impacts her ability to tolerate chemo (3) SCLC (small cell lung carcinoma): Metastatic-liver mass, peritoneal masses, adenopathy, and bone lesions (4) Delirium: Resolved (5) Swallowing difficulty: Likely due to paratracheal adenopathy-aspiration precautions Subjective Patient seen and examined, patient's daughter and sister at bedside. Patient more alert and interactive on exam today. Patient stated her decision is to go home with hospice care. Review of Systems Patient denies pain, fever, chills, shortness of breath, or GI issues. Physical Exam 2 Vital Signs (Past 24 Hours): Last Vital Signs Temp 36.4 C L 11/25/18 15:35 Pulse 94 H 11/25/18 15:35 Resp 16 11/25/18 15:35 BP 141/88 H 11/25/18 15:35 Pulse Ox 98 11/25/18 15:35 Physical Exam: PE: No acute distress HEENT: EOMI, normal hearing Respiratory: Unlabored, no wheezes CV: Regular rate Abdomen: Soft nontender, obese Neuro: Alert and oriented x4 Time Spent Attending Total time spent 35 minutes with greater than 50% of the time spent at bedside discussing goals of care, answering questions from family regarding hospice care and prognosis.
--- NOTE | 2018-11-25 16:22 | Family Medicine Progress Note ---
Date of Service November 25, 2018 Assessment & Plan (1) SCLC (small cell lung carcinoma): 48yo with a complex PMHx with significant metastasis to chest, liver and bones from an unknown primary tumor, likely lung. She has dysphagia and an XU. She presented with complaints of chronic back pain. 1) Metastatic small cell carcinoma -CT of chest: "Extensive metastatic disease within the neck, chest, and visualized upper abdomen as described above. Dominant right peritracheal/hilar soft tissue mass measures up to 8.5 cm." -CT Head: No acute intracranial abnormality. -Successful ultrasound guided fine needle aspiration of a 1.4 cm upper omental nodule-->METASTATIC SMALL CELL CARCINOMA -Heme/onc: discussed diagnosis, prognosis, options moving forward. Recommend a salvage treatment with many reservations given considerable risk in aggressive tx (further decline, multiorgan failure and subsequent ). Alternatively, if she opts not to be treated, she is in excellent hospice candidate -In [facility] with [facility] (Dr. Willson-2nd opinion), pt opted to have Brain MRI 09/23. Given IV Ativan 1 mg, but could not tolerate MRI 2/2 claustrophobia and MRI was cancelled -Pal care: Patient's goal is to return home under hospice care. Will work on making arrangements. 2) Respiratory distress - concern of aspiration event/fluid overload 11/20. Lungs CTAB today -CXR: No change compared to the prior chest CT, Patchy nodular right mid to lower lung zone densities persist, Right hilar/paratracheal mass is again noted. 3) Dysphagia -CT chest shows likely cause--impingement from metastatic mass -Barium swallow showed mild dysmotility-otherwise normal -GI consult: Normal upper gastrointestinal series several weeks ago. Upper endoscopy is not indicated in this setting, it would not add to her care -continuing to have poor oral intake. -clear liquids currently -nystatin added to empirically treat for thrush. 4) Chronic Pain -Gabapentin and Cymbalta for chronic pain. Cymbalta dose increased to 90mg to also help with new arm pain and anxiety related to dx -6-7/10 pain today. Hydrocodone resumed as likely not a cause of her acute delirium given that she tolerated well in past. Not scheduled, prn. 5) Delirium -cognition improved -Psych consult : Likely 2/2 to use of opiates, change in environment, multiple medical conditions including metastatic cancer, UTI. 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 Should return to see Dr. Chatterjee at [facility] upon discharge -Continue to follow 7) XU -Resolved. Cr .87 today -Initially likely pre-renal failure due to dehydration as Cr trending down with fluid hydration. Likely due to salt wasting (HZT use) and poor intake (anorexia) -Sodium random urine-for fractional excretion-calculated FeNa is 0.34%. So appropriate kidney response in holding onto sodium suggesting further a prerenal cause of the renal insufficiency. -Continue fluids, switched to NSS. -Nephrotoxic meds d/c- Diclofenac, Lisionpril, HZT 8) DM Type II -A1c-7.1 -ISS 9) Hypothyroidism -continue home meds 10) Hx of CVA -Holding ASA. Cont Plavix. Unsure why on both. Will keep her only one agent on discharge. 11) HLD -cont home meds 12) ROSIBEL -noncompliant with CPAP -Use bedtime O2 - no sign of CO2 retention. FEN/GI: NSS @80, clear liquids FULL NO MECH VENT--will discuss moving forward DVT Prophylaxis: heparin d/c Dispo: Home hospice, arrangements being made Supervising Physician Co-Signing Physician Notes I personally examined the patient and verified all morrison points of history and exam, discussed case, and agree with decision making with Dr Humza hammer reasonable but wonders if it could be a little better. otherwise wants to go home with hospice. vitals noted nad breathing unlabored no pallor or icterus stage 4 lung cancer - home/hospice once situation able to be set up. otherwise as above Subjective 48 y/o F found in bed this morning looking lethargic, no improvement from yesterday. Pt's daughter reports no acute overnight events. Abd/back pain ongoing. Pt notes episode of coughing up a little blood, it was explained that this can be expected given worsening course of lung ca. Otherwise, pt tolerating PO intake of clear liquids, able to drink a milkshake today. Pt'd delirium appears to be improving from admission. No issues voiding. Pt unable to ambulate. Pt reports no other acute concerns or complaints. Pt has decided to pursue home hospice. Physical Exam 2 Vital Signs (Past 24 Hours): Last Vital Signs Temp 36.4 C L 11/25/18 15:35 Pulse 94 H 11/25/18 15:35 Resp 16 11/25/18 15:35 BP 141/88 H 11/25/18 15:35 Pulse Ox 98 11/25/18 15:35 Constitutional: WD/WN, vitals as above + obese Eyes: PERRL, conjunctivae normal, anicteric sclerae ENMT: external ear and nose normal, oropharynx normal Respiratory: CTA anteriorly, not able to assess posterior lung damon Cardiovascular: RRR, no murmur, no edema Gastrointestinal (Abdomen): normal bowel sounds, soft, nontender, no hepatosplenomegaly Skin: no rashes, warm and dry Psychiatric: Orientation: alert and oriented x 3 Affect: + anxious affect Results & Data Laboratory Results Laboratory Results - last 24 hr 11/24/18 11/24/18 11/25/18 16:32 20:17 06:59 WBC 7.75 RBC 4.85 Hgb 13.2 Hct 41.2 MCV 84.9 MCH 27.2 MCHC 32.0 RDW Std Deviation 50.2 H RDW Coeff of Rayray 16.4 H Plt Count 197 MPV 10.2 Immature Gran % (Auto) 2.5 Neut % (Auto) 68.3 Lymph % (Auto) 18.3 [place] % (Auto) 8.4 Eos % (Auto) 1.7 Baso % (Auto) 0.8 Immature Gran # (Auto) 0.19 H Neut # (Auto) 5.30 Lymph # (Auto) 1.42 [place] # (Auto) 0.65 H Eos # (Auto) 0.13 Baso # (Auto) 0.06 Absolute Nucleated RBC 0.09 H Nucleated RBC % (auto) 1.2 Sodium Potassium Chloride Carbon Dioxide Anion Gap BUN Creatinine Est Cr Clr Drug Dosing Est GFR ( Amer) Est GFR (Non-Af Amer) BUN/Creatinine Ratio Glucose POC Glucose 103 H 125 H Calcium Total Bilirubin AST ALT Alkaline Phosphatase Total Protein Albumin Globulin Albumin/Globulin Ratio 11/25/18 11/25/18 11/25/18 06:59 07:40 11:32 WBC RBC Hgb Hct MCV MCH MCHC RDW Std Deviation RDW Coeff of Rayray Plt Count MPV Immature Gran % (Auto) Neut % (Auto) Lymph % (Auto) [place] % (Auto) Eos % (Auto) Baso % (Auto) Immature Gran # (Auto) Neut # (Auto) Lymph # (Auto) [place] # (Auto) Eos # (Auto) Baso # (Auto) Absolute Nucleated RBC Nucleated RBC % (auto) Sodium 141 Potassium 3.8 Chloride 104 Carbon Dioxide 29 Anion Gap 8.0 BUN 27 H Creatinine 0.87 Est Cr Clr Drug Dosing 86.4 Est GFR ( Amer) 91.3 Est GFR (Non-Af Amer) 78.8 BUN/Creatinine Ratio 31.3 H Glucose 97 POC Glucose 114 H 99 Calcium 10.8 H Total Bilirubin 0.5 AST 79 H ALT 43 Alkaline Phosphatase 58 Total Protein 7.1 Albumin 2.3 L Globulin 4.8 H Albumin/Globulin Ratio 0.5 L Medications Administered Current Inpatient Medications Acetaminophen (Tylenol) 650 mg PO Q4H PRN PRN Reason: Pain or Fever Stop: 12/21/18 08:58 Last Admin: 11/21/18 09:11 Dose: 650 mg Hydrocodone Bitart/Acetaminophen (Lortab) 10 ml PO QID PRN PRN Reason: Pain Stop: 12/05/18 09:12 Last Admin: 11/25/18 13:42 Dose: 10 ml Albuterol (Ventolin Hfa) 2 puffs INH Q6H PRN PRN Reason: Shortness Of Breath Stop: 12/14/18 21:14 Albuterol (Ventolin 0.083% 2.5mg/3ml) 2.5 mg NEB Q6R PRN PRN Reason: Cough Stop: 12/20/18 16:36 Aspirin (Ecotrin Ectab) 81 mg PO DAILY [facility] Stop: 12/15/18 08:59 Last Admin: 11/15/18 09:01 Dose: 81 mg Atorvastatin Calcium (Lipitor) 80 mg PO DAILY [facility] Stop: 12/15/18 08:59 Last Admin: 11/25/18 08:32 Dose: Not Given Bupropion HCl (Wellbutrin) 75 mg PO BID [facility] Stop: 12/17/18 20:59 Last Admin: 11/25/18 08:33 Dose: Not Given Buspirone HCl (Buspar) 15 mg PO DAILY [facility] Stop: 12/18/18 08:59 Last Admin: 11/25/18 08:30 Dose: 15 mg Clopidogrel Bisulfate (Plavix) 75 mg PO DAILY [facility] Stop: 12/15/18 08:59 Last Admin: 11/25/18 08:33 Dose: Not Given Clotrimazole (Mycelex) 10 mg BUCCAL [id number] [facility] Stop: 12/01/18 10:59 Last Admin: 11/25/18 13:47 Dose: 10 mg Dextrose (Dextrose 50%) 25 - 50 ml IV UD PRN; Protocol PRN Reason: Hypoglycemia Protocol Stop: 12/14/18 20:28 Docusate Sodium (Colace) 100 mg PO BID [facility] Stop: 12/14/18 20:59 Last Admin: 11/16/18 08:37 Dose: 100 mg Duloxetine HCl (Cymbalta) 60 mg PO DAILY [facility] Stop: 12/18/18 08:59 Last Admin: 11/25/18 08:31 Dose: 60 mg Furosemide (Lasix Soln) 20 mg PO DAILY PRN PRN Reason: FLUID RETENTION Stop: 12/21/18 09:06 Gabapentin (Neurontin) 800 mg PO TID [facility] Stop: 12/15/18 10:59 Last Admin: 11/25/18 13:46 Dose: Not Given Glucagon (Glucagen) 1 mg SQ UD PRN; Protocol PRN Reason: Hypoglycemia Protocol Stop: 12/14/18 20:28 Glucose (Glucose 40%) 15 - 30 gm PO UD PRN; Protocol PRN Reason: Hypoglycemia Protocol Stop: 12/14/18 20:28 Glucose (Dex4 Glucose) 4 - 8 tabs PO UD PRN; Protocol PRN Reason: Hypoglycemia Protocol Stop: 12/14/18 20:28 Sodium Chloride (Nss 1000ml) 1,000 mls @ 80 mls/hr IV .[id number] [facility] Stop: 12/16/18 10:44 Last Infusion: 11/21/18 21:29 Dose: Infused Insulin Aspart (Novolog Flexpen) 0 units SC ACHS [facility] Stop: 12/14/18 20:59 Last Admin: 11/25/18 12:14 Dose: Not Given Ipratropium Liberty (Atrovent Nasal Shedd 0.06%) 1 sprays MELISSA BID PRN PRN Reason: NASAL CONGESTION Stop: 12/14/18 21:44 Lamotrigine (Lamictal) 150 mg PO DAILY [facility] Stop: 12/18/18 08:59 Last Admin: 11/25/18 08:31 Dose: Not Given Latanoprost (Xalatan Oph) 1 drops OP BID [facility] Stop: 12/15/18 20:59 Last Admin: 11/25/18 08:33 Dose: Not Given Levobunolol HCl (Betagan 0.5% Oph) 1 drops OP BID [facility] Stop: 12/15/18 20:59 Last Admin: 11/25/18 08:30 Dose: Not Given Levothyroxine Sodium (Synthroid) 25 mcg PO DAILYBB [facility]ARA Stop: 12/15/18 06:29 Last Admin: 11/25/18 06:15 Dose: 25 mcg Loperamide HCl (Imodium A-D Liquid) 2 mg PO Q3H PRN PRN Reason: after each loose stool PRN Stop: 12/21/18 09:19 Lubiprostone (Amitiza) 24 mcg PO BID [facility] Stop: 12/14/18 21:59 Last Admin: 11/16/18 08:40 Dose: 24 mcg Magnesium Hydroxide (Milk Of Magnesia) 30 ml PO Q6H PRN PRN Reason: Constipation Stop: 12/14/18 20:28 Metoprolol Tartrate (Lopressor) 25 mg PO BID [facility] Stop: 12/16/18 20:59 Last Admin: 11/25/18 08:32 Dose: 25 mg Miscellaneous (Order Awaiting Action) 1 ea N/A QS [facility] Stop: 12/15/18 00:00 Last Admin: 11/25/18 15:22 Dose: Not Given Miscellaneous (Carbohydrates For Hypoglycemia) 15 - 30 gm PO UD PRN PRN Reason: Hypoglycemia Treatment Stop: 12/14/18 20:28 Miscellaneous (Order Awaiting Action) 1 ea N/A QS [facility] Stop: 12/15/18 00:00 Last Admin: 11/25/18 15:22 Dose: Not Given Miscellaneous (Order Awaiting Action) 1 ea N/A QS [facility] Stop: 12/15/18 00:00 Last Admin: 11/25/18 15:22 Dose: Not Given Norethindrone (Aygestin) 5 mg PO BID [facility] Stop: 12/14/18 20:59 Last Admin: 11/25/18 08:30 Dose: 5 mg Ondansetron HCl (Zofran) 4 mg IV Q4H PRN PRN Reason: Nausea Stop: 12/22/18 18:59 Last Admin: 11/25/18 13:42 Dose: 4 mg Polyethylene Glycol (Miralax Powder Packet) 17 gm PO BID [facility] Stop: 12/14/18 20:59 Last Admin: 11/25/18 08:32 Dose: Not Given Psyllium Hydrophilic Mucilloid (Metamucil) 1 pkt PO QAM [facility] Stop: 12/15/18 08:59 Last Admin: 11/25/18 08:32 Dose: Not Given Tolterodine Tartrate (Detrol La) 2 mg PO DAILY [facility] Stop: 12/15/18 08:59 Last Admin: 11/25/18 08:31 Dose: 2 mg Vitamin B Complex (Vitamin B Complex) [facility] Stop: 12/15/18 08:59 Last Admin: 11/25/18 08:33 Dose: Not Given Resident Activity Tracking Resident Involvement: Resident Care Provided Care Provided: Adult Hospital Medicine
[2018-11-26] MEDS: LEVOTHYROXINE SODIUM 25 MCG TABLET PO SCH (06:10)
[2018-11-26 06:56] LABS: Basophils # (auto) 0.05 K/uL (0-0.2); Basophils % (auto) 0.7 %; Eosinophils # (auto) 0.14 K/uL (0-0.5); Hematocrit (blood only) 40.8 % (37-47); Hemoglobin 13.3 g/dL (12.0-16.0); Immature Granulocytes # (auto) 0.14 K/uL (0.00-0.02); Lymphocytes % (auto) 16.8 %; Mean Corpuscular Hgb Conc 32.6 g/dL (32-36); Mean Corpuscular Volume 84.3 fL (80-100); Mean Platelet Volume 10.1 fL (7.4-10.4); Monocytes # (auto) 0.75 K/uL (0.11-0.59); Monocytes % (auto) 10.5 %; Neutrophils # (auto) 4.87 K/uL (1.4-6.5); Nucleated RBC # (auto) 0.06 K/uL (0-0); Nucleated RBC % (auto) 0.9 %; Platelet Count 200 K/uL (130-400); RDW Coefficient of Variation 16.2 % (11.5-14.5); RDW Standard Deviation 49.1 fL (36.4-46.3); Red Blood Count 4.84 M/uL (4.2-5.4); White Blood Count 7.15 K/uL (4.8-10.8)
[2018-11-26 07:33] LABS: Albumin Level 2.3 gm/dl (3.4-5.0); BUN Creatinine Ratio 28.2 (10-20); Calcium 10.3 mg/dl (8.5-10.1); Creatinine Clr Calc Pharmacy 93.8 ml/min; Est GFR (Non-African American) 87.2; Potassium 3.6 mmol/L (3.5-5.1)
[2018-11-26 07:36] LABS: Albumin Globulin Ratio 0.5 (0.9-2); Bilirubin,Total 0.6 mg/dl (0.2-1); Globulin 4.8 gm/dl (2.5-4.0); Total Protein 7.1 gm/dl (6.4-8.2)
[2018-11-26] MEDS: LEVOBUNOLOL HCL 0.5% OP SOLN 5 ML BTL OP SCH (08:09)
[2018-11-26] MEDS: CLOPIDOGREL BISULFATE 75 MG TAB PO SCH (08:09)
[2018-11-26] MEDS: ATORVASTATIN 40 MG TAB PO SCH (08:10)
[2018-11-26] MEDS: METOPROLOL TARTRATE 25 MG TAB PO SCH (08:10)
[2018-11-26] MEDS: LATANOPROST 0.005% OP SOLN 2.5 ML BTL OP SCH (08:11)
[2018-11-26] MEDS: POLYETHYLENE (MIRALAX) 17 GM PACK PO SCH (08:12)
[2018-11-26] MEDS: PSYLLIUM 58.6% POWDER PACKET PO SCH (08:12)
[2018-11-26] MEDS: VITAMIN B COMPLEX TAB PO SCH (08:12)
[2018-11-26] MEDS: buPROPion HCl 75 MG TABLET PO SCH (08:12)
[2018-11-26] MEDS: GABAPENTIN 250 MG/5 ML 470 ML BTL PO SCH ×2 (08:12→14:52)
[2018-11-26] MEDS: lamoTRIgine 100 MG TAB PO SCH (08:13)
[2018-11-26] MEDS: TOLTERODINE TARTRATE LA 2 MG CAPCR PO SCH (08:15)
[2018-11-26] MEDS: DULOXETINE HCL 60 MG CAP PO SCH (08:15)
[2018-11-26] MEDS: CLOTRIMAZOLE 10 MG TROCHE BUCCAL SCH ×2 (08:16→12:33)
[2018-11-26] MEDS: NORETHINDRONE 5 MG TAB PO SCH (08:16)
[2018-11-26] MEDS: INSULIN ASPART 100 UNITS/ML 3 ML PEN SC SCH ×2 (09:06→12:33)
[2018-11-26] MEDS: ONDANSETRON INJ 2 MG/ML 2 ML VIAL IV PRN (09:10)
[2018-11-26] MEDS: HYDROCODONE/APAP 2.5MG/108MG ELIX 5 ML UDP PO PRN (12:33)
--- NOTE | 2018-11-26 13:29 | Discharge Summary ---
Date of Service November 26, 2018 Principal Diagnosis sclc Discharge Exam Constitutional WD/WN, vitals as above + obese Eyes PERRL, conjunctivae normal, anicteric sclerae ENMT external ear and nose normal, oropharynx normal Respiratory CTAB anteriorly. Posterior not able to be examined. Cardiovascular RRR, no murmur, no edema Gastrointestinal (Abdomen) normal bowel sounds, soft, nontender, no hepatosplenomegaly Skin no rashes, warm and dry Psychiatric Orientation: alert and oriented x 3 Affect: + anxious affect Discharge Data Allergies Allergy/AdvReac Type Severity Reaction Status Date / Time aripiprazole Allergy Intermediate confused Verified 11/14/18 16:22 cephalexin Allergy Unknown HIVES Unverified 11/14/18 16:22 Sulfa (Sulfonamide Allergy Unknown . Verified 11/14/18 16:22 Antibiotics) Consultations 11/14/18 17:51 ED Decision to Admit Stat 11/14/18 20:29 Consult Case Management - Discharge Planning Routine Consult Hematology Routine Consult Pulmonology Routine 11/15/18 18:31 Consult Gastroenterology Routine 11/17/18 12:06 Consult Psychiatry Routine 11/17/18 16:56 Consult Patient Rep / Service Excellence [Consult Patient Services] Routine 11/18/18 14:26 Consult Radiology Routine 11/21/18 17:02 Consult Case Management - Discharge Planning Routine 11/22/18 10:14 Consult Palliative Care Routine 11/22/18 12:32 Consult Oncology Routine Ordered Studies 11/14/18 15:58 CT abd pelvis wo con Stat CT lumbar spine wo con Stat 11/15/18 18:29 CT chest wo con Routine CT head/brain wo con Routine 11/19/18 08:18 US FNA w/img 1st lesion Routine Hospital Course (1) SCLC (small cell lung carcinoma): 48yo with a complex PMHx of HTN, Anxiety/Depression, ROSIBEL, hypothyroid, HLD , COPD, DM II, morbid obesity, alcohol abuse , Chronic LBP, and lung cancer diagnosed late 2017 presented to [facility] on 11/14. She has been ill over the last few months. Her primary complaints were generalized weakness, ~20-30lb weight loss, and difficulty eating. She noted food got stuck high in her neck. Denied any vomiting, hematemesis, or regurgitation. She was seen in the ER in October for a somewhat similar constellation of symptoms. At that time, she had a CT that revealed an indeterminate 37 mm right hepatic lobe lesion, an indeterminate 11 mm peritoneal nodule located anterior to the left lobe the liver, and a 4 cm lobulated right adnexal structure, likely representing a mildly enlarged right ovary. She also had an XU and mild hypercalcemia on previous admission. Her ED physicians recommended admission, but she refused and left AMA. 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 In the ER, she had a more marked hypercalcemia and XU. She had some pain in her back and legs, though a lumbar spine MRI was negative for masses or fractures. The following was the medical management during her stay here: 1) Metastatic small cell carcinoma -Pt got a CT of chest and it showed: Extensive metastatic disease within the neck, chest, and visualized upper abdomen as described above. Dominant right peritracheal/hilar soft tissue mass measures up to 8.[address] Head showed: No acute intracranial abnormality. Pt eventually got a successful ultrasound guided fine needle aspiration of a 1.4 cm upper omental nodule, which pathology reports showed metastatic small cell cancer. Heme/onc was consulted and they discussed diagnosis, prognosis, and options moving forward. They recommended a salvage treatment with many reservations given considerable risk in aggressive tx (further decline, multiorgan failure and subsequent ). Pt requested a 2nd opinion with [facility] and they recommended as much, and suggested a possible Brain MRI to r/o brain mets, which pt was not able tolerate MRI 2/2 claustrophobia. Palliative care was also consulted and after extensive conversation it was determined that patient's goal was to return home under hospice care. 2) Respiratory distress -We had a concern of aspiration event/fluid overload 11/20 and got an CXR, which showed no change compared to the prior chest CT, Patchy nodular right mid to lower lung zone densities persist, Right hilar/paratracheal mass is again noted. 3) Dysphagia -Pt's difficulty swallowing was likely 2/2 impingement from metastatic mass as shown on CT chest. Barium swallow study showed mild dysmotility, but was otherwise normal. GI was consulted and stated the following: Normal upper gastrointestinal series several weeks ago. Upper endoscopy is not indicated in this setting, it would not add to her care. Pt was on clear liquids during stay here. Nystatin was added to empirically treat for thrush. 4) Chronic Pain -Pt's pain was managed with Gabapentin and Cymbalta for chronic pain. Cymbalta dose increased to 90mg to also help with new arm pain that presented during stay and anxiety related to dx. Hydrocodone was d/c initially 2/2 to pt's delirium (see below), but was resumed as likely not a cause of her acute delirium given that she tolerated well in past. Pt's pain was well managed for the most part, per pt. 5) Delirium -Per pt's daughter, pt was having hallucinations and was just not herself. Psych was consulted and stated that it was likely 2/2 to use of opiates, change in environment, multiple medical conditions including metastatic cancer, UTI. 6) Bipolar ds and anxiety -Pt's was closely monitored on Lamictal 150 mg for SJS given that she had been off of it for 1-2 months, but tolerated well during stay here. 7) XU -Pt's XU initially likely pre-renal failure due to dehydration as Cr trended down with fluid hydration. Likely due to salt wasting (HZT use) and poor intake (anorexia). Pt was continued on fluids and Nephrotoxic meds were d/c- Diclofenac , Lisionpril, HZT. At time of d/c, XU was resolved, Cr .87. 8) DM Type II -Pt's DM2 managed with ISS. A1c was 7.1 here. 9) Hypothyroidism -Managed with home meds synthroid 11) HLD -managed with home meds atorvastatin 12) ROSIBEL -Pt was noncompliant with CPAP, so we used bedtime O2 NC. There was no sign of CO2 retention. DVT Prophylaxis was given with heparin and d/c the day before d/c. At time of d/ c, pt has no other acute concerns or complaints. Total Time Total Time Spent Total Time Spent (In Minutes): <30 min Discharge Plan Discharge Items Patient Disposition: Hospice - Home Reason For Visit: BACK PAIN Discharge Diagnosis: SCLC Discharge Goals: Decrease discomfort Activity: Per 'Additional Instructions' section Non-emergency contact: Primary Care Provider Call non-emergency contact if: your pain is concerning for you Follow-up/Referrals: [facility] [Outside] - 11/26/18 1:30 pm (Follow up with at [facility] on November 26 2018, 1:30 pm) Diet: Clear liquid Addtl Provider Instructions: You were admitted with worsening difficulty eating and Low back pain. You got a CT of chest and it showed extensive metastatic disease within the neck, chest, and upper abdomen. You eventually got a successful ultrasound biopsy of your liver nodule, which pathology reports showed as metastatic small cell cancer. Heme/onc was consulted and they discussed diagnosis, prognosis, and options moving forward recommended a salvage treatment with many reservations given considerable risk in aggressive tx (further decline, multiorgan failure and subsequent ). In talking with palliative care, you and your family have chosen home hospice moving forward. Our goal is to make you as comfortable as possible. Thank you for allowing us to participate in your care. Prescriptions: New oxycodone 5 mg/5 mL solution 2.5 mg PO Q8H PRN (Reason: pain) Qty: 15 RF: 0 Continue polyethylene glycol 3350 [Miralax] 17 gram Powder In Packet 17 g PO BID RF: 0 levothyroxine 25 mcg Tablet 25 mcg PO DAILY RF: 0 bupropion HCl 75 mg Tablet 75 mg PO TID RF: 0 docusate sodium [Colace] 100 mg Capsule 100 mg PO BID RF: 0 psyllium husk [Metamucil] 0.52 gram Capsule 0.52 g PO DAILY RF: 0 lubiprostone [Amitiza] 24 mcg Capsule 24 mcg PO BID RF: 0 tolterodine 2 mg Capsule,Extended Release 24hr 2 mg PO DAILY RF: 0 lamotrigine 150 mg Tablet 150 mg PO BID RF: 0 lidocaine [Aspercreme (lidocaine)] 4 % Adhesive Patch,Medicated 1 patch TOPICAL BID RF: 0 gabapentin 800 mg Tablet 800 mg PO TID RF: 0 furosemide 20 mg Tablet 20 mg PO DAILY PRN (Reason: Fluid Retention) RF: 0 albuterol sulfate [ProAir HFA] 90 mcg/actuation Hfa Aerosol Inhaler 2 puff INHALATION Q6H PRN (Reason: Shortness Of Breath) RF: 0 ipratropium bromide 0.03 % Strang,Non-Aerosol 2 spray INTRANASAL BID PRN (Reason: Nasal Congestion) RF: 0 duloxetine 60 mg Capsule,Delayed Release(Dr/Ec) 60 mg PO DAILY RF: 0 umeclidinium-vilanterol [Anoro Ellipta] 62.5-25 mcg/actuation Blister With Device 1 inh INHALATION DAILY RF: 0 fluticasone furoate [Arnuity Ellipta] 200 mcg/actuation Blister With Device 1 inh INHALATION DAILY RF: 0 norethindrone acetate 5 mg tablet 5 mg PO BID RF: 0 buspirone 15 mg tablet 15 mg PO BID RF: 0 Discontinued atorvastatin 80 mg Tablet 80 mg PO DAILY RF: 0 glipizide 10 mg Tablet 10 mg PO BID RF: 0 pioglitazone 45 mg Tablet 45 mg PO DAILY RF: 0 clopidogrel 75 mg Tablet 75 mg PO DAILY RF: 0 aspirin [Aspirin Low Dose] 81 mg Tablet,Delayed Release (Dr/Ec) 81 mg PO DAILY RF: 0 metoprolol tartrate 50 mg Tablet 50 mg PO BID RF: 0 diclofenac sodium 75 mg Tablet,Delayed Release (Dr/Ec) 75 mg PO BID RF: 0 sitagliptin [Januvia] 100 mg Tablet 100 mg PO DAILY RF: 0 amlodipine 5 mg Tablet 5 mg PO DAILY RF: 0 blood glucose control, normal [OneTouch Ultra Control] Solution RF: 0 hydrocodone-acetaminophen 5-325 mg tablet 1 tab PO TID PRN (Reason: Pain) RF: 0 lisinopril 20 mg tablet 20 mg PO DAILY RF: 0 triamterene-hydrochlorothiazid 37.5-25 mg capsule 1 tab PO DAILY RF: 0 morphine 15 mg tablet extended release 15 mg PO TID PRN (Reason: Pain) RF: 0 B complex-vitamin C-folic acid 400 mcg tablet extended release 1 tab PO DAILY RF: 0 Stand-Alone Forms: [facility] Discharge Orders: Discharge Order (Routine); Ordered 11/26/18 Ordered By: Bin Ching Admission Data Admit Date/Time: 11/14/18 18:45 Attending Provider: Erlin Garcia Admit Provider: Julieta Talley Primary Care Provider: Brandee Guadarrama Other Providers: Julieta Talley ; Peter Camarena V ; Miryam Angulo ; Ankur Evangelista ; Carmen Escamilla ; Erlin Garcia ; Radha Abreu ; Debra Mares ; Johnie Perry ; Sudeep Black ; Junior Arana ; Collin Zapata ; Abdirahman Nance ; Deondre Trejo ; Maik Trevino ; Maik Pena ; Ade Ramirez ; Tony Khan ; Frank Hansen ; Lucrecia Head ; Ross Malin ; Ramya Lion ; Keenan Jimenez ; Abdirahman Franz ; Eugene Foy ; Ronald Hilliard ; Nile Araiza ; Bebo Escalona ; Km Rivera ; Srinivasa Fitzgerald ; Pedrito Kwon ; Therese Cartwright ; Noemi Willson ; Dipika Ramos Service: Medical Other Interventions: Discharge Summary Assessment (RN) Last Done: 11/26/18 14:27 DC Date/Time DO NOT enter until pt leaves facility: 11/26/18 15:45 Supervising Physician Co-Signing Physician Notes I personally examined the patient and verified all morrison points of history and exam, discussed case, and agree with decision making with Dr Ching. Does not want chemotherapy. Wants to go home. Hospice has been set up. Vitals noted, in general she is in no distress. HEENT normocephalic atraumatic mucous membranes are moist. Breathing is unlabored. Metastatic small cell lung cancer Unfortunately she has had quite a significant decline, her overall status is quite frail, and she does not want to endure chemotherapy even as a salvage. Provided empathy and support to the family. Home with hospice. Resident Activity Tracking Resident Involvement: Resident Care Provided Care Provided: Adult Hospital Medicine
--- NOTE | 2018-11-27 12:51 | Pulmonary Consultation ---
Date of Consultation December 12, 2018 History of Present Illness Attending Physician: Erlin Garcia DO Allergies Allergy/AdvReac Type Severity Reaction Status Date / Time aripiprazole Allergy Intermediate confused Verified 11/14/18 16:22 cephalexin Allergy Unknown HIVES Unverified 11/14/18 16:22 Sulfa (Sulfonamide Allergy Unknown . Verified 11/14/18 16:22 Antibiotics) Home Medications Home Medications Medication Instructions Recorded Confirmed Type albuterol sulfate [ProAir HFA] 2 puff INHALATION Q6H PRN 10/24/18 11/14/18 History bupropion HCl 75 mg PO TID 10/24/18 11/14/18 History docusate sodium [Colace] 100 mg PO BID 10/24/18 11/14/18 History duloxetine 60 mg PO DAILY 10/24/18 11/14/18 History fluticasone furoate [Arnuity 1 inh INHALATION DAILY 10/24/18 11/14/18 History Ellipta] furosemide 20 mg PO DAILY PRN 10/24/18 11/14/18 History gabapentin 800 mg PO TID 10/24/18 11/14/18 History ipratropium bromide 2 spray INTRANASAL BID PRN 10/24/18 11/14/18 History lamotrigine 150 mg PO BID 10/24/18 11/14/18 History levothyroxine 25 mcg PO DAILY 10/24/18 11/14/18 History lidocaine [Aspercreme (lidocaine)] 1 patch TOPICAL BID 10/24/18 11/14/18 History lubiprostone [Amitiza] 24 mcg PO BID 10/24/18 11/14/18 History polyethylene glycol 3350 [Miralax] 17 g PO BID 10/24/18 11/14/18 History psyllium husk [Metamucil] 0.52 g PO DAILY 10/24/18 11/14/18 History tolterodine 2 mg PO DAILY 10/24/18 11/14/18 History umeclidinium-vilanterol [Anoro 1 inh INHALATION DAILY 10/24/18 11/14/18 History Ellipta] buspirone 15 mg PO BID 11/14/18 11/14/18 History norethindrone acetate 5 mg PO BID 11/14/18 11/14/18 History oxycodone 2.5 mg PO Q8H PRN #15 ml 11/26/18 Rx Patient History Medical History Chronic back pain (Chronic) History of TIA (transient ischemic attack) (Chronic) History of asthma (Chronic) History of kidney stones (Chronic) History of diabetes mellitus (Chronic) History of hypertension (Chronic) Family History Mother Heart attack Physical Exam Vital Signs (Past 24 Hours): Last Vital Signs Temp 36.8 C 11/26/18 14:27 Pulse 90 11/26/18 14:27 Resp 18 11/26/18 14:27 BP 122/85 11/26/18 14:27 Pulse Ox 92 11/26/18 14:27
== END 2018-11-26 15:45 | disposition hospice, home (50) | DRG 683 ==
LOC: ED 15:05 → 4E 18:45 → SUATTDRO 18:45 → 4E 20:07